=== PATIENT | male | born 1960 | race Caucasian/White ===

== ENCOUNTER → 2016-02-16 | Outpatient (REF) | payer BC ==
[2016-02-16 11:59] LABS: ALBUMIN 3.8 GM/DL (3.2-5.2); ALBUMIN/GLOBULIN RATIO 0.95 (1.00-1.93); ALKALINE PHOSPHATASE 117 U/L (45-117); ALT/SGPT 18 U/L (12-78); ANION GAP 11 MEQ/L (8-16); AST/SGOT 9 U/L (15-37); BILIRUBIN,TOTAL 0.7 MG/DL (0.2-1.0); BLOOD UREA NITROGEN 11 MG/DL (7-18); CALCIUM LEVEL 9.5 MG/DL (8.5-10.1); CARBON DIOXIDE LEVEL 29 MEQ/L (21-32); CHLORIDE LEVEL 99 MEQ/L (98-107); CHOLESTEROL LEVEL 217 MG/DL (<200); CREATININE FOR GFR 0.77 MG/DL (0.70-1.30); GLOMERULAR FILTRATION RATE > 60.0 (>56); GLUCOSE, FASTING 239 MG/DL (70-105); POTASSIUM SERUM 4.2 MEQ/L (3.5-5.1); SODIUM LEVEL 139 MEQ/L (136-145); TOTAL PROTEIN 7.8 GM/DL (6.4-8.2); TRIGLYCERIDES LEVEL 189 MG/DL (<150)
[2016-02-16 13:00] LABS: BASO % 0.4 % (0.0-1.0); EOS # 0.1 K/mm3 (0.0-0.50); EOS % 1.2 % (0.0-3.0); LARGE UNSTAINED CELL # 0.2 K/mm3 (0.0-0.4); LARGE UNSTAINED CELL % 1.8 % (0.0-4.0); LYMPH # 1.4 K/mm3 (1.5-4.5); LYMPH % 16.3 % (24.0-44.0); MEAN CORPUSCULAR HEMOGLOBIN 29.5 pg (27.0-33.0); MEAN CORPUSCULAR HGB CONC 34.6 g/dl (32.0-36.5); MEAN CORPUSCULAR VOLUME 85.4 fl (80.0-96.0); MONO # 0.6 K/mm3 (0.0-0.8); MONO % 6.7 % (0.0-5.0); NEUTROPHILS # 6.2 K/mm3 (1.8-7.7); NEUTROPHILS % 73.6 % (36.0-66.0); PLATELET COUNT, AUTOMATED 318 k/mm3 (150-450); RED CELL DISTRIBUTION WIDTH 12.3 % (11.5-14.5); RETIC HEMOGLOBIN CONTENT CHr 29.4 PG (24-36); RETICULOCYTE ABSOLUTE ADVIA212 108 x10(9)/L (17-77); WHITE BLOOD COUNT 8.4 K/mm3 (4.0-10.0)
[2016-02-16 13:15] LABS: ERYTHROCYTE SEDIMENTATION RATE 60 mm/hr (0-20)
[2016-02-17 14:09] LABS: Lyme Disease IgG/IgM Antibodie <0.91 ISR (0.00-0.90); Lyme Disease IgM Ab Quantitati <0.80 index (0.00-0.79)
== END ==
LOC: M SFHCCLAY 08:02
PROVIDERS: ATTEND Nurse Practitioner Family
DX: E11.65 Type 2 diabetes mellitus with hyperglycemia (principal); E78.2 Mixed hyperlipidemia; Z12.5 Encounter for screening for malignant neoplasm of prostate
CPT/HCPCS: 80053; 80061; 82043; 83036; 85025; 85046; 85652; 86617; G0103

== ENCOUNTER → 2016-02-16 | Outpatient (CLI) | payer BC ==
--- NOTE | 2016-02-16 14:20 | REP ---
CERVICAL SPINE SERIES: Eight views. HISTORY: Neck pain. COMPARISON: Cervical spine views from 11/27/2006. FINDINGS: There is developmental fusion at the C4-5 disc and facet level, unchanged. There is straightening of the normal cervical lordosis. There is some limitation of flexion/extension range of motion, but no evidence of instability or subluxation is seen. There is degenerative disc disease at C5-6 and C6-7 with disc space narrowing and anterior fragmented osteophyte formation at both of these levels. These changes are not new but are a little more pronounced than on the 2006 prior exam. Swimmer's lateral view shows no additional abnormality. Open-mouth odontoid view is unremarkable. On the AP radiograph, there is mild facet hypertrophy bilaterally at C3-4. Oblique images show intact neural foramina bilaterally at each cervical level and normally aligned facets. IMPRESSION: 1. Developmental fusion of the disc and facet joints at C4-5. 2. Degenerative disc disease at C5-6 and C6-7 slightly more pronounced than on the 2006 prior study. 3. Mild osteoarthritic facet hypertrophy bilaterally at C3-4.
== END ==
LOC: M CLY 13:11
PROVIDERS: ATTEND Nurse Practitioner Family
DX: M54.2 Cervicalgia (principal)

== ENCOUNTER 2016-03-11 12:38 | Emergency (ER) | payer BC ==
[2016-03-11] MEDS ORDERED: KETOROLAC 30 MG/ML VIAL (J1885) As Ordered ONE (14:25)
[2016-03-11 14:50] LABS: MEAN CORPUSCULAR HEMOGLOBIN 28.4 pg (27.0-33.0); MEAN CORPUSCULAR VOLUME 83.5 fl (80.0-96.0); PLATELET COUNT, AUTOMATED 289 k/mm3 (150-450); RED CELL DISTRIBUTION WIDTH 13.7 % (11.5-14.5); WHITE BLOOD COUNT 8.3 K/mm3 (4.0-10.0)
[2016-03-11 15:03] LABS: ANION GAP 7 MEQ/L (8-16); BLOOD UREA NITROGEN 10 MG/DL (7-18); CALCIUM LEVEL 9.8 MG/DL (8.5-10.1); CARBON DIOXIDE LEVEL 29 MEQ/L (21-32); CHLORIDE LEVEL 103 MEQ/L (98-107); CREATININE FOR GFR 0.69 MG/DL (0.70-1.30); GLOMERULAR FILTRATION RATE > 60.0 (>56); GLUCOSE, FASTING 168 MG/DL (70-105); SODIUM LEVEL 139 MEQ/L (136-145)
[2016-03-11 15:16] LABS: BANDS 1 % (< 11); EOSINOPHILS 2 % (0-5)
--- NOTE | 2016-03-11 15:16 | REP ---
DUPLEX EXTREMITY VENOUS ULTRASOUND: Right lower extremity. HISTORY: Swelling. Question DVT. FINDINGS: The deep veins are anechoic and fully compressible from the groin to the popliteal fossa in the right lower extremity. Color flow imaging is homogeneous. Spectral Doppler interrogation demonstrates intact respiratory variation in flow and normal manual augmentation of flow. There is no evidence of deep vein thrombosis. There is an enlarged right groin lymph node measuring 4.4 x 1.5 x 4.0 cm. This displays persistent fatty hyperechoic center. IMPRESSION: One enlarged right groin lymph node is seen. Otherwise negative right lower extremity duplex venous ultrasound. No evidence of deep vein thrombosis. Signed by Johan Ruiz MD 03/11/2016 03:22 P
--- NOTE | 2016-03-11 15:30 | REP ---
Right foot four views : There is no fracture or dislocation. Mineralization and joint spaces are normal. There are no calcifications or foreign bodies. Impression: Negative right foot . Signed by Josue Solano MD 03/11/2016 03:21 P
[2016-03-11 15:36] LABS: ERYTHROCYTE SEDIMENTATION RATE 56 mm/hr (0-20)
--- NOTE | 2016-03-11 16:25 | EDDOCDS ---
Nurse's Notes [facility] Name: Mustapha Lares Age: 55 yrs Sex: Male : 1960 Arrival Date: 03/11/2016 Time: 12:38 Bed PR Private MD: Basilio Gu W Diagnosis: Pain in right ankle and joints of right foot;Low back pain Presentation: 03/11 12:42 Presenting complaint: Patient states: Pt presents with c/o severe ankle pain and dls swelling bilaterally more so on right. PMD r/o gout and lyme disease but sx continue. The patients lower extremity appears normal on examination. Adult Sepsis Screening: The patient does not have new or worsening altered mentation. Patient's respiratory rate is less than 22. Systolic blood pressure is greater than 100. Patient has a qSOFA score of 0- Negative Sepsis Screen. Suicide/Homicide risk assessment- the patient denies having any suicidal and/or homicidal ideations and does not present with any other emotional, behavioral or mental health complaints. 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 Transition of care: patient was not received from another setting of care. 12:42 Acuity: ANGIE Level 3 dls 12:42 Method Of Arrival: Walkin/Carried/Asstd dls Triage Assessment: 12:48 General: Appears uncomfortable, Behavior is cooperative. Pain: Pain currently is 8 out dls of 10 on a pain scale. HIV screening NA for this visit Offered previously. Musculoskeletal: Reports pain in right leg and left leg. Historical: - Allergies: beta blockers; Dhaktps-Hry-Pzh Reductase Inhibitors; BLANE INHIBITORS; - Home Meds: 1. Lantus 100 unit/mL Sub-Q crtg 60 unit daily 2. famotidine 10 mg Oral tab 1 tab once daily - PMHx: Diabetes - IDDM: controlled; Kidney stones; - PSHx: Gastric Bypass; Hernia repair; leg surgery; - Social history: Smoking status: Patient/guardian denies using No barriers to communication noted, The patient speaks fluent Syrian. - : The pt / caregiver states he / she is not on anticoagulants. Home medication list is obtained from the patient. - Exposure Risk Screening:: None identified. Vital Signs: 12:40 BP 167 / 101; Pulse 74; Resp 18 S; Temp 96.3(O); Pulse Ox 99% on R/A; Weight 120.2 kg dd6 (R); Height 6 ft. 2 in. (187.96 cm) (R); 16:17 BP 155 / 89; Pulse 72; Resp 18; Temp 98.5(TE); Pulse Ox 96% on R/A; Pain 4/10; ar3 12:40 Body Mass Index 34.02 (120.20 kg, 187.96 cm) dd6 Vitals: 12:40 Log In Time: March 11, 2016 at 12:38. dd6 ED Course: 12:40 Patient visited by Feliz Morton PCA. dd6 12:40 Basilio Gu is Private Physician. dd6 12:40 Patient moved to Waiting dd6 12:41 Patient moved to Pre RCE dd6 12:44 Triage Initiated dls 13:51 Patient moved to Triage 1 ar3 13:59 Manny Anderson PA is PHCP. mo1 13:59 Danny Rocha MD is Attending Physician. mo1 14:07 Patient visited by Manny Anderson PA. mo1 14:38 Patient moved to TR1 ar3 14:38 CRP Sent. ar3 14:38 ESR Sent. ar3 14:38 BMP Sent. ar3 14:38 CBC with Diff Sent. ar3 14:38 VENITA Sent. ar3 14:46 [facility] [place] Agreement was scanned into [employer] and attached to record. mm15 14:48 Patient moved to Ultrasound am10 15:03 Patient moved to TR1 am10 15:11 DIFFERENTIAL NO CHARGE Sent. ar3 15:37 US Lower Extremity R/O DVT Returned. EDMS 15:37 Foot, Complete Returned. EDMS 15:57 Patient moved to PR2 / 26 ms18 16:06 Patient visited by Fidelina Rosales PCA. ar3 16:09 Trung Day DPM is Referral Physician. mo1 16:09 Domo Miranda DPM is Referral Physician. mo1 16:09 Basilio Gu is Referral Physician. mo1 16:17 Patient visited by Fidelina Rosales PCA. ar3 Administered Medications: 14:15 Drug: ketorolac 60 mg [ketorolac 30 mg/mL (1 mL) injection solution (2 mL)] Route: IM; kcs Site: left deltoid; Order Results: Lab Order: CBC with Diff; SPEC'M 03/11/16 14:36 Test: WHITE BLOOD COUNT; Value: 8.3; Range: 4.0-10.0; Units: K/mm3; Status: F Test: RED BLOOD COUNT; Value: 5.09; Range: 4.30-6.10; Units: M/mm3; Status: F Test: HEMOGLOBIN; Value: 14.4; Range: 14.0-18.0; Units: g/dl; Status: F Test: HEMATOCRIT; Value: 42.5; Range: 42.0-52.0; Units: %; Status: F Test: MEAN CORPUSCULAR VOLUME; Value: 83.5; Range: 80.0-96.0; Units: fl; Status: F Test: MEAN CORPUSCULAR HEMOGLOBIN; Value: 28.4; Range: 27.0-33.0; Units: pg; Status: F Test: MEAN CORPUSCULAR HGB CONC; Value: 34.0; Range: 32.0-36.5; Units: g/dl; Status: F Test: RED CELL DISTRIBUTION WIDTH; Value: 13.7; Range: 11.5-14.5; Units: %; Status: F Test: PLATELET COUNT, AUTOMATED; Value: 289; Range: 150-450; Units: k/mm3; Status: F Test: NEUTROPHILS; Value: 74; Range: 35-75; Units: %; Status: F Test: BANDS; Value: 1; Range: < 11; Units: %; Status: F Test: LYMPHOCYTES; Value: 20; Range: 16-52; Units: %; Status: F Test: MONOCYTES; Value: 3; Range: 0-8; Units: %; Status: F Test: EOSINOPHILS; Value: 2; Range: 0-5; Units: %; Status: F Test: RBC MORPHOLOGY; Value: NORMAL; Status: F Lab Order: BMP; SPEC'M 03/11/16 14:36 Test: GLUCOSE, FASTING; Value: 168; Range: 70-105; Abnormal: Above high normal; Units: MG/DL; Status: F Test: BLOOD UREA NITROGEN; Value: 10; Range: 7-18; Units: MG/DL; Status: F Test: CREATININE FOR GFR; Value: 0.69; Range: 0.70-1.30; Abnormal: Below low normal; Units: MG/DL; Status: F Test: GLOMERULAR FILTRATION RATE; Value: > 60.0; Range: >56; Status: F Test: SODIUM LEVEL; Value: 139; Range: 136-145; Units: MEQ/L; Status: F Test: POTASSIUM SERUM; Value: 4.0; Range: 3.5-5.1; Units: MEQ/L; Status: F Test: CHLORIDE LEVEL; Value: 103; Range: 98-107; Units: MEQ/L; Status: F Test: CARBON DIOXIDE LEVEL; Value: 29; Range: 21-32; Units: MEQ/L; Status: F Test: ANION GAP; Value: 7; Range: 8-16; Abnormal: Below low normal; Units: MEQ/L; Status: F Test: CALCIUM LEVEL; Value: 9.8; Range: 8.5-10.1; Units: MG/DL; Status: F Test Note: ; Units are mL/min/1.73 m2 Chronic Kidney Disease Staging per NKF: Stage I & II GFR >=60 Normal to Mildly Decreased Stage III GFR 30-59 Moderately Decreased Stage IV GFR 15-29 Severely Decreased Stage V GFR <15 Very Little GFR Left ESRD GFR <15 on FLIGHT CREW TIME CLERK Lab Order: ESR; SPEC'M 03/11/16 14:36 Test: ERYTHROCYTE SEDIMENTATION RATE; Value: 56; Range: 0-20; Abnormal: Above high normal; Units: mm/hr; Status: F Lab Order: CRP; SPEC'M 03/11/16 14:36 Test: C REACTIVE PROTEIN QUANTITATIV; Value: 6.56; Range: 0.00-0.30; Abnormal: Above high normal; Units: MG/DL; Status: F Lab Order: PLATELET ESTIMATE; SPEC'M 03/11/16 14:36 Test: PLATELET ESTIMATE; Value: NORMAL; Range: NORMAL; Status: F Radiology Order: US Lower Extremity R/O DVT Test: US Lower Extremity R/O DVT REASON FOR EXAMINATION: swelling; DUPLEX EXTREMITY VENOUS ULTRASOUND: Right lower extremity.; ; HISTORY: Swelling. Question DVT.; ; FINDINGS: The deep veins are anechoic and fully compressible from the groin to; the popliteal fossa in the right lower extremity. Color flow imaging is; homogeneous. Spectral Doppler interrogation demonstrates intact respiratory; variation in flow and normal manual augmentation of flow. There is no evidence; of deep vein thrombosis. There is an enlarged right groin lymph node measuring; 4.4 x 1.5 x 4.0 cm. This displays persistent fatty hyperechoic center.; ; IMPRESSION: One enlarged right groin lymph node is seen. Otherwise negative; right lower extremity duplex venous ultrasound. No evidence of deep vein; thrombosis.; ; ; Signed by; Johan Ruiz MD 03/11/2016 03:22 P; Radiology Order: Foot, Complete Test: Foot, Complete REASON FOR EXAMINATION: swelling; Right foot four views :; ; There is no fracture or dislocation.; ; Mineralization and joint spaces are normal.; ; There are no calcifications or foreign bodies.; ; Impression:; ; Negative right foot .; ; ; Signed by; Josue Solano MD 03/11/2016 03:21 P; Outcome: 16:10 Discharge ordered by Provider. mo1 16:24 Patient left the ED. kcs Signatures: Dispatcher [employer] EDMS Alessia Perez RN RN kcs Leigh Oliva RN RN dls Lilian Landry am10 Feliz Morton, SCREENING TECH SCREENING TECH dd6 Fidelina Rosales, SCREENING TECH SCREENING TECH ar3 Manny Anderson PA PA mo1 Cliff Hassan mm15 Smiley Danielle RN RN ms18 MTDD
--- NOTE | 2016-03-11 16:25 | EDDOCDS ---
Physician Documentation [facility] Name: Mustapha Lares Age: 55 yrs Sex: Male : 1960 Arrival Date: 03/11/2016 Time: 12:38 Bed Private MD: Basilio Gu W Disposition: 03/11/16 16:10 Discharged to Home/Self Care. Impression: Pain in right ankle and joints of right foot, Low back pain. - Condition is Stable. - Discharge Instructions: Arthralgia, Back Pain, Adult. - Prescriptions for Tylenol- Codeine #3 300-30 mg Oral Tablet - take 2 tablets by ORAL route every 6 hours As needed MDD: 4 tabs; 20 tablet. - Medication Reconciliation, Local Pharmacy Hours form. - Follow up: Trung Day DPM; When: Call to arrange an appointment; Reason: Recheck today's complaints, Continuance of care. Follow up: Domo Miranda DPM; When: Call to arrange an appointment; Reason: Recheck today's complaints, Continuance of care. Follow up: Basilio Gu; When: Call to arrange an appointment; Reason: Recheck today's complaints, Continuance of care. - Problem is new. - Symptoms are unchanged. Historical: - Allergies: beta blockers; Tzqanex-Byw-Dwp Reductase Inhibitors; NICOLAS INHIBITORS; - Home Meds: 1. Lantus 100 unit/mL Sub-Q crtg 60 unit daily 2. famotidine 10 mg Oral tab 1 tab once daily - PMHx: Diabetes - IDDM: controlled; Kidney stones; - PSHx: Gastric Bypass; Hernia repair; leg surgery; - Social history: Smoking status: Patient/guardian denies using No barriers to communication noted, The patient speaks fluent Indonesian. - : The pt / caregiver states he / she is not on anticoagulants. Home medication list is obtained from the patient. - Exposure Risk Screening:: None identified. Vital Signs: 03/11 12:40 BP 167 / 101; Pulse 74; Resp 18 S; Temp 96.3(O); Pulse Ox 99% on R/A; Weight 120.2 kg / dd6 265 lbs (R); Height 6 ft. 2 in. (187.96 cm) (R); 16:17 BP 155 / 89; Pulse 72; Resp 18; Temp 98.5(TE); Pulse Ox 96% on R/A; Pain 4/10; ar3 12:40 Body Mass Index 34.02 (120.20 kg, 187.96 cm) dd6 MDM: 14:19 ketorolac 60 mg IM once ordered. mo1 14:20 VENITA Ordered. EDMS 14:20 CBC with Diff Ordered. EDMS 14:20 BMP Ordered. EDMS 14:20 ESR Ordered. EDMS 14:20 CRP Ordered. EDMS 14:20 US Lower Extremity R/O DVT Ordered. EDMS 14:21 Foot, Complete Ordered. EDMS 14:45 Financial registration complete. mm15 14:46 [facility] Payment Agreement was scanned into [employer] and attached to record. mm15 14:52 DIFFERENTIAL NO CHARGE Ordered. EDMS 15:34 CRP Reviewed. mo1 15:34 BMP Reviewed. mo1 15:35 CBC with Diff Reviewed. mo1 15:55 ESR Reviewed. mo1 15:56 PLATELET ESTIMATE Reviewed. mo1 16:08 Nicolas Wrap ordered. mo1 Administered Medications: 14:15 Drug: ketorolac 60 mg [ketorolac 30 mg/mL (1 mL) injection solution (2 mL)] Route: IM; kcs Site: left deltoid; Signatures: Dispatcher [employer] Alessia Gutierrez RN RN kcs Scott, Debra, RN RN dls O'Hagan, Michael, PA PA mo1 Cliff Hassan mm15 The chart was reviewed and I authenticate all verbal orders and agree with the evaluation and treatment provided.Attachments: 14:46 [facility] Payment Agreement mm15 MTDD
--- NOTE | 2016-03-13 17:25 | EDDOCDS ---
Physician Documentation [facility] Name: Mustapha Lares Age: 55 yrs Sex: Male : 1960 Arrival Date: 03/11/2016 Time: 12:38 Bed Private MD: Basilio Gu W Disposition: 03/11/16 16:10 Discharged to Home/Self Care. Impression: Pain in right ankle and joints of right foot, Low back pain. - Condition is Stable. - Discharge Instructions: Arthralgia, Back Pain, Adult. - Prescriptions for Tylenol- Codeine #3 300-30 mg Oral Tablet - take 2 tablets by ORAL route every 6 hours As needed MDD: 4 tabs; 20 tablet. - Medication Reconciliation, Local Pharmacy Hours form. - Follow up: Trung Day DPM; When: Call to arrange an appointment; Reason: Recheck today's complaints, Continuance of care. Follow up: Domo Miranda DPM; When: Call to arrange an appointment; Reason: Recheck today's complaints, Continuance of care. Follow up: Basilio Gu; When: Call to arrange an appointment; Reason: Recheck today's complaints, Continuance of care. - Problem is new. - Symptoms are unchanged. Historical: - Allergies: beta blockers; Mcfeapo-Ukx-Yzm Reductase Inhibitors; NICOLAS INHIBITORS; - Home Meds: 1. Lantus 100 unit/mL Sub-Q crtg 60 unit daily 2. famotidine 10 mg Oral tab 1 tab once daily - PMHx: Diabetes - IDDM: controlled; Kidney stones; - PSHx: Gastric Bypass; Hernia repair; leg surgery; - Social history: Smoking status: Patient/guardian denies using No barriers to communication noted, The patient speaks fluent Persian. - : The pt / caregiver states he / she is not on anticoagulants. Home medication list is obtained from the patient. - Exposure Risk Screening:: None identified. Vital Signs: 03/11 12:40 BP 167 / 101; Pulse 74; Resp 18 S; Temp 96.3(O); Pulse Ox 99% on R/A; Weight 120.2 kg / dd6 265 lbs (R); Height 6 ft. 2 in. (187.96 cm) (R); 16:17 BP 155 / 89; Pulse 72; Resp 18; Temp 98.5(TE); Pulse Ox 96% on R/A; Pain 4/10; ar3 12:40 Body Mass Index 34.02 (120.20 kg, 187.96 cm) dd6 MDM: 14:19 ketorolac 60 mg IM once ordered. mo1 14:20 VENITA Ordered. EDMS 14:20 CBC with Diff Ordered. EDMS 14:20 BMP Ordered. EDMS 14:20 ESR Ordered. EDMS 14:20 CRP Ordered. EDMS 14:20 US Lower Extremity R/O DVT Ordered. EDMS 14:21 Foot, Complete Ordered. EDMS 14:45 Financial registration complete. mm15 14:46 [facility] Payment Agreement was scanned into [employer] and attached to record. mm15 14:52 DIFFERENTIAL NO CHARGE Ordered. EDMS 15:34 CRP Reviewed. mo1 15:34 BMP Reviewed. mo1 15:35 CBC with Diff Reviewed. mo1 15:55 ESR Reviewed. mo1 15:56 PLATELET ESTIMATE Reviewed. mo1 16:08 Nicolas Wrap ordered. mo1 22:12 T-Sheet-- Draft Copy was scanned into [employer] and attached to record. klr Administered Medications: 14:15 Drug: ketorolac 60 mg [ketorolac 30 mg/mL (1 mL) injection solution (2 mL)] Route: IM; kcs Site: left deltoid; Signatures: Dispatcher [employer] Alessia Gutierrez RN RN kcs Scott, Debra, RN RN dls O'Hagan, Michael, PA PA mo1 Cliff Hassan mm15 Lalitha Grullon klr The chart was reviewed and I authenticate all verbal orders and agree with the evaluation and treatment provided.Attachments: 14:46 [facility] Payment Agreement mm15 22:12 T-Sheet-- Draft Copy klr Chart Complete MTDD
--- NOTE | 2016-03-13 17:25 | EDDOCDS ---
Physician Documentation [facility] Name: Mustapha Lares Age: 55 yrs Sex: Male : 1960 Arrival Date: 03/11/2016 Time: 12:38 Bed Private MD: Basilio Gu W Disposition: 03/11/16 16:10 Discharged to Home/Self Care. Impression: Pain in right ankle and joints of right foot, Low back pain. - Condition is Stable. - Discharge Instructions: Arthralgia, Back Pain, Adult. - Prescriptions for Tylenol- Codeine #3 300-30 mg Oral Tablet - take 2 tablets by ORAL route every 6 hours As needed MDD: 4 tabs; 20 tablet. - Medication Reconciliation, Local Pharmacy Hours form. - Follow up: Trung Day DPM; When: Call to arrange an appointment; Reason: Recheck today's complaints, Continuance of care. Follow up: Domo Miranda DPM; When: Call to arrange an appointment; Reason: Recheck today's complaints, Continuance of care. Follow up: Basilio Gu; When: Call to arrange an appointment; Reason: Recheck today's complaints, Continuance of care. - Problem is new. - Symptoms are unchanged. Historical: - Allergies: beta blockers; Javrsvw-Buy-Uql Reductase Inhibitors; NICOLAS INHIBITORS; - Home Meds: 1. Lantus 100 unit/mL Sub-Q crtg 60 unit daily 2. famotidine 10 mg Oral tab 1 tab once daily - PMHx: Diabetes - IDDM: controlled; Kidney stones; - PSHx: Gastric Bypass; Hernia repair; leg surgery; - Social history: Smoking status: Patient/guardian denies using No barriers to communication noted, The patient speaks fluent Tajik. - : The pt / caregiver states he / she is not on anticoagulants. Home medication list is obtained from the patient. - Exposure Risk Screening:: None identified. Vital Signs: 03/11 12:40 BP 167 / 101; Pulse 74; Resp 18 S; Temp 96.3(O); Pulse Ox 99% on R/A; Weight 120.2 kg / dd6 265 lbs (R); Height 6 ft. 2 in. (187.96 cm) (R); 16:17 BP 155 / 89; Pulse 72; Resp 18; Temp 98.5(TE); Pulse Ox 96% on R/A; Pain 4/10; ar3 12:40 Body Mass Index 34.02 (120.20 kg, 187.96 cm) dd6 MDM: 14:19 ketorolac 60 mg IM once ordered. mo1 14:20 VENITA Ordered. EDMS 14:20 CBC with Diff Ordered. EDMS 14:20 BMP Ordered. EDMS 14:20 ESR Ordered. EDMS 14:20 CRP Ordered. EDMS 14:20 US Lower Extremity R/O DVT Ordered. EDMS 14:21 Foot, Complete Ordered. EDMS 14:45 Financial registration complete. mm15 14:46 [facility] Payment Agreement was scanned into [employer] and attached to record. mm15 14:52 DIFFERENTIAL NO CHARGE Ordered. EDMS 15:34 CRP Reviewed. mo1 15:34 BMP Reviewed. mo1 15:35 CBC with Diff Reviewed. mo1 15:55 ESR Reviewed. mo1 15:56 PLATELET ESTIMATE Reviewed. mo1 16:08 Nicolas Wrap ordered. mo1 22:12 T-Sheet-- Draft Copy was scanned into [employer] and attached to record. klr Administered Medications: 14:15 Drug: ketorolac 60 mg [ketorolac 30 mg/mL (1 mL) injection solution (2 mL)] Route: IM; kcs Site: left deltoid; Signatures: Dispatcher [employer] Alessia Gutierrez RN RN kcs Scott, Debra, RN RN dls O'Hagan, Michael, PA PA mo1 Cliff Hassan mm15 Lalitha Grullon klr The chart was reviewed and I authenticate all verbal orders and agree with the evaluation and treatment provided.Attachments: 14:46 [facility] Payment Agreement mm15 22:12 T-Sheet-- Draft Copy klr Chart Complete MTDD
--- NOTE | 2016-03-13 17:25 | EDDOCDS ---
Nurse's Notes [facility] Name: Mustapha Lares Age: 55 yrs Sex: Male : 1960 Arrival Date: 03/11/2016 Time: 12:38 Bed PR Private MD: Basilio Gu W Diagnosis: Pain in right ankle and joints of right foot;Low back pain Presentation: 03/11 12:42 Presenting complaint: Patient states: Pt presents with c/o severe ankle pain and dls swelling bilaterally more so on right. PMD r/o gout and lyme disease but sx continue. The patients lower extremity appears normal on examination. Adult Sepsis Screening: The patient does not have new or worsening altered mentation. Patient's respiratory rate is less than 22. Systolic blood pressure is greater than 100. Patient has a qSOFA score of 0- Negative Sepsis Screen. Suicide/Homicide risk assessment- the patient denies having any suicidal and/or homicidal ideations and does not present with any other emotional, behavioral or mental health complaints. Status: Patient is not a off premise service representative or dependent. Transition of care: patient was not received from another setting of care. 12:42 Acuity: ANGIE Level 3 dls 12:42 Method Of Arrival: Walkin/Carried/Asstd dls Triage Assessment: 12:48 General: Appears uncomfortable, Behavior is cooperative. Pain: Pain currently is 8 out dls of 10 on a pain scale. HIV screening NA for this visit Offered previously. Musculoskeletal: Reports pain in right leg and left leg. Historical: - Allergies: beta blockers; Xfmhhng-Aby-Woj Reductase Inhibitors; BLANE INHIBITORS; - Home Meds: 1. Lantus 100 unit/mL Sub-Q crtg 60 unit daily 2. famotidine 10 mg Oral tab 1 tab once daily - PMHx: Diabetes - IDDM: controlled; Kidney stones; - PSHx: Gastric Bypass; Hernia repair; leg surgery; - Social history: Smoking status: Patient/guardian denies using No barriers to communication noted, The patient speaks fluent Bulgarian. - : The pt / caregiver states he / she is not on anticoagulants. Home medication list is obtained from the patient. - Exposure Risk Screening:: None identified. Screenin:20 Screening information is obtained from prior medical records. Fall risk: No risks kcs identified. Assistance ADL's: requires no assistance with activities of daily living. Abuse/DV Screen: The patient / caregiver reports he/she is: not in a situation that causes fear, pain or injury. Nutritional screening: On diabetic diet, lo salt. Advance Directives: Currently, there is no health care proxy. There is no living will. home support is adequate. Assessment: 16:20 Reassessment: Patient states symptoms have not improved. General: Appears comfortable, kcs well developed, well nourished, well groomed, Behavior is cooperative, pleasant. Pain: Location: left leg and right leg. Neurological: Level of Consciousness is awake, alert. Respiratory: Airway is patent Respiratory effort is even, unlabored, Respiratory pattern is regular, symmetrical. Derm: Skin is intact, is healthy with good turgor, Skin is dry, Skin is normal. Vital Signs: 12:40 BP 167 / 101; Pulse 74; Resp 18 S; Temp 96.3(O); Pulse Ox 99% on R/A; Weight 120.2 kg dd6 (R); Height 6 ft. 2 in. (187.96 cm) (R); 16:17 BP 155 / 89; Pulse 72; Resp 18; Temp 98.5(TE); Pulse Ox 96% on R/A; Pain 4/10; ar3 12:40 Body Mass Index 34.02 (120.20 kg, 187.96 cm) dd6 Vitals: 12:40 Log In Time: March 11, 2016 at 12:38. dd6 ED Course: 12:40 Patient visited by Feliz Morton PCA. dd6 12:40 Basilio Gu is Private Physician. dd6 12:40 Patient moved to Waiting dd6 12:41 Patient moved to Pre RCE dd6 12:44 Triage Initiated dls 13:51 Patient moved to Triage 1 ar3 13:59 Manny Anderson PA is PHCP. mo1 13:59 Danny Rocha MD is Attending Physician. mo1 14:07 Patient visited by Manny Anderson PA. mo1 14:38 Patient moved to TR1 ar3 14:38 CRP Sent. ar3 14:38 ESR Sent. ar3 14:38 BMP Sent. ar3 14:38 CBC with Diff Sent. ar3 14:38 VENITA Sent. ar3 14:46 [facility] Payment Agreement was scanned into TASCET and attached to record. mm15 14:48 Patient moved to Ultrasound am10 15:03 Patient moved to TR1 am10 15:11 DIFFERENTIAL NO CHARGE Sent. ar3 15:37 US Lower Extremity R/O DVT Returned. EDMS 15:37 Foot, Complete Returned. EDMS 15:57 Patient moved to PR2 / ms18 16:06 Patient visited by Fidelina Rosales PCA. ar3 16:09 Trung Day DPM is Referral Physician. mo1 16:09 Domo Miranda DPM is Referral Physician. mo1 16:09 Basilio Gu is Referral Physician. mo1 16:17 Patient visited by Fidelina Rosales PCA. ar3 16:20 The patient / caregiver is instructed regarding the plan of care and ED course. kcs 16:20 No IV's were initiated during this patient's visit. No procedures done that require kcs assistance. 22:12 T-Sheet-- Draft Copy was scanned into TASCET and attached to record. klr Administered Medications: 14:15 Drug: ketorolac 60 mg [ketorolac 30 mg/mL (1 mL) injection solution (2 mL)] Route: IM; kcs Site: left deltoid; Order Results: Lab Order: VENITA; SPEC'M 03/11/16 14:36 Test: ANTINUCLEAR ANTIBODIES DIRECT; Value: Negative; Range: Negative; Status: F Test Note: ; Performed at: RN - [facility] [address] [id number] Tobacco Buyer: Alcira De La Cruz MD, Phone: [phone] Lab Order: CBC with Diff; SPEC'M 03/11/16 14:36 Test: WHITE BLOOD COUNT; Value: 8.3; Range: 4.0-10.0; Units: K/mm3; Status: F Test: RED BLOOD COUNT; Value: 5.09; Range: 4.30-6.10; Units: M/mm3; Status: F Test: HEMOGLOBIN; Value: 14.4; Range: 14.0-18.0; Units: g/dl; Status: F Test: HEMATOCRIT; Value: 42.5; Range: 42.0-52.0; Units: %; Status: F Test: MEAN CORPUSCULAR VOLUME; Value: 83.5; Range: 80.0-96.0; Units: fl; Status: F Test: MEAN CORPUSCULAR HEMOGLOBIN; Value: 28.4; Range: 27.0-33.0; Units: pg; Status: F Test: MEAN CORPUSCULAR HGB CONC; Value: 34.0; Range: 32.0-36.5; Units: g/dl; Status: F Test: RED CELL DISTRIBUTION WIDTH; Value: 13.7; Range: 11.5-14.5; Units: %; Status: F Test: PLATELET COUNT, AUTOMATED; Value: 289; Range: 150-450; Units: k/mm3; Status: F Test: NEUTROPHILS; Value: 74; Range: 35-75; Units: %; Status: F Test: BANDS; Value: 1; Range: < 11; Units: %; Status: F Test: LYMPHOCYTES; Value: 20; Range: 16-52; Units: %; Status: F Test: MONOCYTES; Value: 3; Range: 0-8; Units: %; Status: F Test: EOSINOPHILS; Value: 2; Range: 0-5; Units: %; Status: F Test: RBC MORPHOLOGY; Value: NORMAL; Status: F Lab Order: [facility]; SPEC'M 03/11/16 14:36 Test: GLUCOSE, FASTING; Value: 168; Range: 70-105; Abnormal: Above high normal; Units: MG/DL; Status: F Test: BLOOD UREA NITROGEN; Value: 10; Range: 7-18; Units: MG/DL; Status: F Test: CREATININE FOR GFR; Value: 0.69; Range: 0.70-1.30; Abnormal: Below low normal; Units: MG/DL; Status: F Test: GLOMERULAR FILTRATION RATE; Value: > 60.0; Range: >56; Status: F Test: SODIUM LEVEL; Value: 139; Range: 136-145; Units: MEQ/L; Status: F Test: POTASSIUM SERUM; Value: 4.0; Range: 3.5-5.1; Units: MEQ/L; Status: F Test: CHLORIDE LEVEL; Value: 103; Range: 98-107; Units: MEQ/L; Status: F Test: CARBON DIOXIDE LEVEL; Value: 29; Range: 21-32; Units: MEQ/L; Status: F Test: ANION GAP; Value: 7; Range: 8-16; Abnormal: Below low normal; Units: MEQ/L; Status: F Test: CALCIUM LEVEL; Value: 9.8; Range: 8.5-10.1; Units: MG/DL; Status: F Test Note: ; Units are mL/min/1.73 m2 Chronic Kidney Disease Staging per NKF: Stage I & II GFR >=60 Normal to Mildly Decreased Stage III GFR 30-59 Moderately Decreased Stage IV GFR 15-29 Severely Decreased Stage V GFR <15 Very Little GFR Left ESRD GFR <15 on MERCURY RECOVERER Lab Order: ESR; SPEC'M 03/11/16 14:36 Test: ERYTHROCYTE SEDIMENTATION RATE; Value: 56; Range: 0-20; Abnormal: Above high normal; Units: mm/hr; Status: F Lab Order: CRP; [facility]' 03/11/16 14:36 Test: C REACTIVE PROTEIN QUANTITATIV; Value: 6.56; Range: 0.00-0.30; Abnormal: Above high normal; Units: MG/DL; Status: F Lab Order: PLATELET ESTIMATE; [facility]' 03/11/16 14:36 Test: PLATELET ESTIMATE; Value: NORMAL; Range: NORMAL; Status: F Radiology Order: US Lower Extremity R/O DVT Test: US Lower Extremity R/O DVT REASON FOR EXAMINATION: swelling; DUPLEX EXTREMITY VENOUS ULTRASOUND: Right lower extremity.; ; HISTORY: Swelling. Question DVT.; ; FINDINGS: The deep veins are anechoic and fully compressible from the groin to; the popliteal fossa in the right lower extremity. Color flow imaging is; homogeneous. Spectral Doppler interrogation demonstrates intact respiratory; variation in flow and normal manual augmentation of flow. There is no evidence; of deep vein thrombosis. There is an enlarged right groin lymph node measuring; 4.4 x 1.5 x 4.0 cm. This displays persistent fatty hyperechoic center.; ; IMPRESSION: One enlarged right groin lymph node is seen. Otherwise negative; right lower extremity duplex venous ultrasound. No evidence of deep vein; thrombosis.; ; ; Signed by; Johan Ruiz MD 03/11/2016 03:22 P; Radiology Order: Foot, Complete Test: Foot, Complete REASON FOR EXAMINATION: swelling; Right foot four views :; ; There is no fracture or dislocation.; ; Mineralization and joint spaces are normal.; ; There are no calcifications or foreign bodies.; ; Impression:; ; Negative right foot .; ; ; Signed by; Josue Solano MD 03/11/2016 03:21 P; Outcome: 16:10 Discharge ordered by Provider. mo1 16:20 Discharge Assessment: Patient awake, alert and oriented x 3. No cognitive and/or kcs functional deficits noted. Patient verbalized understanding of disposition instructions. Patient awake and alert. patient administered narcotics - no. The following High Risk Discharge criteria are identified: None. Discharged to home ambulatory, with significant other. Condition: stable. Discharge instructions given to patient, Instructed on discharge instructions, follow up and referral plans. medication usage, no driving heavy equipment, no drinking with medication, Demonstrated understanding of instructions, medications, Pt was receptive of discharge instructions/ teaching. No special radiology studies were completed. Property sent home with patient. 16:24 Patient left the ED. kcs Signatures: Dispatcher [employer] EDMS Alessia Perez RN RN Leigh Parrish RN RN dls Lilian Landry am10 Feliz Morton, PLANIMETER OPERATOR PLANIMETER OPERATOR dd6 Fidelina Rosales, PLANIMETER OPERATOR PLANIMETER OPERATOR ar3 Manny Anderson PA PA mo1 Cliff Hassan mm15 Smiley Danielle RN RN ms18 Lalitha Grullon Chart Complete MTDD
== END 2016-03-11 16:24 | disposition home or self-care (01) ==
LOC: M ED 12:38
DX: M54.9 Dorsalgia, unspecified (principal); M19.071 Primary osteoarthritis, right ankle and foot; M25.571 Pain in right ankle and joints of right foot; E11.9 Type 2 diabetes mellitus without complications; Z87.442 Personal history of urinary calculi; Z98.84 Bariatric surgery status; Z79.4 Long term (current) use of insulin; Z79.899 Other long term (current) drug therapy; Z88.8 Allergy status to other drugs, medicaments and biological substances
CPT/HCPCS: 36415; 73630; 80048; 85025; 85652; 86038; 86140; 93971; 96372; 99283; J1885

== ENCOUNTER → 2016-12-22 | Outpatient (REF) | payer BC | LOC: M LAB REF 09:21 | PROVIDERS: ATTEND Physician Assistant | DX: J02.9 Acute pharyngitis, unspecified (principal) ==

== ENCOUNTER → 2017-02-17 | Outpatient (REF) | payer BC ==
[2017-02-18 11:47] LABS: HEMATOCRIT 42.7 % (42.0-52.0); HEMOGLOBIN 14.4 g/dl (14.0-18.0); MEAN CORPUSCULAR HEMOGLOBIN 29.1 pg (27.0-33.0); MEAN CORPUSCULAR HGB CONC 33.7 g/dl (32.0-36.5); MEAN CORPUSCULAR VOLUME 86.3 fl (80.0-96.0); PLATELET COUNT, AUTOMATED 258 10^3/uL (150-450); RED BLOOD COUNT 4.95 10^6/uL (4.30-6.10); RED CELL DISTRIBUTION WIDTH 12.8 % (11.5-14.5); WHITE BLOOD COUNT 4.9 10^3/uL (4.0-10.0)
[2017-02-18 11:54] LABS: URIC ACID 4.9 MG/DL (3.5-7.2)
[2017-02-18 11:54] LABS: C REACTIVE PROTEIN QUANTITATIV < 0.30 MG/DL (0.00-0.30)
[2017-02-18 12:09] LABS: ERYTHROCYTE SEDIMENTATION RATE 9 mm/hr (0-20)
== END ==
LOC: M SFHCCLAY 14:57
DX: E11.65 Type 2 diabetes mellitus with hyperglycemia (principal); M79.1 Myalgia
CPT/HCPCS: 84550

== ENCOUNTER → 2017-06-09 | Outpatient (REF) | payer BC ==
[2017-06-09 11:38] LABS: BASO # 0.1 10^3/uL (0.0-0.2); BASO % 1.2 % (0.0-1.0); EOS # 0.2 10^3/uL (0.0-0.50); EOS % 5.4 % (0.0-3.0); HEMATOCRIT 36.8 % (42.0-52.0); HEMOGLOBIN 12.1 g/dl (13.5-17.5); IMMATURE GRANULOCYTE % 0.2 % (0-3.0); LYMPH # 1.3 10^3/uL (1.5-4.5); LYMPH % 31.4 % (24.0-44.0); MEAN CORPUSCULAR HEMOGLOBIN 29.4 pg (27.0-33.0); MEAN CORPUSCULAR HGB CONC 32.9 g/dl (32.0-36.5); MEAN CORPUSCULAR VOLUME 89.3 fl (80.0-96.0); MONO # 0.4 10^3/uL (0.0-0.8); MONO % 9.4 % (0.0-5.0); NEUTROPHILS # 2.2 10^3/uL (1.8-7.7); NEUTROPHILS % 52.4 % (36.0-66.0); PLATELET COUNT, AUTOMATED 265 10^3/uL (150-450); RED BLOOD COUNT 4.12 10^6/uL (4.30-6.10); WHITE BLOOD COUNT 4.3 10^3/uL (4.0-10.0)
[2017-06-09 11:47] LABS: ALBUMIN 3.9 GM/DL (3.2-5.2); ALBUMIN/GLOBULIN RATIO 1.18 (1.00-1.93); ALKALINE PHOSPHATASE 84 U/L (45-117); ALT/SGPT 20 U/L (12-78); ANION GAP 4 MEQ/L (8-16); AST/SGOT 15 U/L (7-37); BILIRUBIN,TOTAL 0.7 MG/DL (0.2-1.0); BLOOD UREA NITROGEN 17 MG/DL (7-18); CARBON DIOXIDE LEVEL 32 MEQ/L (21-32); CHLORIDE LEVEL 106 MEQ/L (98-107); CHOLESTEROL LEVEL 187 MG/DL (<200); CHOLESTEROL RISK RATIO 2.833 (<5); CREATININE FOR GFR 0.83 MG/DL (0.70-1.30); GLOMERULAR FILTRATION RATE > 60.0 (>56); GLUCOSE, FASTING 151 MG/DL (70-100); HDL CHOLESTEROL 66 MG/DL (>40); LDL CHOLESTEROL 104.8 MG/DL (<100); NON-HDL-C 121 MG/DL; POTASSIUM SERUM 3.9 MEQ/L (3.5-5.1); SODIUM LEVEL 142 MEQ/L (136-145); TOTAL PROTEIN 7.2 GM/DL (6.4-8.2); TRIGLYCERIDES LEVEL 81 MG/DL (<150)
[2017-06-09 11:50] LABS: ESTIMATED AVERAGE GLUCOSE 154 MG/DL (60-110)
== END ==
LOC: M SFHCCLAY 08:10
DX: K28.4 Chronic or unspecified gastrojejunal ulcer with hemorrhage (principal); I10 Essential (primary) hypertension; E11.9 Type 2 diabetes mellitus without complications
CPT/HCPCS: 80053

== ENCOUNTER → 2017-06-09 | Outpatient (REF) | payer BC ==
[2017-06-09 11:47] LABS: ALT/SGPT 18 U/L (12-78); AST/SGOT 20 U/L (7-37); CHOLESTEROL LEVEL 188 MG/DL (<200); CHOLESTEROL RISK RATIO 2.805 (<5); CPK CREATINE PHOSPHOKINASE 228 U/L (39-308); HDL CHOLESTEROL 67 MG/DL (>40); NON-HDL-C 121 MG/DL; TRIGLYCERIDES LEVEL 80 MG/DL (<150)
== END ==
LOC: M LABDRAWC 11:22
DX: E78.5 Hyperlipidemia, unspecified (principal)
CPT/HCPCS: 84460

== ENCOUNTER 2017-06-24 12:17 | Outpatient (CLI) | payer BC | END 2017-06-26 | LOC: M SLEEP HO 12:17 | DX: G47.30 Sleep apnea, unspecified (principal) | CPT/HCPCS: G0399 ==

== ENCOUNTER → 2017-08-18 | Outpatient (REF) | payer BC ==
[2017-08-19 11:42] LABS: BASO # 0.1 10^3/uL (0.0-0.2); BASO % 1.1 % (0.0-1.0); EOS # 0.1 10^3/uL (0.0-0.50); EOS % 1.7 % (0.0-3.0); HEMATOCRIT 38.1 % (42.0-52.0); HEMOGLOBIN 12.7 g/dl (13.5-17.5); IMMATURE GRANULOCYTE % 0.2 % (0-3.0); LYMPH # 1.2 10^3/uL (1.5-4.5); LYMPH % 22.2 % (24.0-44.0); MEAN CORPUSCULAR HEMOGLOBIN 28.9 pg (27.0-33.0); MEAN CORPUSCULAR HGB CONC 33.3 g/dl (32.0-36.5); MEAN CORPUSCULAR VOLUME 86.8 fl (80.0-96.0); MONO # 0.6 10^3/uL (0.0-0.8); MONO % 11.8 % (0.0-5.0); NEUTROPHILS # 3.4 10^3/uL (1.8-7.7); PLATELET COUNT, AUTOMATED 266 10^3/uL (150-450); RED BLOOD COUNT 4.39 10^6/uL (4.30-6.10); RED CELL DISTRIBUTION WIDTH 13.4 % (11.5-14.5); WHITE BLOOD COUNT 5.4 10^3/uL (4.0-10.0)
[2017-08-19 11:57] LABS: ALBUMIN 4.1 GM/DL (3.2-5.2); ALBUMIN/GLOBULIN RATIO 1.37 (1.00-1.93); ALKALINE PHOSPHATASE 88 U/L (45-117); ALT/SGPT 30 U/L (12-78); ANION GAP 4 MEQ/L (8-16); AST/SGOT 28 U/L (7-37); BILIRUBIN,TOTAL 0.4 MG/DL (0.2-1.0); BLOOD UREA NITROGEN 18 MG/DL (7-18); CALCIUM LEVEL 9.4 MG/DL (8.5-10.1); CARBON DIOXIDE LEVEL 32 MEQ/L (21-32); CHLORIDE LEVEL 107 MEQ/L (98-107); CREATININE FOR GFR 0.81 MG/DL (0.70-1.30); GLOMERULAR FILTRATION RATE > 60.0 (>56); GLUCOSE, FASTING 139 MG/DL (70-100); IRON (FE) 79 UG/DL (65-175); POTASSIUM SERUM 5.1 MEQ/L (3.5-5.1); SODIUM LEVEL 143 MEQ/L (136-145); TOTAL PROTEIN 7.1 GM/DL (6.4-8.2)
[2017-08-19 11:58] LABS: ESTIMATED AVERAGE GLUCOSE 154 MG/DL (60-110)
== END ==
LOC: M SFHCCLAY 14:14
DX: E11.9 Type 2 diabetes mellitus without complications (principal); R63.5 Abnormal weight gain; K28.4 Chronic or unspecified gastrojejunal ulcer with hemorrhage
CPT/HCPCS: 83540

== ENCOUNTER → 2017-11-28 | Outpatient (REF) | payer BC ==
[2017-11-28 11:55] LABS: BASO % 0.6 % (0.0-1.0); EOS # 0.1 10^3/uL (0.0-0.50); EOS % 2.2 % (0.0-3.0); HEMATOCRIT 41.2 % (42.0-52.0); HEMOGLOBIN 13.7 g/dl (13.5-17.5); IMMATURE GRANULOCYTE % 0.2 % (0-3.0); LYMPH # 1.2 10^3/uL (1.5-4.5); LYMPH % 23.3 % (24.0-44.0); MEAN CORPUSCULAR HGB CONC 33.3 g/dl (32.0-36.5); MEAN CORPUSCULAR VOLUME 90.2 fl (80.0-96.0); MONO # 0.5 10^3/uL (0.0-0.8); MONO % 10.5 % (0.0-5.0); NEUTROPHILS # 3.1 10^3/uL (1.8-7.7); NEUTROPHILS % 63.2 % (36.0-66.0); PLATELET COUNT, AUTOMATED 229 10^3/uL (150-450); RED BLOOD COUNT 4.57 10^6/uL (4.30-6.10); RED CELL DISTRIBUTION WIDTH 13.4 % (11.5-14.5); WHITE BLOOD COUNT 4.9 10^3/uL (4.0-10.0)
[2017-11-28 12:11] LABS: HEMATOCRIT 41.2 % (42.0-52.0)
[2017-11-28 12:12] LABS: ESTIMATED AVERAGE GLUCOSE 154 MG/DL (60-110)
[2017-11-28 12:26] LABS: ALBUMIN 3.4 GM/DL (3.2-5.2); ALBUMIN/GLOBULIN RATIO 1.13 (1.00-1.93); ALKALINE PHOSPHATASE 80 U/L (45-117); ALT/SGPT 24 U/L (12-78); ANION GAP 12 MEQ/L (8-16); AST/SGOT 17 U/L (7-37); BILIRUBIN,TOTAL 0.6 MG/DL (0.2-1.0); BLOOD UREA NITROGEN 14 MG/DL (7-18); CALCIUM LEVEL 8.3 MG/DL (8.5-10.1); CARBON DIOXIDE LEVEL 26 MEQ/L (21-32); CHLORIDE LEVEL 105 MEQ/L (98-107); CREATININE FOR GFR 0.79 MG/DL (0.70-1.30); FERRITIN 20 NG/ML (26-388); GLOMERULAR FILTRATION RATE > 60.0 (>56); GLUCOSE, FASTING 217 MG/DL (70-100); IRON (FE) 127 UG/DL (65-175); MAGNESIUM LEVEL 1.8 MG/DL (1.8-2.4); PERCENT SATURATION 36.1 % (19.7-50.0); POTASSIUM SERUM 4.3 MEQ/L (3.5-5.1); SODIUM LEVEL 143 MEQ/L (136-145); TOTAL IRON BINDING CAPACITY 352 UG/DL (250-450); TOTAL PROTEIN 6.4 GM/DL (6.4-8.2)
[2017-11-28 12:31] LABS: TOTAL 25(OH) VITAMIN D 29.1 NG/ML (30.0-100.0)
[2017-11-28 13:54] LABS: PRETREATED FOLATE FOR RBCFOL 23.1 NG/ML; RBC FOLATE 1177.4 NG/ML (280-791)
== END ==
LOC: M LABDRAWC 11:34
DX: K91.2 Postsurgical malabsorption, not elsewhere classified (principal); Z98.84 Bariatric surgery status; E55.9 Vitamin D deficiency, unspecified
CPT/HCPCS: 83550

== ENCOUNTER 2017-12-23 17:12 | Inpatient (IN) | payer BC ==
[2017-12-23] MEDS: GASTROGRAFIN SOLUTION 30ML PO ×4 (17:45→18:58)
[2017-12-23 17:46] LABS: BASO % 0.4 % (0.0-1.0); EOS # 0.1 10^3/uL (0.0-0.50); EOS % 0.8 % (0.0-3.0); HEMATOCRIT 24.1 % (42.0-52.0); HEMOGLOBIN 8.5 g/dl (13.5-17.5); IMMATURE GRANULOCYTE % 0.9 % (0-3.0); LYMPH # 1.7 10^3/uL (1.5-4.5); LYMPH % 21.1 % (24.0-44.0); MEAN CORPUSCULAR HGB CONC 35.3 g/dl (32.0-36.5); MEAN CORPUSCULAR VOLUME 90.6 fl (80.0-96.0); MONO # 0.6 10^3/uL (0.0-0.8); MONO % 6.9 % (0.0-5.0); NEUTROPHILS # 5.6 10^3/uL (1.8-7.7); NEUTROPHILS % 69.9 % (36.0-66.0); PLATELET COUNT, AUTOMATED 272 10^3/uL (150-450); RED BLOOD COUNT 2.66 10^6/uL (4.30-6.10); RED CELL DISTRIBUTION WIDTH 13.3 % (11.5-14.5)
[2017-12-23] MEDS: NS 1,000 ML IV (17:55)
[2017-12-23] MEDS: METOCLOPRAMIDE INJ 10MG/2ML VIAL (J2765) IV (17:56)
[2017-12-23] MEDS: PANTOPRAZOLE 40MG INJ (PROTONIX) (C9113) IV (17:56)
[2017-12-23 18:06] LABS: INR 0.96; PROTHROMBIN TIME 12.9 SECONDS (12.1-14.4)
[2017-12-23 18:14] LABS: ALBUMIN 3.5 GM/DL (3.2-5.2); ALBUMIN/GLOBULIN RATIO 1.21 (1.00-1.93); ALKALINE PHOSPHATASE 77 U/L (45-117); ALT/SGPT 28 U/L (12-78); ANION GAP 10 MEQ/L (8-16); AST/SGOT 19 U/L (7-37); BILIRUBIN,DIRECT < 0.1 MG/DL (0.0-0.2); BILIRUBIN,TOTAL 0.3 MG/DL (0.2-1.0); BLOOD UREA NITROGEN 27 MG/DL (7-18); CALCIUM LEVEL 8.2 MG/DL (8.5-10.1); CARBON DIOXIDE LEVEL 24 MEQ/L (21-32); CHLORIDE LEVEL 102 MEQ/L (98-107); CREATININE FOR GFR 1.09 MG/DL (0.70-1.30); GLOMERULAR FILTRATION RATE > 60.0 (>56); GLUCOSE, FASTING 367 MG/DL (70-100); LIPASE 143 U/L (73-393); POTASSIUM SERUM 4.8 MEQ/L (3.5-5.1); SODIUM LEVEL 136 MEQ/L (136-145); TOTAL PROTEIN 6.4 GM/DL (6.4-8.2)
[2017-12-23] MEDS ORDERED: ISOVUE-370 76% 100ML VIAL (Q9967) As Ordered (19:48)
[2017-12-23] MEDS ORDERED: GLUCOSE 4 GM CHEW TABLET PO (22:30)
[2017-12-23] MEDS ORDERED: GLUCAGON FOR INJ 1 MG VIAL (J1610) SC (22:30)
[2017-12-23] MEDS ORDERED: DEXTROSE 50% 50 ML SYRINGE IV (22:30)
[2017-12-23 22:56] LABS: IMMEDIATE SPIN CROSSMATCH 1 1
[2017-12-24] MEDS: HumaLOG INSULIN (NovoLOG) PER UNIT SC ×4 (00:08→18:02)
[2017-12-24] MEDS: NS 1,000 ML IV ×2 (00:56→13:28)
[2017-12-24 06:44] LABS: BEDSIDE GLUCOSE 135 MG/DL (70-105)
[2017-12-24 08:09] LABS: BASO % 0.5 % (0.0-1.0); EOS # 0.1 10^3/uL (0.0-0.50); HEMATOCRIT 22.8 % (42.0-52.0); HEMOGLOBIN 7.8 g/dl (13.5-17.5); IMMATURE GRANULOCYTE % 0.7 % (0-3.0); LYMPH # 1.7 10^3/uL (1.5-4.5); LYMPH % 28.4 % (24.0-44.0); MEAN CORPUSCULAR HEMOGLOBIN 30.7 pg (27.0-33.0); MEAN CORPUSCULAR HGB CONC 34.2 g/dl (32.0-36.5); MEAN CORPUSCULAR VOLUME 89.8 fl (80.0-96.0); MONO # 0.5 10^3/uL (0.0-0.8); NEUTROPHILS # 3.6 10^3/uL (1.8-7.7); NEUTROPHILS % 60.4 % (36.0-66.0); PLATELET COUNT, AUTOMATED 226 10^3/uL (150-450); RED BLOOD COUNT 2.54 10^6/uL (4.30-6.10); RED CELL DISTRIBUTION WIDTH 13.2 % (11.5-14.5); WHITE BLOOD COUNT 5.9 10^3/uL (4.0-10.0)
[2017-12-24 08:26] LABS: ALBUMIN 3.2 GM/DL (3.2-5.2); ALBUMIN/GLOBULIN RATIO 1.28 (1.00-1.93); ALKALINE PHOSPHATASE 60 U/L (45-117); ALT/SGPT 21 U/L (12-78); ANION GAP 5 MEQ/L (8-16); AST/SGOT 15 U/L (7-37); BILIRUBIN,TOTAL 0.4 MG/DL (0.2-1.0); BLOOD UREA NITROGEN 15 MG/DL (7-18); CALCIUM LEVEL 8.3 MG/DL (8.5-10.1); CARBON DIOXIDE LEVEL 28 MEQ/L (21-32); CHLORIDE LEVEL 108 MEQ/L (98-107); GLOMERULAR FILTRATION RATE > 60.0 (>56); GLUCOSE, FASTING 141 MG/DL (70-100); POTASSIUM SERUM 3.9 MEQ/L (3.5-5.1); SODIUM LEVEL 141 MEQ/L (136-145); TOTAL PROTEIN 5.7 GM/DL (6.4-8.2)
[2017-12-24] MEDS: LEVEMIR (INSULIN DETEMIR) 1 UNITS/0.01ML SC (09:00)
[2017-12-24] MEDS ORDERED: PANTOPRAZOLE 40MG INJ (PROTONIX) (C9113) IV (09:00)
[2017-12-24] MEDS: PANTOPRAZOLE SODIUM 40 MG in D5W 50 ML IV ×3 (09:00→18:48)
[2017-12-24] MEDS ORDERED: LIDOCAINE 2% INJ 100 MG/5 ML SDV (FOR ANES.) As Ordered (10:52)
[2017-12-24] MEDS ORDERED: PROPOFOL 200 MG/20 ML VIAL As Ordered (10:52)
[2017-12-24] MEDS ORDERED: fentaNYL 100 MCG/2 ML INJECTION (J3010) As Ordered (10:53)
[2017-12-24 12:52] LABS: BEDSIDE GLUCOSE 135 MG/DL (70-105)
[2017-12-24] MEDS: VITAMIN B COMPLEX/VIT C CAP PO (13:00)
[2017-12-24] MEDS: ACETAMINOPHEN 650MG ER TAB (TYLENOL ARTHRITIS) PO (13:00)
[2017-12-24] MEDS: VITAMIN D 1,000 INTERNATIONAL UNITS TABLET PO (13:00)
[2017-12-24] MEDS: SUCRALFATE 1 GM TAB PO ×2 (13:03→18:02)
[2017-12-24 13:29] LABS: BEDSIDE GLUCOSE 170 MG/DL (70-105)
[2017-12-24 13:52] LABS: HEMATOCRIT 22.6 % (42.0-52.0); HEMOGLOBIN 7.7 g/dl (13.5-17.5)
[2017-12-24] MEDS: MULTIVITAMINS/MINERALS THERAP 1 TAB PO (14:18)
[2017-12-24 16:59] LABS: BEDSIDE GLUCOSE 144 MG/DL (70-105)
[2017-12-24 17:17] LABS: IMMEDIATE SPIN CROSSMATCH 1 2
[2017-12-24 21:36] LABS: HEMATOCRIT 25.3 % (42.0-52.0); HEMOGLOBIN 8.7 g/dl (13.5-17.5)
[2017-12-24 23:56] LABS: BEDSIDE GLUCOSE 165 MG/DL (70-105)
[2017-12-25] MEDS: HumaLOG INSULIN (NovoLOG) PER UNIT SC ×5 (00:14→23:21)
[2017-12-25] MEDS: PANTOPRAZOLE SODIUM 40 MG in D5W 50 ML IV ×2 (00:14→05:20)
[2017-12-25] MEDS: NS 1,000 ML IV (05:21)
[2017-12-25 05:45] LABS: BEDSIDE GLUCOSE 133 MG/DL (70-105)
[2017-12-25] MEDS: ACETAMINOPHEN 650MG ER TAB (TYLENOL ARTHRITIS) PO (06:17)
[2017-12-25 06:24] LABS: BASO % 0.3 % (0.0-1.0); EOS # 0.1 10^3/uL (0.0-0.50); EOS % 2.1 % (0.0-3.0); HEMATOCRIT 25.8 % (42.0-52.0); HEMOGLOBIN 8.8 g/dl (13.5-17.5); IMMATURE GRANULOCYTE % 0.5 % (0-3.0); LYMPH # 1.4 10^3/uL (1.5-4.5); LYMPH % 23.4 % (24.0-44.0); MEAN CORPUSCULAR HEMOGLOBIN 31.1 pg (27.0-33.0); MEAN CORPUSCULAR HGB CONC 34.1 g/dl (32.0-36.5); MEAN CORPUSCULAR VOLUME 91.2 fl (80.0-96.0); MONO # 0.6 10^3/uL (0.0-0.8); MONO % 9.1 % (0.0-5.0); NEUTROPHILS # 3.9 10^3/uL (1.8-7.7); NEUTROPHILS % 64.6 % (36.0-66.0); PLATELET COUNT, AUTOMATED 208 10^3/uL (150-450); RED BLOOD COUNT 2.83 10^6/uL (4.30-6.10); RED CELL DISTRIBUTION WIDTH 13.6 % (11.5-14.5); WHITE BLOOD COUNT 6.1 10^3/uL (4.0-10.0)
[2017-12-25 06:43] LABS: ALBUMIN 2.9 GM/DL (3.2-5.2); ALBUMIN/GLOBULIN RATIO 1.16 (1.00-1.93); ALKALINE PHOSPHATASE 59 U/L (45-117); ALT/SGPT 18 U/L (12-78); ANION GAP 6 MEQ/L (8-16); AST/SGOT 13 U/L (7-37); BILIRUBIN,TOTAL 0.6 MG/DL (0.2-1.0); BLOOD UREA NITROGEN 8 MG/DL (7-18); CALCIUM LEVEL 8.2 MG/DL (8.5-10.1); CARBON DIOXIDE LEVEL 27 MEQ/L (21-32); CHLORIDE LEVEL 108 MEQ/L (98-107); CREATININE FOR GFR 0.66 MG/DL (0.70-1.30); GLOMERULAR FILTRATION RATE > 60.0 (>56); GLUCOSE, FASTING 142 MG/DL (70-100); MAGNESIUM LEVEL 1.9 MG/DL (1.8-2.4); POTASSIUM SERUM 3.7 MEQ/L (3.5-5.1); SODIUM LEVEL 141 MEQ/L (136-145); TOTAL PROTEIN 5.4 GM/DL (6.4-8.2)
[2017-12-25] MEDS: SUCRALFATE 1 GM TAB PO ×3 (08:00→17:40)
[2017-12-25] MEDS: LEVEMIR (INSULIN DETEMIR) 1 UNITS/0.01ML SC (09:00)
[2017-12-25] MEDS: ASPIRIN 81 MG ENTERIC TAB PO (10:24)
[2017-12-25] MEDS: VITAMIN D 1,000 INTERNATIONAL UNITS TABLET PO (10:25)
[2017-12-25] MEDS: PANTOPRAZOLE 40MG TAB (PROTONIX) PO ×2 (10:25→20:41)
[2017-12-25] MEDS: VITAMIN B COMPLEX/VIT C CAP PO (10:25)
[2017-12-25] MEDS: MULTIVITAMINS/MINERALS THERAP 1 TAB PO (10:25)
[2017-12-25 11:15] LABS: BEDSIDE GLUCOSE 147 MG/DL (70-105)
[2017-12-25 12:39] LABS: HEMATOCRIT 28.5 % (42.0-52.0); HEMOGLOBIN 9.7 g/dl (13.5-17.5)
[2017-12-25 17:14] LABS: BEDSIDE GLUCOSE 174 MG/DL (70-105)
[2017-12-25 18:32] LABS: HEMATOCRIT 28.4 % (42.0-52.0); HEMOGLOBIN 9.7 g/dl (13.5-17.5)
[2017-12-25 23:12] LABS: BEDSIDE GLUCOSE 188 MG/DL (70-105)
[2017-12-25 23:44] LABS: HEMATOCRIT 27.7 % (42.0-52.0); HEMOGLOBIN 9.3 g/dl (13.5-17.5)
[2017-12-26] MEDS: diphenhydrAMINE 25 MG CAP PO (01:43)
[2017-12-26 06:38] LABS: BASO % 0.5 % (0.0-1.0); EOS # 0.2 10^3/uL (0.0-0.50); EOS % 2.6 % (0.0-3.0); HEMATOCRIT 28.4 % (42.0-52.0); HEMOGLOBIN 9.5 g/dl (13.5-17.5); IMMATURE GRANULOCYTE % 0.6 % (0-3.0); LYMPH # 1.7 10^3/uL (1.5-4.5); LYMPH % 25.5 % (24.0-44.0); MEAN CORPUSCULAR HEMOGLOBIN 30.5 pg (27.0-33.0); MEAN CORPUSCULAR HGB CONC 33.5 g/dl (32.0-36.5); MEAN CORPUSCULAR VOLUME 91.3 fl (80.0-96.0); MONO # 0.6 10^3/uL (0.0-0.8); MONO % 9.6 % (0.0-5.0); NEUTROPHILS % 61.2 % (36.0-66.0); PLATELET COUNT, AUTOMATED 240 10^3/uL (150-450); RED BLOOD COUNT 3.11 10^6/uL (4.30-6.10); RED CELL DISTRIBUTION WIDTH 13.5 % (11.5-14.5); WHITE BLOOD COUNT 6.6 10^3/uL (4.0-10.0)
[2017-12-26 07:02] LABS: ALBUMIN 2.9 GM/DL (3.2-5.2); ALKALINE PHOSPHATASE 63 U/L (45-117); ALT/SGPT 21 U/L (12-78); ANION GAP 6 MEQ/L (8-16); AST/SGOT 11 U/L (7-37); BILIRUBIN,TOTAL 0.5 MG/DL (0.2-1.0); BLOOD UREA NITROGEN 12 MG/DL (7-18); CALCIUM LEVEL 8.1 MG/DL (8.5-10.1); CARBON DIOXIDE LEVEL 29 MEQ/L (21-32); CHLORIDE LEVEL 105 MEQ/L (98-107); CREATININE FOR GFR 0.81 MG/DL (0.70-1.30); GLOMERULAR FILTRATION RATE > 60.0 (>56); GLUCOSE, FASTING 185 MG/DL (70-100); POTASSIUM SERUM 3.9 MEQ/L (3.5-5.1); SODIUM LEVEL 140 MEQ/L (136-145); TOTAL PROTEIN 5.8 GM/DL (6.4-8.2)
[2017-12-26] MEDS: VITAMIN B COMPLEX/VIT C CAP PO (08:57)
[2017-12-26] MEDS: MULTIVITAMINS/MINERALS THERAP 1 TAB PO (08:57)
[2017-12-26] MEDS: VITAMIN D 1,000 INTERNATIONAL UNITS TABLET PO (08:57)
[2017-12-26] MEDS: PANTOPRAZOLE 40MG TAB (PROTONIX) PO (08:57)
[2017-12-26] MEDS: ASPIRIN 81 MG ENTERIC TAB PO (08:57)
[2017-12-26] MEDS: SUCRALFATE 1 GM TAB PO (08:57)
[2017-12-26] MEDS: HumaLOG INSULIN (NovoLOG) PER UNIT SC (08:58)
[2017-12-26] MEDS: ACETAMINOPHEN 650MG ER TAB (TYLENOL ARTHRITIS) PO (09:18)
== END 2017-12-26 10:30 | disposition home or self-care (01) | DRG 252 ==
LOC: M ED 17:12 → M ED INP 22:18 → M MSPAV 23:37
PROC: 30233N1 Transfusion of Nonautologous Red Blood Cells into Peripheral Vein, Percutaneous Approach (ICD-10-PCS; principal; 2017-12-24 11:16)
PROC: 0DJ08ZZ Inspection of Upper Intestinal Tract, Via Natural or Artificial Opening Endoscopic (ICD-10-PCS; 2017-12-24 11:16)
DX: K95.89 Other complications of other bariatric procedure (principal); K28.4 Chronic or unspecified gastrojejunal ulcer with hemorrhage; D62 Acute posthemorrhagic anemia; E66.01 Morbid (severe) obesity due to excess calories; I25.10 Atherosclerotic heart disease of native coronary artery without angina pectoris; I10 Essential (primary) hypertension; E11.9 Type 2 diabetes mellitus without complications; Z79.899 Other long term (current) drug therapy; Z79.82 Long term (current) use of aspirin; Z88.8 Allergy status to other drugs, medicaments and biological substances; Z91.013 Allergy to seafood; Z95.2 Presence of prosthetic heart valve; E78.5 Hyperlipidemia, unspecified

== ENCOUNTER → 2018-01-05 | Outpatient (REF) | payer BC ==
[2018-01-06 12:34] LABS: BASO % 0.7 % (0.0-1.0); EOS # 0.1 10^3/uL (0.0-0.50); EOS % 1.8 % (0.0-3.0); HEMATOCRIT 32.3 % (42.0-52.0); HEMOGLOBIN 10.6 g/dl (13.5-17.5); IMMATURE GRANULOCYTE % 0.9 % (0-3.0); LYMPH # 1.4 10^3/uL (1.5-4.5); LYMPH % 24.7 % (24.0-44.0); MEAN CORPUSCULAR HEMOGLOBIN 29.6 pg (27.0-33.0); MEAN CORPUSCULAR HGB CONC 32.8 g/dl (32.0-36.5); MEAN CORPUSCULAR VOLUME 90.2 fl (80.0-96.0); MONO # 0.5 10^3/uL (0.0-0.8); MONO % 9.1 % (0.0-5.0); NEUTROPHILS # 3.5 10^3/uL (1.8-7.7); NEUTROPHILS % 62.8 % (36.0-66.0); PLATELET COUNT, AUTOMATED 350 10^3/uL (150-450); RED BLOOD COUNT 3.58 10^6/uL (4.30-6.10); RED CELL DISTRIBUTION WIDTH 12.5 % (11.5-14.5); WHITE BLOOD COUNT 5.5 10^3/uL (4.0-10.0)
[2018-01-06 13:06] LABS: IRON (FE) 21 UG/DL (65-175)
== END ==
LOC: M SFHCCLAY 14:53
DX: K28.4 Chronic or unspecified gastrojejunal ulcer with hemorrhage (principal); D64.9 Anemia, unspecified
CPT/HCPCS: 83540

== ENCOUNTER 2018-01-15 11:44 | Inpatient (IN) | payer BC ==
[2018-01-15 12:04] LABS: BASO % 0.6 % (0.0-1.0); EOS # 0.1 10^3/uL (0.0-0.50); EOS % 2.1 % (0.0-3.0); HEMATOCRIT 35.5 % (42.0-52.0); HEMOGLOBIN 11.5 g/dl (13.5-17.5); IMMATURE GRANULOCYTE % 0.3 % (0-3.0); LYMPH # 1.3 10^3/uL (1.5-4.5); LYMPH % 20.9 % (24.0-44.0); MEAN CORPUSCULAR HEMOGLOBIN 28.1 pg (27.0-33.0); MEAN CORPUSCULAR HGB CONC 32.4 g/dl (32.0-36.5); MEAN CORPUSCULAR VOLUME 86.8 fl (80.0-96.0); MONO # 0.5 10^3/uL (0.0-0.8); MONO % 8.3 % (0.0-5.0); NEUTROPHILS # 4.3 10^3/uL (1.8-7.7); NEUTROPHILS % 67.8 % (36.0-66.0); PLATELET COUNT, AUTOMATED 296 10^3/uL (150-450); RED BLOOD COUNT 4.09 10^6/uL (4.30-6.10); WHITE BLOOD COUNT 6.3 10^3/uL (4.0-10.0)
[2018-01-15 12:06] LABS: BEDSIDE GLUCOSE 187 MG/DL (70-105)
[2018-01-15] MEDS: hydrALAZINE INJ 20 MG/ML VIAL IV (12:11)
[2018-01-15 12:33] LABS: ANION GAP 6 MEQ/L (8-16); BLOOD UREA NITROGEN 16 MG/DL (7-18); CALCIUM LEVEL 8.8 MG/DL (8.5-10.1); CARBON DIOXIDE LEVEL 30 MEQ/L (21-32); CHLORIDE LEVEL 102 MEQ/L (98-107); CPK CREATINE PHOSPHOKINASE 166 U/L (39-308); CREATININE FOR GFR 0.88 MG/DL (0.70-1.30); GLOMERULAR FILTRATION RATE > 60.0 (>56); GLUCOSE, FASTING 186 MG/DL (70-100); MB/CK RELATIVE INDEX 3.13 (< OR =4); POTASSIUM SERUM 4.2 MEQ/L (3.5-5.1); SODIUM LEVEL 138 MEQ/L (136-145); TROPONIN I < 0.02 NG/ML (< 0.10)
[2018-01-15 12:36] LABS: INR 0.88
[2018-01-15] MEDS: ACETAMINOPHEN TAB 650MG DOSE (2X325MG) PO (13:39)
[2018-01-15] MEDS: amLODIPine 10 MG TAB PO (14:03)
[2018-01-15] MEDS ORDERED: GLUCOSE 4 GM CHEW TABLET PO (14:15)
[2018-01-15] MEDS ORDERED: DEXTROSE 50% 50 ML SYRINGE IV (14:15)
[2018-01-15] MEDS ORDERED: ACETAMINOPHEN 650MG ER TAB (TYLENOL ARTHRITIS) PO (14:15)
[2018-01-15] MEDS ORDERED: GLUCAGON FOR INJ 1 MG VIAL (J1610) SC (14:15)
[2018-01-15 14:16] LABS: CHOLESTEROL LEVEL 245 MG/DL (<200); HDL CHOLESTEROL 70 MG/DL (>40); NON-HDL-C 175 MG/DL; TRIGLYCERIDES LEVEL 405 MG/DL (<150)
[2018-01-15] MEDS: ASPIRIN 81 MG ENTERIC TAB PO (16:59)
[2018-01-15] MEDS ORDERED: SUCRALFATE 1 GM TAB PO (17:00)
[2018-01-15] MEDS: HumaLOG INSULIN (NovoLOG) PER UNIT SC (18:40)
[2018-01-15 18:48] LABS: BEDSIDE GLUCOSE 113 MG/DL (70-105)
[2018-01-15] MEDS: PANTOPRAZOLE 40MG TAB (PROTONIX) PO (20:17)
[2018-01-15] MEDS: SUCRALFATE 1 GM TAB PO (20:17)
[2018-01-15] MEDS: RAMELTEON 8 MG TAB (ROZEREM) PO (23:45)
[2018-01-16 05:35] LABS: HEMATOCRIT 31.8 % (42.0-52.0); HEMOGLOBIN 10.4 g/dl (13.5-17.5); MEAN CORPUSCULAR HEMOGLOBIN 27.9 pg (27.0-33.0); MEAN CORPUSCULAR HGB CONC 32.7 g/dl (32.0-36.5); MEAN CORPUSCULAR VOLUME 85.3 fl (80.0-96.0); PLATELET COUNT, AUTOMATED 254 10^3/uL (150-450); RED BLOOD COUNT 3.73 10^6/uL (4.30-6.10); RED CELL DISTRIBUTION WIDTH 13.1 % (11.5-14.5); WHITE BLOOD COUNT 6.5 10^3/uL (4.0-10.0)
[2018-01-16 05:52] LABS: MAGNESIUM LEVEL 1.9 MG/DL (1.8-2.4)
[2018-01-16 05:54] LABS: ERYTHROCYTE SEDIMENTATION RATE 22 mm/hr (0-20)
[2018-01-16 05:56] LABS: ANION GAP 5 MEQ/L (8-16); BLOOD UREA NITROGEN 13 MG/DL (7-18); C REACTIVE PROTEIN QUANTITATIV < 0.30 MG/DL (0.00-0.30); CALCIUM LEVEL 8.7 MG/DL (8.5-10.1); CARBON DIOXIDE LEVEL 29 MEQ/L (21-32); CHLORIDE LEVEL 106 MEQ/L (98-107); CREATININE FOR GFR 0.72 MG/DL (0.70-1.30); GLOMERULAR FILTRATION RATE > 60.0 (>56); GLUCOSE, FASTING 116 MG/DL (70-100); POTASSIUM SERUM 3.8 MEQ/L (3.5-5.1); SODIUM LEVEL 140 MEQ/L (136-145)
[2018-01-16 05:58] LABS: RHEUMATOID FACTOR QUANT < 10.0 IU/ML (<15.0)
[2018-01-16] MEDS: HumaLOG INSULIN (NovoLOG) PER UNIT SC ×4 (08:35→20:24)
[2018-01-16] MEDS: VITAMIN D 1,000 INTERNATIONAL UNITS TABLET PO (08:36)
[2018-01-16] MEDS: LEVEMIR (INSULIN DETEMIR) 1 UNITS/0.01ML SC (08:36)
[2018-01-16] MEDS: VITAMIN B COMPLEX/VIT C CAP PO (08:36)
[2018-01-16] MEDS: PANTOPRAZOLE 40MG TAB (PROTONIX) PO ×2 (08:36→20:20)
[2018-01-16] MEDS: FERROUS SULFATE 325MG TAB PO (08:36)
[2018-01-16] MEDS: ASPIRIN 81 MG ENTERIC TAB PO (08:36)
[2018-01-16] MEDS: MULTIVITAMINS/MINERALS THERAP 1 TAB PO (08:36)
[2018-01-16] MEDS: SUCRALFATE 1 GM TAB PO ×3 (08:36→17:30)
[2018-01-16] MEDS ORDERED: amLODIPine 10 MG TAB PO ×2 (09:00)
[2018-01-16 11:53] LABS: BEDSIDE GLUCOSE 150 MG/DL (70-105)
[2018-01-16 16:50] LABS: BEDSIDE GLUCOSE 141 MG/DL (70-105)
[2018-01-16] MEDS: hydrALAZINE INJ 20 MG/ML VIAL IV (17:31)
[2018-01-16 20:18] LABS: BEDSIDE GLUCOSE 275 MG/DL (70-105)
[2018-01-16] MEDS: RAMELTEON 8 MG TAB (ROZEREM) PO (20:20)
[2018-01-16] MEDS: FENOFIBRATE 48 MG TAB (TRICOR) PO (20:20)
[2018-01-17] MEDS ORDERED: SLF 3 ML SYR IV (01:45)
[2018-01-17 05:18] LABS: HEMATOCRIT 30.9 % (42.0-52.0); HEMOGLOBIN 9.9 g/dl (13.5-17.5); MEAN CORPUSCULAR HEMOGLOBIN 27.1 pg (27.0-33.0); MEAN CORPUSCULAR VOLUME 84.7 fl (80.0-96.0); PLATELET COUNT, AUTOMATED 244 10^3/uL (150-450); RED BLOOD COUNT 3.65 10^6/uL (4.30-6.10); RED CELL DISTRIBUTION WIDTH 13.1 % (11.5-14.5); WHITE BLOOD COUNT 5.5 10^3/uL (4.0-10.0)
[2018-01-17] MEDS: SLF 3 ML SYR IV ×3 (05:22→21:00)
[2018-01-17 05:44] LABS: ANION GAP 8 MEQ/L (8-16); BLOOD UREA NITROGEN 15 MG/DL (7-18); CALCIUM LEVEL 8.2 MG/DL (8.5-10.1); CARBON DIOXIDE LEVEL 27 MEQ/L (21-32); CHLORIDE LEVEL 106 MEQ/L (98-107); CREATININE FOR GFR 0.75 MG/DL (0.70-1.30); GLOMERULAR FILTRATION RATE > 60.0 (>56); GLUCOSE, FASTING 154 MG/DL (70-100); POTASSIUM SERUM 3.8 MEQ/L (3.5-5.1); SODIUM LEVEL 141 MEQ/L (136-145)
[2018-01-17] MEDS: MULTIVITAMINS/MINERALS THERAP 1 TAB PO (08:17)
[2018-01-17] MEDS: VITAMIN B COMPLEX/VIT C CAP PO (08:17)
[2018-01-17] MEDS: PANTOPRAZOLE 40MG TAB (PROTONIX) PO ×2 (08:17→20:49)
[2018-01-17] MEDS: FERROUS SULFATE 325MG TAB PO (08:17)
[2018-01-17] MEDS: VITAMIN D 1,000 INTERNATIONAL UNITS TABLET PO (08:17)
[2018-01-17] MEDS: SUCRALFATE 1 GM TAB PO ×3 (08:17→18:00)
[2018-01-17] MEDS: LEVEMIR (INSULIN DETEMIR) 1 UNITS/0.01ML SC (08:18)
[2018-01-17] MEDS: ASPIRIN 81 MG ENTERIC TAB PO (08:18)
[2018-01-17] MEDS: HumaLOG INSULIN (NovoLOG) PER UNIT SC ×4 (09:54→20:49)
[2018-01-17 11:42] LABS: BEDSIDE GLUCOSE 169 MG/DL (70-105)
[2018-01-17 18:04] LABS: BEDSIDE GLUCOSE 134 MG/DL (70-105)
[2018-01-17 20:39] LABS: BEDSIDE GLUCOSE 193 MG/DL (70-105)
[2018-01-17] MEDS: RAMELTEON 8 MG TAB (ROZEREM) PO (20:48)
[2018-01-17] MEDS: FENOFIBRATE 48 MG TAB (TRICOR) PO (20:49)
[2018-01-18 04:59] LABS: MEAN CORPUSCULAR HEMOGLOBIN 27.4 pg (27.0-33.0); MEAN CORPUSCULAR HGB CONC 32.3 g/dl (32.0-36.5); MEAN CORPUSCULAR VOLUME 84.9 fl (80.0-96.0); PLATELET COUNT, AUTOMATED 256 10^3/uL (150-450); RED BLOOD COUNT 3.65 10^6/uL (4.30-6.10); RED CELL DISTRIBUTION WIDTH 13.1 % (11.5-14.5); WHITE BLOOD COUNT 7.4 10^3/uL (4.0-10.0)
[2018-01-18 05:17] LABS: ANION GAP 5 MEQ/L (8-16); BLOOD UREA NITROGEN 14 MG/DL (7-18); CALCIUM LEVEL 8.8 MG/DL (8.5-10.1); CARBON DIOXIDE LEVEL 30 MEQ/L (21-32); CHLORIDE LEVEL 106 MEQ/L (98-107); CREATININE FOR GFR 0.75 MG/DL (0.70-1.30); GLOMERULAR FILTRATION RATE > 60.0 (>56); GLUCOSE, FASTING 117 MG/DL (70-100); POTASSIUM SERUM 3.8 MEQ/L (3.5-5.1); SODIUM LEVEL 141 MEQ/L (136-145)
[2018-01-18] MEDS: SLF 3 ML SYR IV (05:24)
[2018-01-18] MEDS: HumaLOG INSULIN (NovoLOG) PER UNIT SC ×2 (07:30→12:00)
[2018-01-18] MEDS: PANTOPRAZOLE 40MG TAB (PROTONIX) PO (08:18)
[2018-01-18] MEDS: MULTIVITAMINS/MINERALS THERAP 1 TAB PO (08:18)
[2018-01-18] MEDS: VITAMIN B COMPLEX/VIT C CAP PO (08:18)
[2018-01-18] MEDS: VITAMIN D 1,000 INTERNATIONAL UNITS TABLET PO (08:18)
[2018-01-18] MEDS: amLODIPine 5 MG TAB PO (08:18)
[2018-01-18] MEDS: LEVEMIR (INSULIN DETEMIR) 1 UNITS/0.01ML SC (08:18)
[2018-01-18] MEDS: FERROUS SULFATE 325MG TAB PO (08:18)
[2018-01-18] MEDS: ASPIRIN 81 MG ENTERIC TAB PO (08:18)
[2018-01-18] MEDS: SUCRALFATE 1 GM TAB PO ×2 (08:18→12:08)
== END 2018-01-18 12:42 | disposition home or self-care (01) | DRG 45 ==
LOC: M ED 11:44 → M ED INP 13:57 → M MSPAV 16:08 → M PCU 17:04
DX: I63.9 Cerebral infarction, unspecified (principal); K27.9 Peptic ulcer, site unspecified, unspecified as acute or chronic, without hemorrhage or perforation; I25.10 Atherosclerotic heart disease of native coronary artery without angina pectoris; I10 Essential (primary) hypertension; E11.9 Type 2 diabetes mellitus without complications; E78.5 Hyperlipidemia, unspecified; Z91.14 Patient's other noncompliance with medication regimen; Z88.8 Allergy status to other drugs, medicaments and biological substances; Z91.013 Allergy to seafood; Z79.82 Long term (current) use of aspirin; Z79.899 Other long term (current) drug therapy; I16.0 Hypertensive urgency

== ENCOUNTER → 2018-03-02 | Outpatient (REF) | payer BC ==
[~2018-03-02] MED LIST: AMLO10TA5 PO; AMLO5TAB6 PO; ASPI325T PO; ASPI81TA24 PO; ASPI81TAEC PO; FENO48TA2 PO; FERR1TAB8 PO; HYDR12.55 PO; HYDR25TAB PO; INSULANT SC; MULT1TAB10 PO; PANT40TA3 PO; PLAV1TAB2 PO; PROT1TAB2 PO; SUCR1TA PO; SUCR1TAB56 PO; TYLE1TAB5 PO; TYLE650T35 PO; VALS1TAB46 PO; VALS1TAB49 PO; VITA100066 PO; VITATAB11 PO; VITMTA PO
[2018-03-02 11:23] LABS: BASO # 0.1 10^3/uL (0.0-0.2); BASO % 0.7 % (0.0-1.0); EOS # 0.2 10^3/uL (0.0-0.50); EOS % 3.3 % (0.0-3.0); HEMATOCRIT 32.5 % (42.0-52.0); HEMOGLOBIN 10.2 g/dl (13.5-17.5); LYMPH % 15.1 % (24.0-44.0); MEAN CORPUSCULAR HEMOGLOBIN 25.2 pg (27.0-33.0); MEAN CORPUSCULAR HGB CONC 31.4 g/dl (32.0-36.5); MEAN CORPUSCULAR VOLUME 80.2 fl (80.0-96.0); MONO # 0.6 10^3/uL (0.0-0.8); MONO % 8.1 % (0.0-5.0); NEUTROPHILS % 72.4 % (36.0-66.0); PLATELET COUNT, AUTOMATED 495 10^3/uL (150-450); RED BLOOD COUNT 4.05 10^6/uL (4.30-6.10); WHITE BLOOD COUNT 6.9 10^3/uL (4.0-10.0)
[2018-03-02 11:26] LABS: BLOOD UREA NITROGEN 15 MG/DL (7-18); CALCIUM LEVEL 9.3 MG/DL (8.5-10.1); CARBON DIOXIDE LEVEL 29 MEQ/L (21-32); CHLORIDE LEVEL 99 MEQ/L (98-107); CREATININE FOR GFR 0.91 MG/DL (0.70-1.30); GLOMERULAR FILTRATION RATE > 60.0 (>56); GLUCOSE, FASTING 314 MG/DL (70-100); POTASSIUM SERUM 4.4 MEQ/L (3.5-5.1); SODIUM LEVEL 135 MEQ/L (136-145)
== END ==
LOC: M SFHCCLAY 08:43
PROVIDERS: ATTEND Family Medicine
DX: D64.9 Anemia, unspecified (principal); I10 Essential (primary) hypertension

== ENCOUNTER → 2018-06-24 | Outpatient (REF) ==
[~2018-06-24] MED LIST changes: +ASPI-1 PO; -ASPI325T PO; -VALS1TAB46 PO; +VALS1TAB66 PO
--- NOTE | 2018-06-25 01:44 | REP ---
The clinical: Right hip pain. Technique: Neutral and frog lateral views of the right hip. Findings: Early advanced osteoarthritic degenerative changes include subchondral heterogeneity with cystic changes, joint space narrowing and bulky marginal osteophytosis. No obvious acute fracture or dislocation. Impression: Early advanced osteoarthritic degenerative changes. Electronically Signed by Marquise Zavala MD 06/25/2018 01:36 A
== END ==
LOC: M SMT 14:58
PROVIDERS: ATTEND Internal Medicine
DX: Z02.71 Encounter for disability determination (principal)

== ENCOUNTER → 2018-07-28 | Outpatient (REF) | payer BC ==
[2018-07-28 12:00] LABS: BASO % 0.5 % (0.0-1.0); EOS # 0.1 10^3/uL (0.0-0.50); EOS % 0.7 % (0.0-3.0); HEMATOCRIT 42.9 % (42.0-52.0); HEMOGLOBIN 14.4 g/dl (13.5-17.5); LYMPH # 1.3 10^3/uL (1.5-4.5); LYMPH % 16.1 % (24.0-44.0); MEAN CORPUSCULAR HEMOGLOBIN 28.7 pg (27.0-33.0); MEAN CORPUSCULAR HGB CONC 33.6 g/dl (32.0-36.5); MEAN CORPUSCULAR VOLUME 85.5 fl (80.0-96.0); MONO # 0.8 10^3/uL (0.0-0.8); MONO % 9.6 % (0.0-5.0); NEUTROPHILS # 5.9 10^3/uL (1.8-7.7); NEUTROPHILS % 72.7 % (36.0-66.0); PLATELET COUNT, AUTOMATED 252 10^3/uL (150-450); RED BLOOD COUNT 5.02 10^6/uL (4.30-6.10); WHITE BLOOD COUNT 8.1 10^3/uL (4.0-10.0)
[2018-07-28 12:22] LABS: ALBUMIN 3.7 GM/DL (3.2-5.2); ALT/SGPT 21 U/L (12-78); BILIRUBIN,TOTAL 0.6 MG/DL (0.2-1.0); BLOOD UREA NITROGEN 14 MG/DL (7-18); CALCIUM LEVEL 9.5 MG/DL (8.5-10.1); CARBON DIOXIDE LEVEL 28 MEQ/L (21-32); CHLORIDE LEVEL 104 MEQ/L (98-107); CHOLESTEROL LEVEL 117 MG/DL (<200); GLOMERULAR FILTRATION RATE > 60.0 (>56); GLUCOSE, FASTING 285 MG/DL (70-100); HDL CHOLESTEROL 65 MG/DL (>40); IRON (FE) 284 UG/DL (65-175); LDL CHOLESTEROL 16 MG/DL (<100); NON-HDL-C 52 MG/DL; POTASSIUM SERUM 4.2 MEQ/L (3.5-5.1); SODIUM LEVEL 139 MEQ/L (136-145); TOTAL PROTEIN 7.5 GM/DL (6.4-8.2); TRIGLYCERIDES LEVEL 182 MG/DL (<150)
[2018-07-28 12:45] LABS: HEMOGLOBIN A1c 8.6 %
== END ==
LOC: M SFHCCLAY 08:19
PROVIDERS: ATTEND Family Medicine
DX: E11.9 Type 2 diabetes mellitus without complications (principal); I25.10 Atherosclerotic heart disease of native coronary artery without angina pectoris; D64.9 Anemia, unspecified

== ENCOUNTER 2018-09-14 06:47 | Inpatient (IN) | payer BC ==
--- NOTE | 2018-09-09 12:58 | HPE ---
DATE OF ADMISSION: 09/14/2018 CHIEF COMPLAINT: Right hip pain. HISTORY OF PRESENT ILLNESS: This is pleasant 57-year-old male with progressively worsening right hip pain and stiffness. He has failed to improve with conservative treatment. He has elected for surgery for his continued symptoms. He has pain with weightbearing activities and activities of daily living. X-rays of his hip are notable for advanced osteoarthritis of the right hip joint. He has consented for a right total hip arthroplasty by Dr. Socrates Villegas. Medical optimization was performed by Dr. Negro. ALLERGIES: BETA-BLOCKERS, BLANE INHIBITORS, STATINS and CALCIUM CHANNEL BLOCKERS. CURRENT MEDICATIONS: - amlodipine - baby aspirin - multivitamin - Lantus -Tylenol PM PAST MEDICAL HISTORY INCLUDES: Diabetes. Hypertension. History of stroke. History of myocardial infarction. PAST SURGICAL HISTORY: Carpal tunnel bilateral. Gastric bypass. 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 Family history is noncontributory. REVIEW OF SYSTEMS: This patient denies chest pain, heart palpitations, cough, wheezing, difficulty breathing and shortness of breath. He denies abdominal pain, nausea, vomiting, diarrhea or constipation. He denies recent upper respiratory infection or urinary tract infection symptoms. He does complain of persistent pain in the right hip and pain with weightbearing activities of the right hip. PHYSICAL EXAMINATION: GENERAL: He is a well-nourished, well-developed in no acute distress, alert male patient. He ambulates with a significant limp favoring his right lower extremity. He is not using assistive devices. VITAL SIGNS: He is 71.75 inches tall, weighs 246 pounds with a temperature of 97, blood pressure 152/80, pulse of 62, respirations 18. Neck was supple without adenopathy or jugular venous distension. No carotid bruits appreciated upon auscultation. LUNGS: Clear to auscultation without rales or wheeze throughout. HEART: Regular rate and rhythm. ABDOMEN: Bowel sounds were present. EXTREMITIES: Examination of the hip revealed intact skin. The patient had markedly painful and decreased range of motion on exam. The limb was neurovascularly intact. LABORATORY DATA: EKG showed history of inferior TX and sinus rhythm at 63 beats per minute. Chest x-ray showed no acute cardiopulmonary disease processes. ProTime 12.9, INR 1.00, glucose 140, BUN 19, creatinine 0.86. Sodium 142, potassium 3.9. CBC was within normal limits. Sed rate was 6. IMPRESSION: Symptomatic osteoarthritis of the right hip. PLAN: Consented for a right total hip arthroplasty by Dr. Socrates Villegas.
[~2018-09-14] VITALS: Ht 188 cm; Wt 112.5 kg
[~2018-09-14 06:47] MED LIST changes: +ACETAMINOPHEN 500 MG TAB PO ONE; +ATOR1TAB19 PO; +BRIL90TA PO; +COLC1TAB13 PO; +INSUHUMDS SC; +LOSA100T50 PO; +LR 1,000 ML IV ONE; +REPA1INJ SC
[2018-09-14] MEDS ORDERED: ceFAZolin 1GM INJ (J0690 PER 500MG) As Ordered ONE (09:39)
[2018-09-14] MEDS ORDERED: LIDOCAINE 2% INJ 100 MG/5 ML SDV (FOR ANES.) As Ordered ONE (10:37)
[2018-09-14] MEDS ORDERED: MIDAZOLAM INJ 2 MG/2 ML VIAL (J2250) As Ordered ONE (10:37)
[2018-09-14] MEDS ORDERED: fentaNYL 100 MCG/2 ML INJECTION (J3010) As Ordered ONE ×2 (10:37→13:46)
[2018-09-14] MEDS ORDERED: PROPOFOL 200 MG/20 ML VIAL As Ordered ONE ×2 (10:37→11:18)
[2018-09-14] MEDS ORDERED: ePHEDrine SULFATE 25 MG/5 ML(5MG/ML) SYRINGE As Ordered ONE ×2 (10:45→11:36)
[2018-09-14] MEDS ORDERED: ACETAMINOPHEN 1000MG 100ML IV BTL (OFIRMEV) (J0131 PER 10MG) As Ordered ONE (11:02)
[2018-09-14] MEDS ORDERED: PERCOCET 5MG/325MG TAB PO PRN ×2 (12:45→15:15)
[2018-09-14] MEDS ORDERED: METOCLOPRAMIDE INJ 10MG/2ML VIAL (J2765) IV PRN (12:45)
[2018-09-14] MEDS ORDERED: fentaNYL 100 MCG/2 ML INJECTION (J3010) IV PRN (12:45)
[2018-09-14] MEDS ORDERED: ONDANSETRON 4MG/2ML VIAL (J2405) IV PRN ×2 (12:45→15:15)
[2018-09-14] MEDS ORDERED: LR 1,000 ML IV SCH (12:45)
--- NOTE | 2018-09-14 13:00 | RO ---
DATE OF PROCEDURE: 09/14/2018 PREOPERATIVE DIAGNOSIS: Right hip degenerative arthritis. POSTOPERATIVE DIAGNOSIS: Right hip degenerative arthritis. PROCEDURE: Right total hip arthroplasty using a size 7 [place] stem standard offset with a +8.5 neck and a 40 mm ceramic head with a 60 mm Gription cup and a 40 mm neutral liner polyethylene. The prosthesis was made by [employer]. SURGEON: Karely Villegas MD LEAN ENGINEER: Ms. Sydney Salmeron ANESTHESIA: Spinal. COMPLICATIONS: None. ESTIMATED BLOOD LOSS: 200 mL. SPECIMENS: Femoral head. DESCRIPTION OF PROCEDURE: Antibiotics were given intravenously preoperatively, and then a successful spinal anesthetic was induced. Then, he was placed in a lateral decubitus position with the right hip uppermost. Down leg well padded, especially the perineal nerve, and an axillary roll was utilized. His right hip area was then carefully prepped and draped in the usual sterile fashion. After appropriate time-out, a longitudinal incision was made for a direct lateral approach to the hip. Bovie cautery was used to coagulate crossing vessels down to the tensor fascia, which was then divided in line with the skin incision. Then, we split the gluteus medius anterior one-third and posterior two-third junction down through the gluteus minimus and anterior hip capsule, carefully dissecting off the anterior part of the proximal femur, as we actually rotated and then eventually dislocated the hip anteriorly. A starter reamer was placed at the pyriformis fossa, followed by the canal-finding reamer, then the lateralizing reamer. Then, we reamed up to a size 7. A femoral neck osteotomy performed, and we broached up to a size 7. Calcar planer utilized. We then exposed the acetabulum, performed a labral excision 360 degrees. Then, we began reaming with a setting at 50 mm, advancing by 1 mm increments to 59, and then the trial 60 fit nicely. Using extramedullary guide to set our version and abduction. There was a large cyst superior and anteriorly which was debrided with a curette and filled with bone graft. After copious irrigation, we inserted the real cup. It fit nicely. The central hole eliminator was placed, followed by the polyethylene. We then exposed the proximal femur, irrigated out thoroughly, and then placed the trial 7 broach, followed by the standard offset head and neck combination at 40 mm starting at first 1.5 neck length. He had excellent stability of flexion internal rotation and extension external rotation. However, there was quite a bit of soft tissue telescoping. I then trialed with a +5 and then eventually settled on the 8.5 neck length. That gave us the appropriate soft tissue tension with minimal telescoping. We removed the trial components and copiously pulsatile lavage irrigated out the femoral canal and then placed the real #7 [place] stem, and then dried the trunnion, placed the 40 mm ceramic ball, and then reduced the hip after copiously irrigating. We then irrigated once again and the closed the hip capsule and the gluteus minimus back anatomically with interrupted #1 polydioxanone suture (PDS) sutures. The gluteus medius was closed back with interrupted #1 PDS sutures, irrigating between layers, and then closed the tensor fascia with a combination of #1 PDS suture and a running #1 Stratafix. We copiously irrigated again, then closed the deep subdermal tissues with interrupted 2-0 PDS sutures. The skin was closed with rosalind, covered by an Optifoam dry sterile bulky dressing. He was then turned supine and then transferred to the recovery room in stable condition. There were no intraoperative complications. Ms. Sydney Salmeron was critical to the success of this very difficult surgery given the size of his leg and the size of the patient by helping with appropriate soft tissue retraction, helped to reduce and dislocate the hip many times throughout the surgery, helped to close the wound, helped to prepare the patient otherwise, amongst many other tasks to allow me to perform the operation smoothly, efficiently, and safely.
[2018-09-14] MEDS ORDERED: HYDROMORPHONE HCL 0.5 MG/ 0.5 ML SYRINGE (J1170 PER 1) As Ordered ONE (13:25)
[2018-09-14] MEDS ORDERED: ACETAMINOPHEN TAB 650MG DOSE (2X325MG) PO PRN (13:30)
[2018-09-14] MEDS ORDERED: FLEET ENEMA PR PRN (13:30)
[2018-09-14] MEDS: HYDROMORPHONE HCL 0.5 MG/ 0.5 ML SYRINGE (J1170 PER 1) IV PRN ×3 (13:33→21:16)
--- NOTE | 2018-09-14 14:39 | REP ---
AP AND LATERAL RIGHT HIP: HISTORY: Hip replacement. COMPARISON: 06/24/2018. The patient is status post right total hip replacement. There is no acute fracture or dislocation. Subcutaneous air is present in the overlying soft tissue. IMPRESSION: The patient is status post right total hip replacement. There is anatomic alignment. Electronically Signed by Basilio Lewis MD 09/14/2018 03:13 P
[2018-09-14] MEDS ORDERED: ONDANSETRON 4 MG TAB (S0181) PO PRN (15:15)
[2018-09-14 15:17] VITALS: BP 139/81
--- NOTE | 2018-09-14 15:44 | CR.PDOC ---
General Date of Consultation: Sep 14, 2018 Consultation REASON FOR CONSULTATION/CHIEF COMPLAINT: Hypertension, diabetes, CVA HISTORY OF PRESENT ILLNESS: 57-year-old male with past medical history of recent CVA with residual fine motor skill issues and balancing issues, upper GI bleed, hypertension, diabetes, gastric bypass surgery in 2016 admitted under orthopedics for right hip total arthroplasty. Medicine was consulted for medical problems. Patient states that he takes amlodipine and Lantus and usually his blood pressure and diabetes is well-controlled. At the time of my examination patient has no complaints. Denies any chest pain, shortness of breath, nausea, vomiting. ALLERGIES: Please see below. HOME MEDICATIONS: Please see below. PAST MEDICAL HISTORY: See above PAST SURGICAL HISTORY: See above FAMILY HISTORY: Reviewed and currently noncontributory to current hospitalization SOCIAL HISTORY: Denies smoking, occasional alcohol use. Denies recreational drug use. REVIEW OF SYSTEMS: denies chest pain, heart palpitations, cough, wheezing, difficulty breathing and shortness of breath. He denies abdominal pain, nausea, vomiting, diarrhea or constipation. He denies recent upper respiratory infection or urinary tract infection symptoms. PHYSICAL EXAMINATION: VITAL SIGNS: Reviewed GENERAL APPEARANCE: Morbidly, no acute distress. RESPIRATORY: CTABL, CARDIOVASCULAR: S1-S2 no murmurs rubs or gallops ABDOMEN: Soft nontender EXTREMITIES: No edema, distal pulses 2+ NEUROLOGICAL: In O 3, cranial nerves II-12 intact, sensation and motor motor intact LABORATORY DATA: Please see below. ASSESSMENT/PLAN: #HTN -cont amlodipine #DM -cont lantus -ISS added #H/O CVA -not on ASA or statin -will start ASA, statin DVT PPX- per ortho. Thank you for this consult. Medicine will continue to follow. Vital Signs/I&O Vital Signs Date Time Temp Pulse Resp B/P (MAP) Pulse Ox O2 Delivery O2 Flow Rate FiO2 09/14/18 13:51 97 60 18 144/88 (106) 97 Laboratory Data Labs 24H Laboratory Tests 2 09/14/18 12:24: Bedside Glucose (Misc Panel) 109H CBC/BMP Laboratory Tests 09/14/18 06:57 Allergies Coded Allergies: BLANE Inhibitors (Verified Allergy, Unknown, 09/14/18) Beta-Blockers (Beta-Adrenergic Bloc (Verified Allergy, Unknown, 08/21/18) Jisqqmh-Uht-Wyd Reductase Inhibitor (Verified Allergy, Unknown, 09/14/18) shellfish derived (Verified Allergy, Unknown, 09/14/18) Home Medications Scheduled Amlodipine Besylate (Amlodipine Besylate) 10 Mg Tablet, 10 MG PO DAILY for 30 Days, #30 (Reported) Cholecalciferol (Vitamin D3) (Vitamin D3) 1,000 Unit Tab, 1,000 UNIT PO DAILY, (Reported) Evolocumab (Repatha Sureclick) 140 Mg/1 Ml Pen.injctr, 1 SYRINGE SC Q2WK for 30 Days, #2 (Reported) Insulin Glargine (Lantus) 1 Units/0.01 Ml Susp, 60 UNITS SC DAILY, (Reported) Multivitamins (Thera M Plus Tablet) 1 Tab Tab, 1 TAB PO DAILY, (Reported) Scheduled PRN Insulin Human Lispro (Humalog) 100 Unit/1 Ml Vial, 1 UNITS SC AMHS PRN for PER FS, (Reported) ALLI CUBA MD Sep 14, 2018 15:44
[2018-09-14] MEDS ORDERED: GLUCAGON FOR INJ 1 MG VIAL (J1610) SC PRN (15:45)
[2018-09-14] MEDS ORDERED: DEXTROSE 50% 50 ML SYRINGE IV PRN (15:45)
[2018-09-14] MEDS ORDERED: GLUCOSE 4 GM CHEW TABLET PO PRN (15:45)
[2018-09-14] MEDS: PERCOCET 5MG/325MG TAB PO PRN (16:17)
[2018-09-14 16:44] VITALS: BP 147/85
[2018-09-14] MEDS: HumaLOG INSULIN (NovoLOG) PER UNIT SC SCH (17:26)
[2018-09-14 17:43] VITALS: BP 144/92
[2018-09-14 18:48] VITALS: BP 143/90
[2018-09-14] MEDS: MORPHINE 15 MG SA TAB PO SCH (19:06)
[2018-09-14] MEDS: CYCLOBENZAPRINE 10 MG TAB PO PRN (19:13)
[2018-09-14 19:30] VITALS: BP 144/88
[2018-09-14 22:00] VITALS: BP 166/91
[2018-09-15] MEDS: PERCOCET 5MG/325MG TAB PO PRN ×3 (01:16→17:36)
[2018-09-15 02:00] VITALS: BP 143/72
[2018-09-15] MEDS: HYDROMORPHONE HCL 0.5 MG/ 0.5 ML SYRINGE (J1170 PER 1) IV PRN (03:22)
[2018-09-15 06:00] VITALS: BP 156/86
[2018-09-15 06:54] LABS: HEMATOCRIT 36.9 % (42.0-52.0); HEMOGLOBIN 12.1 g/dl (13.5-17.5); MEAN CORPUSCULAR HEMOGLOBIN 29.7 pg (27.0-33.0); MEAN CORPUSCULAR HGB CONC 32.8 g/dl (32.0-36.5); MEAN CORPUSCULAR VOLUME 90.4 fl (80.0-96.0); PLATELET COUNT, AUTOMATED 209 10^3/uL (150-450); RED BLOOD COUNT 4.08 10^6/uL (4.30-6.10)
[2018-09-15 07:22] LABS: BLOOD UREA NITROGEN 11 MG/DL (7-18); CALCIUM LEVEL 8.3 MG/DL (8.5-10.1); CARBON DIOXIDE LEVEL 30 MEQ/L (21-32); CHLORIDE LEVEL 103 MEQ/L (98-107); CREATININE FOR GFR 0.88 MG/DL (0.70-1.30); GLOMERULAR FILTRATION RATE > 60.0 (>56); GLUCOSE, FASTING 186 MG/DL (70-100); POTASSIUM SERUM 4.2 MEQ/L (3.5-5.1); SODIUM LEVEL 138 MEQ/L (136-145)
[2018-09-15] MEDS ORDERED: PERC5TAB12 PO (07:54)
[2018-09-15] MEDS ORDERED: CYCL10TA PO (07:54)
[2018-09-15] MEDS ORDERED: XARE10TA PO (07:54)
[2018-09-15] MEDS: LEVEMIR (INSULIN DETEMIR) 1 UNITS/0.01ML SC SCH (08:05)
[2018-09-15] MEDS: HumaLOG INSULIN (NovoLOG) PER UNIT SC SCH ×3 (08:05→17:36)
[2018-09-15] MEDS: MOM 30ML SUSPENSION UDC PO SCH (08:05)
[2018-09-15] MEDS: CYCLOBENZAPRINE 10 MG TAB PO PRN (08:06)
[2018-09-15] MEDS: MORPHINE 15 MG SA TAB PO SCH ×2 (08:06→19:52)
[2018-09-15] MEDS: MULTIVITAMINS/MINERALS THERAP 1 TAB PO SCH (08:06)
[2018-09-15] MEDS: ATORVASTATIN 20 MG TAB PO SCH (08:06)
[2018-09-15] MEDS: amLODIPine 10 MG TAB PO SCH (08:06)
[2018-09-15] MEDS: MIRALAX *UNIT DOSE* 17GM PACKET PO SCH (08:07)
[2018-09-15] MEDS ORDERED: ASPIRIN 81 MG CHEW TABLET PO SCH (09:00)
[2018-09-15] MEDS ORDERED: ASPIRIN 81 MG ENTERIC TAB PO SCH (09:00)
[2018-09-15 10:06] VITALS: BP 132/75
[2018-09-15 14:38] VITALS: BP 135/76
[2018-09-15] MEDS: RIVAROXABAN 10 MG TAB (XARELTO) PO SCH (17:35)
--- NOTE | 2018-09-15 17:36 | IPNPDOC ---
Text Note Date of Service The patient was seen on 09/15/18. NOTE Mr. Fernández postop day #1 from Right total hip arthroplasty. He has been only moderately ambulatory. He reports his lowest pain scale score is about a 3. He feels he is having significant muscle spasm. See vital signs below. Physical exam: HEENT: Neck is supple with no adenopathy or thyromegaly. He does not have scleral injection. Oral mucosa is moist. Cardiovascular: Regular rate and rhythm with a normal S1 and S2 and no appreciable murmur or bruit. Respiratory: Clear to auscultation with no rhonchi, rales, wheezes or cough. Abdominal: Soft, nondistended, moderate central obesity, nontender to palpation. Extremities: Pedal pulses are palpable, no pedal edema, operative hip site is intact. Neuro: No focal neuromotor deficit; mobility is limited by pain Assessment/plan: #1. Right hip total arthroplasty. The patient is doing well postoperatively. He has reasonable pain control with oral medications. He has remained hemodynamically stable. He is mobilizing where possible. DVT prophylaxis is with Xarelto. Anticipate patient will be able to transition to home within 24-48 hours. #2. NIDDM. Patient exhibits good glucose control. He's been continued on his Lantus along with sliding scale insulin. #3. Hypertension. Blood pressure continues under good control with systolic blood pressures ranging 132-135 on his usual home medication regimen. VS,Fishbone, I+O VS, Fishbone, I+O Laboratory Tests 09/15/18 06:33 Red Blood Count 4.08 L, Mean Corpuscular Volume 90.4, Mean Corpuscular Hemoglobin 29.7, Mean Corpuscular Hemoglobin Concent 32.8, Red Cell Distribution Width 13.1, Calcium Level 8.3 L Vital Signs Date Time Temp Pulse Resp B/P (MAP) Pulse Ox O2 Delivery O2 Flow Rate FiO2 09/15/18 14:38 98.8 82 18 135/76 (95) 96 I&O- Last 24 Hours up to 6 AM 09/15/18 06:00 Intake Total 1990 ml Output Total 600 ml Balance 1390 ml JUAN FRANCISCO MIRZA MD Sep 15, 2018 17:36
[2018-09-15 18:38] VITALS: BP 133/77
[2018-09-15 22:00] VITALS: BP 139/77
[2018-09-16] MEDS: PERCOCET 5MG/325MG TAB PO PRN ×3 (00:58→19:30)
[2018-09-16 06:00] VITALS: BP 152/79
[2018-09-16 06:25] LABS: HEMATOCRIT 34.4 % (42.0-52.0); HEMOGLOBIN 11.2 g/dl (13.5-17.5); MEAN CORPUSCULAR HEMOGLOBIN 29.2 pg (27.0-33.0); MEAN CORPUSCULAR HGB CONC 32.6 g/dl (32.0-36.5); MEAN CORPUSCULAR VOLUME 89.8 fl (80.0-96.0); PLATELET COUNT, AUTOMATED 188 10^3/uL (150-450); RED BLOOD COUNT 3.83 10^6/uL (4.30-6.10); WHITE BLOOD COUNT 6.1 10^3/uL (4.0-10.0)
[2018-09-16 06:50] LABS: BLOOD UREA NITROGEN 11 MG/DL (7-18); CALCIUM LEVEL 8.7 MG/DL (8.5-10.1); CARBON DIOXIDE LEVEL 33 MEQ/L (21-32); CHLORIDE LEVEL 103 MEQ/L (98-107); CREATININE FOR GFR 0.82 MG/DL (0.70-1.30); GLOMERULAR FILTRATION RATE > 60.0 (>56); GLUCOSE, FASTING 167 MG/DL (70-100); POTASSIUM SERUM 4.2 MEQ/L (3.5-5.1); SODIUM LEVEL 139 MEQ/L (136-145)
[2018-09-16] MEDS ORDERED: XARE10TA PO (07:18)
[2018-09-16] MEDS: MIRALAX *UNIT DOSE* 17GM PACKET PO SCH (08:24)
[2018-09-16] MEDS: MOM 30ML SUSPENSION UDC PO SCH (08:24)
[2018-09-16] MEDS: HumaLOG INSULIN (NovoLOG) PER UNIT SC SCH ×3 (08:24→18:51)
[2018-09-16] MEDS: amLODIPine 10 MG TAB PO SCH (08:25)
[2018-09-16] MEDS: MORPHINE 15 MG SA TAB PO SCH ×2 (08:25→20:11)
[2018-09-16] MEDS: MULTIVITAMINS/MINERALS THERAP 1 TAB PO SCH (08:26)
[2018-09-16] MEDS: LEVEMIR (INSULIN DETEMIR) 1 UNITS/0.01ML SC SCH (08:27)
[2018-09-16] MEDS: ATORVASTATIN 20 MG TAB PO SCH (08:27)
--- NOTE | 2018-09-16 14:00 | IPNPDOC ---
Text Note Date of Service The patient was seen on 09/16/18. NOTE The patient continues to complain of pain and muscle cramps. He is postoperative day #2 from right total hip arthroplasty. He is attributing his discomfort to receiving statin during this hospital stay, to which he has had adverse reaction in the past. PHYSICAL EXAM: HENT: Neck is supple with no adenopathy or thyromegaly, oral mucosa is moist. Cardiovascular exam: shows a regular rate and rhythm with a normal S1 and S2 and no appreciable murmur or bruit Respiratory: Clear to auscultation with no wheezing or cough. Abdomen: Soft, nontender, nondistended, moderate central obesity. Extremities: With attention to the right hip site, incision site is clean with intact dressing and no erythema, induration or drainage. I did not elicit notable point tenderness to palpation of his feet or legs. ASSESSMENT/PLAN: #1. Right hip total arthroplasty. The patient is doing well postoperatively. He has reasonable pain control with oral medications. He has remained hemodynamically stable. He is reporting decreased comfort with mobility due to receiving Lipitor. Review of the MAR shows he received at most one dose. We can check CK but doubt rhabdo. DVT prophylaxis is with Xarelto. Anticipate patient will be able to transition to home within 24-48 hours. #2. NIDDM. Patient exhibits good glucose control. He's been continued on his Lantus along with sliding scale insulin. #3. Hypertension. Blood pressure continues under good control with systolic blood pressures ranging 132-135 on his usual home medication regimen of Norvasc. VS,Fishbone, I+O VS, Fishbone, I+O Laboratory Tests 09/16/18 05:17 Red Blood Count 3.83 L, Mean Corpuscular Volume 89.8, Mean Corpuscular Hemoglobin 29.2, Mean Corpuscular Hemoglobin Concent 32.6, Red Cell Distribution Width 12.9, Calcium Level 8.7 Vital Signs Date Time Temp Pulse Resp B/P (MAP) Pulse Ox O2 Delivery O2 Flow Rate FiO2 09/16/18 13:43 18 09/16/18 08:25 72 152/79 09/16/18 06:00 98.0 94 I&O- Last 24 Hours up to 6 AM 09/16/18 06:00 Intake Total 1720 ml Output Total 900 ml Balance 820 ml JUAN FRANCISCO MIRZA MD Sep 16, 2018 14:00
[2018-09-16 14:04] VITALS: BP 133/78
[2018-09-16] MEDS: RIVAROXABAN 10 MG TAB (XARELTO) PO SCH (18:00)
[2018-09-16 19:45] VITALS: BP 128/82
[2018-09-16 22:00] VITALS: BP 143/93
[2018-09-17] MEDS: PERCOCET 5MG/325MG TAB PO PRN ×4 (04:49→22:01)
[2018-09-17 06:00] VITALS: BP 151/85
[2018-09-17 06:11] LABS: HEMATOCRIT 34.2 % (42.0-52.0); HEMOGLOBIN 11.3 g/dl (13.5-17.5); MEAN CORPUSCULAR VOLUME 90.7 fl (80.0-96.0); PLATELET COUNT, AUTOMATED 188 10^3/uL (150-450); RED BLOOD COUNT 3.77 10^6/uL (4.30-6.10); WHITE BLOOD COUNT 5.8 10^3/uL (4.0-10.0)
[2018-09-17 06:32] LABS: BLOOD UREA NITROGEN 13 MG/DL (7-18); CALCIUM LEVEL 9.1 MG/DL (8.5-10.1); CARBON DIOXIDE LEVEL 31 MEQ/L (21-32); CHLORIDE LEVEL 102 MEQ/L (98-107); GLOMERULAR FILTRATION RATE > 60.0 (>56); GLUCOSE, FASTING 166 MG/DL (70-100); POTASSIUM SERUM 3.7 MEQ/L (3.5-5.1); SODIUM LEVEL 138 MEQ/L (136-145)
[2018-09-17] MEDS: LEVEMIR (INSULIN DETEMIR) 1 UNITS/0.01ML SC SCH (08:13)
[2018-09-17] MEDS: amLODIPine 10 MG TAB PO SCH (08:14)
[2018-09-17] MEDS: MIRALAX *UNIT DOSE* 17GM PACKET PO SCH (08:14)
[2018-09-17] MEDS: MULTIVITAMINS/MINERALS THERAP 1 TAB PO SCH (08:14)
[2018-09-17] MEDS: MOM 30ML SUSPENSION UDC PO SCH (08:14)
[2018-09-17] MEDS: HumaLOG INSULIN (NovoLOG) PER UNIT SC SCH ×3 (08:14→17:55)
[2018-09-17] MEDS: MORPHINE 15 MG SA TAB PO SCH ×2 (08:15→21:29)
[2018-09-17] MEDS ORDERED: MS C15TA8 PO (08:38)
[2018-09-17] MEDS: CYCLOBENZAPRINE 10 MG TAB PO PRN ×2 (11:01→19:51)
[2018-09-17 14:00] VITALS: BP 149/85
[2018-09-17] MEDS: RIVAROXABAN 10 MG TAB (XARELTO) PO SCH (17:56)
--- NOTE | 2018-09-17 20:38 | IPNPDOC ---
Text Note Date of Service The patient was seen on 09/17/18. NOTE The patient continues to exhibit poor mobility due to pain. He is attributing his pain to receiving a dosage of statin during this hospital stay. He also has repeatedly expressed concerns about the condition of the incision site. The patient is status post right total hip arthroplasty. PHYSICAL EXAM: HENT: Neck is supple with no adenopathy or thyromegaly, oral mucosa is moist. Cardiovascular exam: shows a regular rate and rhythm with a normal S1 and S2 and no appreciable murmur or bruit Respiratory: Clear to auscultation with no wheezing or cough. Abdomen: Soft, nontender, nondistended, moderate central obesity. Extremities: With attention to the right hip site, incision site is clean with intact dressing and no erythema, induration or drainage. I did not elicit nota ble point tenderness to palpation of his feet or legs. Patient reports swelling and pain and need for ice packs. ASSESSMENT/PLAN: #1. Right hip total arthroplasty. The patient is doing well postoperatively. He has reasonable pain control with oral medications. He has remained hemodynamically stable. He is reporting decreased comfort with mobility due to receiving Lipitor. He has a listed allergy to statins. Review of the MAR shows he received at most one dose. We checked his CK which is normal at 268. DVT prophylaxis is with Xarelto which the patient has been refusing as he is concerned about adverse drug reactions. I have spoken with his doctor, Dr. Torres, who is a neurologist at [facility] in [place]. The patient is in the process of undergoing genetic testing to look at drug reactions. However, she also notes that he has substantial risk of thrombosis and does recommend th at he take at least the lower dose of Xarelto suggested by the orthopedic service. I have also discussed with the patient that if he is not sufficiently mobile for home that he may need to consider long term placement. The patient has been expressing concern about his incision site since immediat charo postoperatively. Site has been reviewed and followed by the orthopedic service and is doing well. #2. NIDDM. Patient exhibits good glucose control. He's been continued on his Lantus along with sliding scale insulin. #3. Hypertension. Blood pressure continues under good control with systolic blood pressures ranging 132-135 on his usual home medication regimen of Norvasc. VS,Fishbone, I+O VS, Fishbone, I+O Laboratory Tests 09/17/18 05:12 Red Blood Count 3.77 L, Mean Corpuscular Volume 90.7, Mean Corpuscular Hemoglobin 30.0, Mean Corpuscular Hemoglobin Concent 33.0, Red Cell Distribution Width 12.6, Calcium Level 9.1 Vital Signs Date Time Temp Pulse Resp B/P (MAP) Pulse Ox O2 Delivery O2 Flow Rate FiO2 09/17/18 18:26 18 09/17/18 14:00 98.8 81 149/85 (106) 95 I&O- Last 24 Hours up to 6 AM 09/17/18 06:00 Intake Total 2640 ml Output Total 325 ml Balance 2315 ml JUAN FRANCISCO MIRZA MD Sep 17, 2018 20:38
[2018-09-17 22:00] VITALS: BP 160/89
[2018-09-18] MEDS: PERCOCET 5MG/325MG TAB PO PRN ×2 (01:58→10:17)
[2018-09-18] MEDS ORDERED: diphenhydrAMINE CREAM 30GM TOP PRN (02:45)
[2018-09-18 06:00] VITALS: BP 144/86
[2018-09-18] MEDS ORDERED: XARE10TA PO (07:13)
[2018-09-18] MEDS: MOM 30ML SUSPENSION UDC PO SCH (08:10)
[2018-09-18] MEDS: LEVEMIR (INSULIN DETEMIR) 1 UNITS/0.01ML SC SCH (08:10)
[2018-09-18 08:11] VITALS: BP 144/86
[2018-09-18] MEDS: MULTIVITAMINS/MINERALS THERAP 1 TAB PO SCH (08:11)
[2018-09-18] MEDS: HumaLOG INSULIN (NovoLOG) PER UNIT SC SCH ×2 (08:11→12:00)
[2018-09-18] MEDS: MORPHINE 15 MG SA TAB PO SCH (08:11)
[2018-09-18] MEDS: MIRALAX *UNIT DOSE* 17GM PACKET PO SCH (08:11)
[2018-09-18] MEDS: amLODIPine 10 MG TAB PO SCH (08:11)
== END 2018-09-18 13:35 | disposition home or self-care (01) | DRG 301 ==
LOC: M OR 06:47 → M MS5PR 14:50
PROVIDERS: ADMIT Orthopaedic Surgery; ATTEND Orthopaedic Surgery
PROC: 0SR90JA Replacement of Right Hip Joint with Synthetic Substitute, Uncemented, Open Approach (ICD-10-PCS; principal; 2018-09-14 09:40)
DX: M16.11 Unilateral primary osteoarthritis, right hip (principal); I10 Essential (primary) hypertension; E11.9 Type 2 diabetes mellitus without complications; I69.898 Other sequelae of other cerebrovascular disease; I25.2 Old myocardial infarction; Z88.8 Allergy status to other drugs, medicaments and biological substances; Z91.013 Allergy to seafood; Z79.4 Long term (current) use of insulin; I25.10 Atherosclerotic heart disease of native coronary artery without angina pectoris

== ENCOUNTER 2018-10-10 18:44 | Inpatient (IN) | payer BC ==
[~2018-10-10] VITALS: Ht 188 cm; Wt 108.4 kg
[~2018-10-10 18:44] MED LIST changes: -ACETAMINOPHEN 500 MG TAB PO ONE; +CYCL10TA PO; -LR 1,000 ML IV ONE; +MS C15TA8 PO; +PERC5TAB12 PO; +XARE10TA PO
[2018-10-10] MEDS ORDERED: ACET25TA12 PO (19:56)
[2018-10-10] MEDS ORDERED: MS C15TA8 PO (19:56)
[2018-10-10] MEDS ORDERED: XARE10TA PO (19:56)
[2018-10-10] MEDS ORDERED: CYCL10TA PO (19:56)
[2018-10-10 21:33] LABS: BASO % 0.3 % (0.0-1.0); EOS # 0.1 10^3/uL (0.0-0.50); EOS % 0.6 % (0.0-3.0); HEMATOCRIT 38.6 % (42.0-52.0); HEMOGLOBIN 12.8 g/dl (13.5-17.5); LYMPH % 9.7 % (24.0-44.0); MEAN CORPUSCULAR HEMOGLOBIN 30.2 pg (27.0-33.0); MEAN CORPUSCULAR HGB CONC 33.2 g/dl (32.0-36.5); MONO % 9.2 % (0.0-5.0); NEUTROPHILS # 8.2 10^3/uL (1.8-7.7); NEUTROPHILS % 79.7 % (36.0-66.0); PLATELET COUNT, AUTOMATED 202 10^3/uL (150-450); RED BLOOD COUNT 4.24 10^6/uL (4.30-6.10); WHITE BLOOD COUNT 10.3 10^3/uL (4.0-10.0)
[2018-10-10 21:44] LABS: INR 1.03; PROTHROMBIN TIME 13.2 SECONDS (11.8-14.0)
[2018-10-10 21:52] LABS: BLOOD UREA NITROGEN 12 MG/DL (7-18); CALCIUM LEVEL 9.3 MG/DL (8.5-10.1); CARBON DIOXIDE LEVEL 31 MEQ/L (21-32); CHLORIDE LEVEL 102 MEQ/L (98-107); GLOMERULAR FILTRATION RATE > 60.0 (>56); GLUCOSE, FASTING 176 MG/DL (70-100); POTASSIUM SERUM 4.3 MEQ/L (3.5-5.1); SODIUM LEVEL 139 MEQ/L (136-145)
[2018-10-10] MEDS ORDERED: MORPHINE 4 MG/ML 1ML VIAL/SYRINGE (J2270) IV PRN (22:00)
[2018-10-10] MEDS ORDERED: FAMOTIDINE 20 MG TAB PO PRN (22:00)
[2018-10-10] MEDS ORDERED: FAMOTIDINE IV BAG 20 MG in APPROPRIATE DILUENT 1 EA IV PRN (22:00)
[2018-10-10] MEDS ORDERED: ONDANSETRON 4MG/2ML VIAL (J2405) IV PRN (22:00)
[2018-10-10] MEDS ORDERED: ACETAMINOPHEN 500 MG TAB PO PRN (22:15)
[2018-10-10] MEDS ORDERED: CYCLOBENZAPRINE 10 MG TAB PO PRN (22:45)
[2018-10-10 23:05] VITALS: BP 144/74
[2018-10-11] VITALS (10 sets, daily range): BP systolic 127–155; BP diastolic 73–90
[2018-10-11] MEDS: LR 1,000 ML IV SCH ×3 (00:05→20:00)
--- NOTE | 2018-10-11 02:49 | CR.PDOC ---
General Date of Consultation: Oct 11, 2018 Referring Provider: CASEY MAYA MD Primary Care Physician: Elbert Negro Attending Physician: ELLIOT KEMP MD Consultation CONSULTING SERVICE: ORTHOPEDIC SURGERY CONSULTING PROVIDER: Dr. Maya REASON FOR CONSULT: Medical management HISTORY OF PRESENT ILLNESS: Patient is a 57-year-old male with history of a right total hip arthroplasty on 09/14/18. He states on 09/29/18 he had his rosalind removed from his surgery and had accompanying drainage which stopped this past Saturday 10/07. Once the drainage had stopped, over the next several days, his right hip became more swollen and painful. He presented to [facility] orthopedic group for follow-up and was told that this was generally normal. Over the course of next several days, the swelling and pain became worse and the morning of 10/10 he had difficulty moving, felt weak, and achy so he went to [facility] emergency department where he was noted to be febrile with an elevated white blood cell count. He was transferred to [facility] emergency department and will be admitted by the orthopedic surgery group for washout on 10/11. We've been consulted for medical management while he is in the hospital. PAST MEDICAL HISTORY: Type 2 diabetes Hypertension History of CVA (01/2018) CAD Hyperlipidemia Sleep apnea History of myocardial infarction History of gastro-jejunal ulcer PAST SURGICAL HISTORY: Right total hip arthroplasty Right/left inguinal hernia repair Coronary artery stenting 2013 Lithotripsy 2013 ESWL (2011, 2013) Left carpal tunnel tunnel 2015 Gastric bypass 2016 Cardiac stent 2018 SOCIAL HISTORY: Nonsmoker, doesn't drink, no illicit drug use. Lives at home with and son. FAMILY HISTORY: Reviewed with the patient and is Noncontributory ALLERGIES: Please see below. REVIEW OF SYSTEMS: GENERAL: Denies recent unexpected weight change, night sweats, hemoptysis. Admits to fevers, chills. HEENT: Denies headache, dizziness, vision changes, hearing loss, sore throat CARDIOVASCULAR: Denies chest pain, palpitations, orthopnea RESPIRATORY: Denies shortness of breath, wheezing, cough GASTROINTESTINAL: denies nausea, vomiting, abdominal pain, constipation, diarrhea, bloody stool GENITOURINARY: Denies dysuria,urinary urgency, hematuria. MUSCULOSKELETAL: Admits to right hip pain, swelling. NEUROLOGICAL: Denies any numbness/tingling, focal weakness, or syncope HOME MEDICATIONS: Please see below. PHYSICAL EXAMINATION: Vitals: (see below) General: No acute distress, laying comfortably in bed. HEENT: Normocephalic, atraumatic. EOMI. No scleral icterus. Moist mucous membranes. No pharyngeal erythema or uvular deviation. Neck: No JVD, lymphadenopathy, or thyromegaly. Cardiac: RRR, Normal S1 and S2, No murmurs, gallops, rubs. Pulm: Clear to auscultation b/l. Symmetric thorax. No wheezing, crackles, rhonchi Abd: Bowel Sounds present. Abdomen is soft, non-tender, non-distended. No guarding, rebound tenderness, or rigidity. No hepatosplenomegaly. No masses or eccymosis. Ext: No edema or cyanosis. Along proximal lateral right lower extremity with a 4-5 cm area of erythema and swelling. There is no drainage from the wound. It is tender to palpation Neuro: Alert and oriented, CN 3-12 grossly intact. LABORATORY DATA: See below. IMAGING: MICROBIOLOGY: Please see below. ASSESSMENT/PLAN: #. Hypertension -Ok to continue Norvasc #. Type 2 diabetes -On sliding scale insulin -Cut Levemir dose in half for tonight then resume home dosage after surgery #. Right hip Arthroplasty washout Holding antibiotics per orthopedic surgeon instructions, as they would like to culture the wound in the OR [place], morphine prescribed for pain control per ortho orders Zofran for nausea, Pepcid for GI prophylaxis per ortho orders #. Hyperlipidemia -Due to severe statin allergy, he receives twice weekly injections of repatha. We will hold this for now while he is inpatient. #. History of CVA -Continue with aspirin -Will hold Xarelto for the procedure, can resume after -DVT prophy: Compression stockings, aspirin Vital Signs/I&O Vital Signs Date Time Temp Pulse Resp B/P (MAP) Pulse Ox O2 Delivery O2 Flow Rate FiO2 10/10/18 23:05 99.4 100 16 144/74 (97) 97 10/10/18 22:45 Room Air I&O- Last 24 Hours up to 6 AM 10/11/18 06:00 Intake Total 480 ml Output Total 0 ml Balance 480 ml Laboratory Data Labs 24H Laboratory Tests 2 10/10/18 21:25: Immature Granulocyte % (Auto) 0.5, White Blood Count 10.3H, Red Blood Count 4.24L, Hemoglobin 12.8L, Hematocrit 38.6L, Mean Corpuscular Volume 91.0, Mean Corpuscular Hemoglobin 30.2, Mean Corpuscular Hemoglobin Concent 33.2, Red Cell Distribution Width 13.1, Platelet Count 202, Neutrophils (%) (Auto) 79.7H, Lymphocytes (%) (Auto) 9.7L, Monocytes (%) (Auto) 9.2H, Eosinophils (%) (Auto) 0.6, Basophils (%) (Auto) 0.3, Neutrophils # (Auto) 8.2H, Lymphocytes # (Auto) 1.0L, Monocytes # (Auto) 1.0H, Eosinophils # (Auto) 0.1, Basophils # (Auto) 0.0, Nucleated Red Blood Cells % (auto) 0.0, Prothrombin Time 13.2, Prothromb Time International Ratio 1.03, Anion Gap 6L, Glomerular Filtration Rate > 60.0, Blood Urea Nitrogen 12, Creatinine 0.90, Sodium Level 139, Potassium Level 4.3, Chloride Level 102, Carbon Dioxide Level 31, Calcium Level 9.3 CBC/BMP Laboratory Tests 10/10/18 21:25 Red Blood Count 4.24 L, Mean Corpuscular Volume 91.0, Mean Corpuscular Hemoglobin 30.2, Mean Corpuscular Hemoglobin Concent 33.2, Red Cell Distribution Width 13.1, Neutrophils (%) (Auto) 79.7 H, Lymphocytes (%) (Auto) 9.7 L, Monocytes (%) (Auto) 9.2 H, Eosinophils (%) (Auto) 0.6, Basophils (%) (Auto) 0.3, Neutrophils # (Auto) 8.2 H, Lymphocytes # (Auto) 1.0 L, Monocytes # (Auto) 1.0 H, Eosinophils # (Auto) 0.1, Basophils # (Auto) 0.0, Calcium Level 9.3 Microbiology Microbiology 10/10/18 Blood Culture, Received Pending Allergies Coded Allergies: shellfish derived (Verified Allergy, Severe, ANAPHYLAXIS, 10/10/18) BLANE Inhibitors (Verified Adverse Reaction, Severe, MUSCLE PAIN AND WEAKNESS, DIFFICULTY URINATING, 10/10/18) HX OF RHABDOMYOLYSIS Beta-Blockers (Beta-Adrenergic Bloc (Verified Adverse Reaction, Severe, MUSCLE PAIN AND WEAKNESS, DIFFICULTY URINATING, 10/10/18) HX OF RHABDOMYOLYSIS Tkobhwi-Zkb-Fjr Reductase Inhibitor (Verified Adverse Reaction, Severe, MUSCLE PAIN AND WEAKNESS, DIFFICULTY URINATING, 10/10/18) HX OF RHABDOMYOLYSIS Home Medications Scheduled Acetaminophen/Diphenhydramine (Acetaminophen Pm Caplet) 1 Each Tablet, 2 TAB PO QHS, (Reported) Amlodipine Besylate (Amlodipine Besylate) 10 Mg Tablet, 10 MG PO DAILY, (Reported) Cholecalciferol (Vitamin D3) (Vitamin D3) 1,000 Unit Tab, 1,000 UNIT PO DAILY, (Reported) Evolocumab (Repatha Sureclick) 140 Mg/1 Ml Pen.injctr, 140 MG SC Q2WK, (Reported) EVERY OTHER FRIDAY; DUE FOR NEXT INJ. 10/14/18 Insulin Glargine (Lantus) 1 Units/0.01 Ml Susp, 60 UNITS SC DAILY, (Reported) Multivitamins (Thera M Plus Tablet) 1 Tab Tab, 1 TAB PO DAILY, (Reported) Rivaroxaban (Xarelto) 10 Mg Tablet, 10 MG PO DAILY, (Reported) Scheduled PRN Cyclobenzaprine HCl (Cyclobenzaprine HCl) 10 Mg Tablet, 10 MG PO TID PRN for MUSCLE SPASMS, (Reported) Morphine Sulfate (Ms Contin) 15 Mg Tablet.er, 15 MG PO BID PRN for PAIN, (Reported) GME ATTESTATION GME ATTESTATION My faculty preceptor for this patient encounter was physically present during the encounter and was fully available. All aspects of the patient interview, examination, medical decision making process, and medical care plan development were reviewed and approved by the faculty preceptor. The faculty preceptor is aware and concurs with the plan as stated in the body of this note and will attest to such by his/her cosignature. ATTENDING NOTE I personally performed a history and physical examination of the patient and discussed the management with the resident. I reviewed the resident's note and agree with the documented findings and plan of care. TRACI ZAVALA DO Oct 11, 2018 02:49 ELLIOT KEMP MD Oct 11, 2018 22:47
[2018-10-11] MEDS: ANEXSIA, NORCO 7.5MG/325MG TABLET(HYDROCODONE/APAP) PO PRN ×3 (06:58→22:08)
--- NOTE | 2018-10-11 07:47 | IPNPDOC ---
Text Note Date of Service The patient was seen on 10/11/18. NOTE Chart reviewed.Patient is medically optimized and can proceed with surgery VS,Fishbone, I+O VS, Fishbone, I+O Laboratory Tests 10/10/18 21:25 Red Blood Count 4.24 L, Mean Corpuscular Volume 91.0, Mean Corpuscular Hemoglobin 30.2, Mean Corpuscular Hemoglobin Concent 33.2, Red Cell Distribution Width 13.1, Neutrophils (%) (Auto) 79.7 H, Lymphocytes (%) (Auto) 9.7 L, Monocytes (%) (Auto) 9.2 H, Eosinophils (%) (Auto) 0.6, Basophils (%) (Auto) 0.3, Neutrophils # (Auto) 8.2 H, Lymphocytes # (Auto) 1.0 L, Monocytes # (Auto) 1.0 H, Eosinophils # (Auto) 0.1, Basophils # (Auto) 0.0, Calcium Level 9.3 Vital Signs Date Time Temp Pulse Resp B/P (MAP) Pulse Ox O2 Delivery O2 Flow Rate FiO2 10/11/18 06:58 16 10/11/18 06:00 99.9 91 155/90 (111) 96 10/10/18 22:45 Room Air I&O- Last 24 Hours up to 6 AM 10/11/18 06:00 Intake Total 480 ml Output Total 300 ml Balance 180 ml CRISTIAN COLON DO Oct 11, 2018 07:47
[2018-10-11] MEDS: amLODIPine 10 MG TAB PO SCH (08:04)
--- NOTE | 2018-10-11 08:32 | HPE ---
DATE OF ADMISSION: 10/10/2018 INDICATION: Right hip pain. HISTORY OF PRESENT ILLNESS: Mustapha is a very pleasant 57-year-old gentleman who underwent a right total hip arthroplasty around 09/14/2018 by my partner, Dr. Villegas. The patient developed worsening hip pain last week; in particular, lateral hip pain; and denied any significant groin pain. The patient had a progressive lateral thigh swelling pain and redness and presented to the [facility], where the patient had a dramatically elevated C-reactive protein, and the emergency room (ER) physician promotions assistant sales marketing (PA) was concerned for infection and contacted me. After discussing the case, I recommend the patient be transferred to [facility] so I could personally evaluate the patient. When I did discuss the location of the patient's symptoms, derrek reports that it is primarily lateral hip pain. He really does not have any significant groin pain. He has still been able to put some weight on it. He did have some drainage after surgery. No drainage in the last few days. He did have a fever to 102.5 at [facility]. He has not been on any antibiotics. He is still taking Xarelto for deep venous thrombosis (DVT) prophylaxis. His last dose was in the morning of 10/10/2018. PAST MEDICAL HISTORY: Notable for a stroke, status post stenting. He has diabetes, on insulin. He has hypertension. PAST SURGICAL HISTORY: As above. MEDICATIONS: - amlodipine - Xarelto - multivitamin - Lantus - Tylenol ALLERGIES: BETA ARELIS, ANGIOTENSIN-CONVERTING ENZYME (BLANE) INHIBITOR, STATINS. 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 The patient does not smoke, abuse alcohol or illicit drugs. REVIEW OF SYSTEMS: The patient denies cardiac, pulmonary, abdominal symptoms. Musculoskeletal: The patient reports right hip pain. Denies numbness or tingling. Urologic: The patient notes some atypical odor to the urine, and it is darker than normal but no burning or frequency. PHYSICAL EXAMINATION: Reveals a well-appearing gentleman in no distress. He is alert and times three. Neurologic: Appropriate mood, very pleasant to talk to. Vital signs: Currently just had a temperature of over 101 in the ER here. He did have a temperature to 102.5 earlier in the day. Pulmonary: The patient has regular nonlabored breathing. Cardiovascular: The patient has palpable distal pulses in the right lower extremity. Exam of the skin in the right hip reveals that the incision is well-approximated. There is no drainage or signs of dehiscence. Musculoskeletal: There is mild erythema at the distal aspect of the lateral hip incision. There is significant increased warmth. There is localized swelling consistent with a fluid collection deep to the incision. The area is firm but not fluctuant. It is tender to palpation. The patient does not have any significant groin pain with gentle logroll. He has intact extensor hallucis longus (EHL), flexor hallucis longus (FHL), tibialis anterior (TA), and gastrocnemius (and) soleus (GS) (muscles). Sensation to light touch grossly intact distally. LABORATORIES: From an outside hospital showed an ESR of 39, a C-reactive protein of 249, white blood cell count of 12, glucose was just over 250. ASSESSMENT AND PLAN: Mr. Lares is a 57-year-old gentleman, status post right total hip arthroplasty on 09/14/2018, who has postoperative right hip pain and swelling. Clinical picture is most consistent with probable secondary superficial infection. At this point, there is no clinical concern for a deep infection. I have discussed this case with his surgeon, and the plan is to admit the patient tonight with the plan to perform incision and drainage in the morning on 10/11/2018. Given that he has elevated blood sugars with multiple medical problems, I did call the hospitalist to manage his medications; in particular, his glucose, so that there is no delay in surgery due to profoundly elevated blood sugars. Will use Hydrocodone for pain control, as oxycodone did not work great for him the first time. I was very clear with the patient that we were going to hold all antibiotics, we were going to hold his blood thinners; and although he did receive a dose of Xarelto this morning, he will just have to move forward with surgery tomorrow. He just will not be able to have a spinal. I will hold all other blood thinners. The patient will be nothing by mouth after midnight. He will have sequential compression devices (SCDs) bilateral lower extremities while in bed for DVT prophylaxis, and the plan will be to move forward with surgery in the morning on 10/11/2018. All the patient's questions were answered. He agrees with the plan.
[2018-10-11] MEDS ORDERED: EPINEPHrine INJ 1 MG/ML 1ML AMP As Ordered ONE (08:53)
[2018-10-11] MEDS ORDERED: ceFAZolin 1GM INJ (J0690 PER 500MG) As Ordered ONE ×2 (08:53→10:08)
[2018-10-11 08:58] LABS: ERYTHROCYTE SEDIMENTATION RATE 70 mm/hr (0-20)
[2018-10-11] MEDS ORDERED: LEVEMIR (INSULIN DETEMIR) 1 UNITS/0.01ML SC SCH (09:00)
[2018-10-11] MEDS ORDERED: fentaNYL 250 MCG/5 ML INJECTION (J3010) As Ordered ONE (09:07)
[2018-10-11] MEDS ORDERED: ROCURONIUM BROMIDE 50 MG/5 ML VIAL As Ordered ONE (09:07)
[2018-10-11] MEDS ORDERED: PROPOFOL 200 MG/20 ML VIAL As Ordered ONE (09:07)
[2018-10-11] MEDS ORDERED: LIDOCAINE 2% INJ 100 MG/5 ML SYRINGE As Ordered ONE (09:07)
[2018-10-11] MEDS ORDERED: MIDAZOLAM INJ 2 MG/2 ML VIAL (J2250) As Ordered ONE (09:07)
[2018-10-11] MEDS ORDERED: VANCOMYCIN HCL 500 MG/10 ML VIAL (J3370) As Ordered ONE ×3 (09:18→10:39)
[2018-10-11] MEDS ORDERED: TOBRAMYCIN SULF 1.2 GM VIAL As Ordered ONE (09:31)
[2018-10-11] MEDS ORDERED: METOCLOPRAMIDE INJ 10MG/2ML VIAL (J2765) As Ordered ONE (09:36)
[2018-10-11] MEDS ORDERED: ceFAZolin 2 GM/D5W 50 ML IV BAG (J0690 PER 500MG) As Ordered ONE (10:07)
[2018-10-11] MEDS ORDERED: ONDANSETRON 4MG/2ML VIAL (J2405) As Ordered ONE ×2 (10:42→12:05)
[2018-10-11] MEDS ORDERED: SUGAMMADEX SODIUM 500 MG/5 ML VIAL (BRIDION) As Ordered ONE (10:43)
[2018-10-11] MEDS ORDERED: fentaNYL 100 MCG/2 ML INJECTION (J3010) As Ordered ONE (11:37)
[2018-10-11] MEDS ORDERED: PERCOCET 5MG/325MG TAB As Ordered ONE ×2 (11:37→12:26)
[2018-10-11] MEDS: PERCOCET 5MG/325MG TAB PO PRN ×2 (11:40→12:22)
[2018-10-11] MEDS ORDERED: MORPHINE 10 MG/ML 1ML VIAL (J2270) As Ordered ONE (11:41)
[2018-10-11] MEDS: MORPHINE 10 MG/ML 1ML VIAL (J2270) IV PRN ×3 (11:44→12:08)
[2018-10-11] MEDS ORDERED: METOCLOPRAMIDE INJ 10MG/2ML VIAL (J2765) IV PRN (11:45)
[2018-10-11] MEDS ORDERED: fentaNYL 100 MCG/2 ML INJECTION (J3010) IV PRN (11:45)
[2018-10-11] MEDS ORDERED: ONDANSETRON 4MG/2ML VIAL (J2405) IV PRN (11:45)
[2018-10-11] MEDS ORDERED: LR 1,000 ML IV SCH (11:45)
--- NOTE | 2018-10-11 12:43 | PHACANCOPD ---
PHARMACY VANCOMYCIN DOSING Pt Demographics Demographics Patient Age:57 , Weight:108.400 , Gender: male Adjusted Body Weight Date: 10/11/18, Adjusted Body Weight: Kg Events Past 24 Hours Events Past 24 Hours: YES: Fever, Elevation in WBC; NO: Dialysis, Diuretic Therapy, Change in CrCl, Pending Diagnostics, Pending Procedures, Other Vancomycin Vancomycin indication: post op hip infection Vancomycin Target Ranges: 10-20 mcg/ml Vancomycin Load Y/N: Yes Load Dose Date Time Vancomycin Load Dose: 1000mg Date: 10/11 Time: ~1500 Vancomycin Dose Date: 10/11/18. Current Vancomycin Dose: [1g q8h @20] Intermittent Dosing?: No Labs Labs Item Value Date Time White Blood Count 10.3 10^3/uL H 10/10/182124 C-Reactive Protein, Quantitative 26.80 MG/DL H 10/10/182124 Creatinine 0.90 MG/DL 10/10/182124 Vital Signs Label Value Date Time Patient Temperature 101.4 degrees F 10/10/182141 Temperature Source Oral 10/10/182141 Micro Microbiology 10/10/18 Blood Culture, Received Pending 10/11/18 Surgical Biopsy Culture, Received Pending 10/11/18 Gram Stain, Received Pending 10/11/18 Wound Culture, Received Pending 10/11/18 Anaerobic Culture, Received Pending Creatinine Clearance Date:10/11/18. Creatinine Clearance: [>100 ml/min]. Pending Labs Vanco trough scheduled 10/13 @11:00 Assessment and Plan Maintaining Current Dose?: Yes Reason for dose change: No Dose Change Pharmacist Note Pharmacist Note Date: 10/11/18. Pharmacist note: pt has been started on Rocephin and Vancomycin s/p I&D of his hip today which was replaced ~3 weeks ago. He has not been on vancomycin at our facility in the past. He received irrigation with tobra and vancomycin in the OR, Ancef was given preop IV. I have ordered vancomycin 1g to be given this afternoon, followed by 1g q8h dosing to start ~5 hours later. I have a trough scheduled for Friday morning. Cultures from the OR are pending. We will continue to monitor and make adjustments as necessary. Israel Danielle Pharm.D. Oct 11, 2018 12:43
[2018-10-11] MEDS: HumaLOG INSULIN (NovoLOG) PER UNIT SC SCH ×3 (13:20→20:50)
[2018-10-11] MEDS ORDERED: VANCOMYCIN HCL 1,000 MG, VIAL MATE ADAPTER 1 EACH in D5W 250 ML IV ONE (15:00)
[2018-10-11] MEDS: cefTRIAXone SOD 2 GM in D5W MINI-BAG PLUS 50 ML IV SCH (16:24)
[2018-10-11] MEDS: VANCOMYCIN HCL 1,000 MG, VIAL MATE ADAPTER 1 EACH in D5W 250 ML IV SCH (20:49)
[2018-10-12] MEDS ORDERED: TAMSULOSIN 0.4 MG CAP PO ONE (01:15)
[2018-10-12 01:33] VITALS: BP 146/85
[2018-10-12] MEDS: ANEXSIA, NORCO 7.5MG/325MG TABLET(HYDROCODONE/APAP) PO PRN ×4 (02:13→20:23)
[2018-10-12] MEDS: VANCOMYCIN HCL 1,000 MG, VIAL MATE ADAPTER 1 EACH in D5W 250 ML IV SCH ×3 (04:28→20:23)
[2018-10-12 05:12] VITALS: BP 145/86
[2018-10-12] MEDS: LR 1,000 ML IV SCH (05:26)
[2018-10-12] MEDS ORDERED: PERCOCET 5MG/325MG TAB PO PRN (06:00)
[2018-10-12 06:49] LABS: MEAN CORPUSCULAR HGB CONC 32.4 g/dl (32.0-36.5); MEAN CORPUSCULAR VOLUME 92.6 fl (80.0-96.0); PLATELET COUNT, AUTOMATED 180 10^3/uL (150-450); RED BLOOD COUNT 3.67 10^6/uL (4.30-6.10); WHITE BLOOD COUNT 6.7 10^3/uL (4.0-10.0)
[2018-10-12 07:14] LABS: ERYTHROCYTE SEDIMENTATION RATE 69 mm/hr (0-20)
[2018-10-12 07:18] LABS: BLOOD UREA NITROGEN 12 MG/DL (7-18); CALCIUM LEVEL 8.7 MG/DL (8.5-10.1); CARBON DIOXIDE LEVEL 32 MEQ/L (21-32); CHLORIDE LEVEL 101 MEQ/L (98-107); CREATININE FOR GFR 0.82 MG/DL (0.70-1.30); GLOMERULAR FILTRATION RATE > 60.0 (>56); GLUCOSE, FASTING 178 MG/DL (70-100); POTASSIUM SERUM 4.1 MEQ/L (3.5-5.1); SODIUM LEVEL 136 MEQ/L (136-145)
[2018-10-12] MEDS: HumaLOG INSULIN (NovoLOG) PER UNIT SC SCH ×4 (08:28→21:32)
[2018-10-12] MEDS: MOM 30ML SUSPENSION UDC PO SCH (08:28)
[2018-10-12] MEDS: MIRALAX *UNIT DOSE* 17GM PACKET PO SCH (08:28)
[2018-10-12] MEDS: SENOKOT S TAB PO SCH ×2 (08:29→20:23)
[2018-10-12] MEDS: amLODIPine 10 MG TAB PO SCH (08:32)
--- NOTE | 2018-10-12 08:37 | RO ---
DATE OF PROCEDURE: 10/11/2018 PREOPERATIVE DIAGNOSIS: Right total hip replacement infection. POSTOPERATIVE DIAGNOSIS: Right total hip replacement infection. PROCEDURE: 1. Right total hip replacement open irrigation debridement, synovectomy. 2. Right total hip replacement exchange of femoral head and polyethylene liner. 3. Insertion of antibiotic beads and vancomycin powder within the wound. 4. Insertion of a flat J-vac drain superficially. SURGEON: Dr. Karely Villegas DIAMOND MOUNTER: None. ANESTHESIA: General endotracheal tube anesthesia. SPECIMENS: Intraoperative anaerobic gram stain cultures and sensitivities that were sent as well as synovial tissue for culture as well. COMPLICATIONS: None. ESTIMATED BLOOD LOSS: Approximately 1,000 mL. INDICATIONS: Mustapha had his hip replaced approximately 3 weeks ago by myself. He is very young and aggressive and he came to the office 2 weeks postoperatively driving his car by himself and walked into the office without the crutches. Sutures were removed and the wound looked perfect at that point. A few days after that he came back to the office noting drainage down his leg. The wound was soft but there was a blood discharge from the inferior part of the wound and dressing changes were instituted and then drainage over a couple of days stopped however the next day he describes developing some swelling, some soreness and then developed some fever over the last day or so and presented to our office and then his symptoms persisted and he went to [facility] yesterday and found to have a temperature of 102.5 with an elevated CRP, white count and a SED rate and he was transferred last evening to [facility] and my partner evaluated him and prepared him for surgery this morning. I came in this morning to see him. On exam he had a large fluctuant wound under a well healed skin incision with minimal erythema and there was some tenderness. There was no irritability with rotation of his hip. He was concerned for operative open irrigation and debridement of the wound and possible exchange of his components if indeed we felt there was an infection that penetrated down to the joint. He noted also that a few days ago he remembers getting into a car and feeling something pop within the wound. At the findings of surgery there was a dehiscence of the tensor fascia as well as through the abductor exospore into the joint exposing the components to the large brownish watery fluid . Thus it was felt that there was brownish watery fluid and thus it was felt that there was a infection that did involve the joint thus we proceeded with formal exchanges of the polyethylene liner as well as the femoral head. PROCEDURE: He was taken to the operating room and a general endotracheal tube anesthetic was established and placed in a lateral decubitus position. Patricio hip positioner and his down leg well padded and axillary roll utilized. His right hip area was then carefully prepped in the usual sterile fashion and after appropriate time out the incision was opened. As we opened into the deep subdermal tissues brownish fluid came out from within the wound and this was swabbed with two aerobic and anaerobic culture tubes. Went down through the tensor fascia distally nd thus a sample of synovial fluid with a rongeur was also sent to the lab and a specimen cut for culture. At this point I proceeded with the meticulous synovectomy using a combination of Rongeur and curettes to debride and hypertrophic synovitic material from beginning at the skin level all the way down into the depths of the wound. We then dislocated the hip anteriorly and placed the leg in a leg bag and removed the ceramic head and then continued using a curette around the rim of the acetabular component as well as around the shoulder of the prosthesis to remove any potential contaminated synovial fluid. I then exposed the acetabulum adequately enough to get the acetabular liner removable device and then removed the liner without difficulty. We continued our debridement in the depths of the acetabular component and again around the rim, this is using pulsatile lavage irrigant solution that contained 3 grams of Kefzol. A total of 6+ liters were utilized throughout the operation as we debrided this infected hip wound. Once I felt a thorough debridement had been obtained I then changed my sterile gloves to a fresh set of gloves and then opened the new polyethylene liner and that was inserted without difficulty, making sure that it was seated properly. We then irrigated once again and then the new femoral head was trailed to the trunnion. There was not a replacement ceramic 40 mm head available, thus I did use a metal head at this point. We then reduced the hip and as I was doing the synovectomy and debridement on the back table my campus administrative assistant mixed the antibiotic beads according to the manufactures specification using a combination of Tobramycin and vancomycin and then once the beads were hardened and secured they were placed into the hip joint. I then meticulously tried to close the abductor layer back anatomically to the greater trochanter using several interrupted #1 PDS sutures. I irrigated between layers and placed a deep flat drain and exited it out distally under the tensor fascia. I then used an additional 500 mg of Vancomycin powder into the superficial wounds after thoroughly irrigating. I then closed the tensor fascia layer over this drain with several interrupted #1 PDS sutures being very careful to make sure we did not capture that drain with out sutures. I then irrigated again and closed the more superficial subdermal layers with a running 0 Stratafix and then closed the skin layer with rosalind covered with an optifoam dressing. Dry sterile bulky dressings were applied over that and then the patient was turned supine and then awakened from general endotracheal tube anesthesia after having tolerated the procedure well and then transferred to the recovery room in stable condition. There were no intraoperative complications.
--- NOTE | 2018-10-12 11:29 | REP ---
Clinical: Status post incision and drainage. Technique: AP and cross-table lateral views right hip . Findings: Evidence for prior right hip replacement. Antibiotic pellets are identified in the joint space with drainage tube and overlying postsurgical changes. Impression: Status post incision and drainage to the right hip. Electronically Signed by Marquise Zavala MD 10/12/2018 11:20 A
[2018-10-12 14:00] VITALS: BP 153/87
[2018-10-12] MEDS: cefTRIAXone SOD 2 GM in D5W MINI-BAG PLUS 50 ML IV SCH (15:09)
[2018-10-12] MEDS: TAMSULOSIN 0.4 MG CAP PO SCH (16:20)
[2018-10-12] MEDS ORDERED: BISACODYL 10 MG SUPP PR PRN (20:30)
--- NOTE | 2018-10-12 20:40 | IPNPDOC ---
Text Note Date of Service The patient was seen on 10/12/18. NOTE Subjective: Patient complains of the right hip discomfort. In the morning he felt like he was feverish. Drainage in place, serosanguineous discharge. Patient has been constipated for 5 days Objective: General: NAD HEENT: PERRLA, EOMI, no JVD CV: S1 and S2, tachycardic at rate 110 Abdomen: Nontender, moderately distended Extremities: Right hip drainage in place, serosanguineous discharge Assessment and plan Patient is 57 years old male with past medical history of type 2 diabetes, gastric bypass, history of GI bleed, hypertension, history of ischemic stroke in 2018 with stent placement in basilar artery, sleep apnea, [place] present to the hospital with inflamed hip, orthopedic team proceeded with Right total hip replacement open irrigation debridement, synovectomy, right total hip replacement exchange of femoral head and polyethylene liner, insertion of antibiotic beads and vancomycin powder within the wound, Insertion of a flat J- vac drain superficially. Wound culture positive for staph aureus, await sensitivity. Blood culture for past 24 hours was negative. Antibiotic treatment with IV ceftriaxone and IV vancomycin started Status post repeated right hip arthroplasty Await blood culture Sedimentation rate Continue antibiotics Follows by orthopedic team Pain management Anticoagulation per orthopedic team Hypertension Continue home meds Type 2 diabetes -On sliding scale insulin Restarted basal insulin Levemir 30 units daily at bedtime for now Patient's home dose was 60 units of Lantus. However his blood glucose level during this hospitalization was around 200. Continue to monitor blood glucose level Hyperlipidemia twice weekly injections of repatha. Hold it for now History of CVA Patient was not on the blood thinners due to multiple episodes of upper GI bleed Follow-up with neurologist. Constipation Dulcolax suppository Tachycardia Most likely secondary for volume contraction after surgery IV fluid VS,Fishbone, I+O VS, Fishbone, I+O Laboratory Tests 10/12/18 06:14 Red Blood Count 3.67 L, Mean Corpuscular Volume 92.6, Mean Corpuscular Hemoglobin 30.0, Mean Corpuscular Hemoglobin Concent 32.4, Red Cell Distribution Width 12.6, Calcium Level 8.7 Vital Signs Date Time Temp Pulse Resp B/P (MAP) Pulse Ox O2 Delivery O2 Flow Rate FiO2 10/12/18 15:10 18 10/12/18 14:00 101.2 104 153/87 (109) 95 10/11/18 17:51 2.0 10/10/18 22:45 Room Air I&O- Last 24 Hours up to 6 AM 10/12/18 06:00 Intake Total 3780 ml Output Total 2790 ml Balance 990 ml MORRIS NEWTON DO Oct 12, 2018 20:40
[2018-10-12] MEDS ORDERED: LEVEMIR (INSULIN DETEMIR) 1 UNITS/0.01ML SC SCH (21:00)
[2018-10-12] MEDS: NS 1,000 ML IV SCH (21:33)
[2018-10-12 22:00] VITALS: BP 144/85
[2018-10-13] MEDS: VANCOMYCIN HCL 1,000 MG, VIAL MATE ADAPTER 1 EACH in D5W 250 ML IV SCH ×2 (04:13→14:54)
[2018-10-13] MEDS: NS 1,000 ML IV SCH ×4 (04:14→23:10)
[2018-10-13 06:00] VITALS: BP 133/80
[2018-10-13 06:35] LABS: HEMATOCRIT 29.5 % (42.0-52.0); HEMOGLOBIN 9.7 g/dl (13.5-17.5); MEAN CORPUSCULAR HEMOGLOBIN 29.7 pg (27.0-33.0); MEAN CORPUSCULAR HGB CONC 32.9 g/dl (32.0-36.5); MEAN CORPUSCULAR VOLUME 90.2 fl (80.0-96.0); PLATELET COUNT, AUTOMATED 179 10^3/uL (150-450); RED BLOOD COUNT 3.27 10^6/uL (4.30-6.10); WHITE BLOOD COUNT 4.9 10^3/uL (4.0-10.0)
[2018-10-13] MEDS: ANEXSIA, NORCO 7.5MG/325MG TABLET(HYDROCODONE/APAP) PO PRN ×3 (06:45→22:28)
[2018-10-13 06:59] LABS: BLOOD UREA NITROGEN 11 MG/DL (7-18); CALCIUM LEVEL 8.9 MG/DL (8.5-10.1); CARBON DIOXIDE LEVEL 31 MEQ/L (21-32); CHLORIDE LEVEL 100 MEQ/L (98-107); GLOMERULAR FILTRATION RATE > 60.0 (>56); GLUCOSE, FASTING 183 MG/DL (70-100); POTASSIUM SERUM 3.8 MEQ/L (3.5-5.1); SODIUM LEVEL 135 MEQ/L (136-145)
[2018-10-13 07:19] LABS: ERYTHROCYTE SEDIMENTATION RATE 82 mm/hr (0-20)
[2018-10-13] MEDS ORDERED: MAGNESIUM CITRATE 300 ML BTL PO ONE ×2 (08:00)
[2018-10-13] MEDS: SENOKOT S TAB PO SCH ×2 (08:57→21:04)
[2018-10-13] MEDS: TAMSULOSIN 0.4 MG CAP PO SCH (08:57)
[2018-10-13] MEDS: MIRALAX *UNIT DOSE* 17GM PACKET PO SCH ×2 (08:59→21:04)
[2018-10-13] MEDS: MOM 30ML SUSPENSION UDC PO SCH (08:59)
[2018-10-13] MEDS: amLODIPine 10 MG TAB PO SCH (08:59)
[2018-10-13] MEDS: HumaLOG INSULIN (NovoLOG) PER UNIT SC SCH ×4 (09:00→21:05)
[2018-10-13] MEDS ORDERED: MAGNESIUM CITRATE 300 ML BTL PO PRN (11:00)
[2018-10-13] MEDS ORDERED: VANCOMYCIN HCL 1,000 MG, VIAL MATE ADAPTER 1 EACH in D5W 250 ML IV ONE (13:00)
[2018-10-13] MEDS ORDERED: LIDOCAINE 1% MDV 20ML VIAL As Ordered ONE (13:41)
[2018-10-13 15:00] VITALS: BP 155/93
[2018-10-13] MEDS ORDERED: SODIUM CHLORIDE 0.9% INJ 10 ML SYR IV PRN (15:00)
--- NOTE | 2018-10-13 16:51 | IPNPDOC ---
Text Note Date of Service The patient was seen on 10/13/18. NOTE Subjective: Patient continues to have the right hip discomfort. Drainage in p lace, serosanguineous discharge less than yesterday. Objective: General: NAD HEENT: PERRLA, EOMI, no JVD CV: S1 and S2, regular heart rate Abdomen: Nontender, moderately distended Extremities: Right hip drainage in place, serosanguineous discharge Assessment and plan Patient is 57 years old male with past medical history of type 2 diabetes, gastric bypass, history of GI bleed, hypertension, history of ischemic stroke in 2018 with stent placement in basilar artery, sleep apnea, [place] present to the hospital with inflamed hip, orthopedic team proceeded with Right total hip replacement open irrigation debridement, synovectomy, right total hip replacement exchange of femoral head and polyethylene liner, insertion of antibiotic beads and vancomycin powder within the wound, Insertion of a flat J- vac drain superficially. Wound culture positive for staph aureus, await sensitivity. Repeated Blood culture for past 24 hours was negative. Antibiotic treatment with IV ceftriaxone and IV vancomycin started. Await ID consult Status post repeated right hip arthroplasty Repeated blood culture negative for 24 hours Sedimentation rate 82 Continue antibiotics Follows by orthopedic team Pain management Anticoagulation per orthopedic team Hypertension Continue home meds Type 2 diabetes -On sliding scale insulin Restarted basal insulin Levemir 30 units daily at bedtime for now Patient's home dose was 60 units of Lantus. However his blood glucose level during this hospitalization was around 200. Continue to monitor blood glucose level Hyperlipidemia twice weekly injections of repatha. Hold it for now History of CVA Patient was not on the blood thinners due to multiple episodes of upper GI bleed Follow-up with neurologist. Constipation Dulcolax suppository Miralax Tachycardia resolved Most likely secondary for volume contraction after surgery IV fluid VS,Fishbone, I+O VS, Fishbone, I+O Laboratory Tests 10/13/18 05:23 Red Blood Count 3.27 L, Mean Corpuscular Volume 90.2, Mean Corpuscular Hemoglobin 29.7, Mean Corpuscular Hemoglobin Concent 32.9, Red Cell Distribution Width 12.2, Calcium Level 8.9 Vital Signs Date Time Temp Pulse Resp B/P (MAP) Pulse Ox O2 Delivery O2 Flow Rate FiO2 10/13/18 15:24 18 10/13/18 15:00 98.6 101 155/93 (113) 97 10/11/18 17:51 2.0 10/10/18 22:45 Room Air I&O- Last 24 Hours up to 6 AM 10/13/18 06:00 Intake Total 1885 ml Output Total 1160 ml Balance 725 ml MORRIS NEWTON DO Oct 13, 2018 16:51
--- NOTE | 2018-10-13 16:57 | REP ---
Procedure: PICC line insertion with aMrcos The procedure was performed under the direct supervision of Dr. See. The risks and benefits of the procedure were explained to the patient and informed consent was obtained. The right basilic vein was localized using ultrasound guidance. The skin was prepped and draped in a sterile fashion. 2% lidocaine was used as a local anesthetic. Using ultrasound guidance the basilic vein was cannulated and a 0.018 guidewire was inserted and advanced to the SVC using fluoroscopic guidance. The needle was removed and a 4.5 Mauritian dilator and peel-away sheath was inserted over the guide wire. A 4.5 Mauritian single lumen catheter was cut to length of 39 cm. The dilator was removed and the catheter was inserted over the guide wire with the tip ending in the SVC. The peel-away sheath was removed and the catheter was flushed with heparinized saline as per Hospital protocol. The catheter was affixed to the skin and a sterile dressing was applied. The patient tolerated the procedure well and there were no immediate complications. 0.2 minutes of fluoro time was utilized for this procedure. Reviewed by TRACY Grijalva 10/13/2018 03:55 P Electronically Signed by Josue See MD 10/13/2018 04:48 P
[2018-10-13] MEDS: SODIUM CHLORIDE 0.9% INJ 10 ML SYR IV SCH (17:19)
[2018-10-13] MEDS: NAFCILLIN SOD 2 GM in D5W MINI-BAG PLUS 50 ML IV SCH ×2 (17:19→20:26)
--- NOTE | 2018-10-13 19:33 | CR ---
DATE OF CONSULTATION: 10/13/2018 REASON FOR CONSULTATION: Infected right prosthetic hip. CONSULTING PHYSICIAN: Dalila Yeung from orthopedic group. HISTORY OF PRESENT ILLNESS: This is a 57-year-old male with a pertinent past medical history of right total hip replacement on 09/14/2018. Fifteen days after the surgery, when he got his staple removed, he noticed that he had a serosanguineous drainage from the site, which persisted until 10/07/2018. He then noticed after the drainage stopped, his right hip became significantly swollen and very painful to simple touch. He was evaluated by [facility], who originally said that this was normal; but because he had difficulty ambulating, feeling very weak, and was having fevers at home, on the morning of 10/10/2018, he went to [facility] for further evaluation. At [facility], he was noted to have leukocytosis and was febrile and was transferred to [facility] for a right hip washout by Dr. Villegas. The procedure was done on 10/11/2018, and he had a right total hip replacement open irrigation/debridement with synovectomy and a right total hip replacement exchange for the femoral head with a polyethylene liner. He also had an insertion of antibiotic beads and vancomycin powder within the wound as well as a flat J-VAC drain placed superficially. The patient was evaluated this afternoon and states that his pain has gotten a little bit better but is still persistent as well as the swelling has gotten a little better as well. He noticed that the erythema on the side of his hip is not as significant but is still present as well. He has no other complaint at this time. PAST MEDICAL HISTORY: 1. Type 2 diabetes. 2. Hypertension. 3. History of CVA in January 2018. 4. Coronary artery disease. 5. Hyperlipidemia. 6. Sleep apnea. 7. History of myocardial infarction in 2014, question. 8. History of gastrojejunal ulcer. PAST SURGICAL HISTORY: 1. Right total hip arthroplasty. 2. Right and left inguinal hernia repair. 3. Coronary artery stenting in 2012. 4. Lithotripsy 2012. 5. Extracorporeal shock wave lithotripsy (ESWL) in 2011 and 2013. 6. Left and right carpal tunnel release in 2013 and 2014. 7. Gastric bypass in 2015. 8. Cardiac stent in 2018. SOCIAL HISTORY: A nonsmoker. Denies any elicit drug use or IV drug use, and denies any alcohol use. Currently, lives at home with , son, and daughter and his dog. FAMILY HISTORY: Noncontributory. ALLERGIES: Not allergic to any antibiotics. Please see above for the remaining allergies. REVIEW OF SYSTEMS: GENERAL: Denies recent weight changes, night sweats, hemoptysis, but does admit to fevers and chills. HEENT: Denies headache, lightheadedness, dizziness, vision changes, hearing loss, or sore throat. CARDIOVASCULAR: Denies chest pain, palpitations, orthopopnia, or lower extremity edema. RESPIRATORY: Denies shortness of breath, wheezing, coughing, or trouble breathing. GASTROINTESTINAL: Denies nausea, vomiting, diarrhea, constipation, or bloody stool. MUSCULOSKELETAL: Admits to right hip pain, swelling, erythema, tenderness, but no discharge. NEUROLOGIC: Denies numbness, tingling, focal weakness, or syncope. PHYSICAL EXAMINATION: VITALS: Temperature 98.6, pulse 101, respirations 18, blood pressure 155/93 (113), pulse oximetry 97% on room air. GENERAL: This is a very pleasant 57-year-old male, who does not appear in any acute distress, appropriately answering questions, sitting up in the bed. HEENT: Atraumatic, normocephalic. Pupils are equal, round, and reactive. Fair dentition. No jugular venous distention (JVD) noted. CARDIAC: Regular rate and rhythm. Normal S1, S2 sounds. No audible murmurs, rubs, or gallops. PULMONARY: Clear to auscultate bilaterally. No audible wheezing, rhonchi, or rales. ABDOMEN: Positive bowel sounds in all four quadrants. No tenderness on palpation. Nondistended. EXTREMITIES: No lower extremity edema. Lateral right hip, significant swelling and erythema can be noted that is 10 x 5 cm. There is slight discharge noted at the dressing site at the very tip. No foul smelling. Slightly tender to touch, but patient states it has improved. NEUROLOGIC: Alert and oriented times three. LABORATORY EXAM: WBC 4.9, hemoglobin 9.7, hematocrit 29.5, platelets 179. Chemistry: Sodium 135, potassium 3.8, chloride 100, carbon dioxide 31, anion gap 4, BUN 11, creatinine 0.70, GFR is greater than 60, fasting glucose 183, CRP 18.80. IMAGING: Hip x-ray showed status post incision and drainage of the right hip. MICROBIOLOGY: Blood cultures times two negative for growth. Hip replacement wound culture is positive for MSSA sensitive to nafcillin. ASSESSMENT AND PLAN: This is a very pleasant 57-year-old male with a pertinent past medical history of a recent right total hip replacement on 09/14/2018, who was admitted for right hip arthroplasty washout. These are our following recommendations: Prosthetic hip infection, status post right hip replacement. He had antibiotic beads and vancomycin powder placed on his washout by Dr. Villegas on 10/11/2018. We will discontinue his vancomycin and ceftriaxone, and he will need 6 weeks of IV antibiotics with nafcillin 12 grams every 24 hours continuous upon discharge, which end date will be 11/23/2018. He will also adjunct this therapy with rifampin 300 mg twice a day by mouth. He is to followup with Dr. Myles in about 2-3 weeks upon discharge from the hospital. There is a possibility that he will go to rehabilitation upon discharge from the hospital. He can continue the IV antibiotics once he is there. He will need IV antibiotics for at least 6 weeks before he will transition to oral antibiotics for 6 months, but that determination will be made after followup with Dr. Myles outpatient. Thank you for this consultation. We will continue to follow the patient while he is admitted. ADDENDUM: Patient was seen. He is a 57-year-old gentleman with a history of morbid obesity, diabetes, status post gastric bypass, admitted for prosthetic joint infection after right total hip replacement that he had done 3 weeks ago. He was taken to the operating room (OR) on 10/12/2018. Wound cultures are positive for methicillin-sensitive Staphylococcus aureus (MSSA). The patient has been on intravenous (IV) vancomycin and ceftriaxone. Antibiotics will be de-escalated to nafcillin 2 grams every 4 hours, which could be given as a 12 gram continuous infusion for 6 weeks postoperatively along with rifampin at 300 mg by mouth twice a day. The patient will need antibiotics IV for 6 weeks, until 11/23/2018, followed by oral antibiotics. Peripherally inserted central catheter (PICC) line has been placed. Case has been discussed with Dr. Villegas, who agrees with the plan. 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 Villegas; and, therefore, acute rehabilitation may be an option. At this point, we will consult patient and family services (PFS) for placement or home IV antibiotics. Addendum dictated: PETERSON 10/13/2018 1927 Addendum transcribed: nancy 10/13/2018 [id number]
[2018-10-13] MEDS: LEVEMIR (INSULIN DETEMIR) 1 UNITS/0.01ML SC SCH (21:06)
[2018-10-13 22:00] VITALS: BP 147/84
[2018-10-14] MEDS: NAFCILLIN SOD 2 GM in D5W MINI-BAG PLUS 50 ML IV SCH ×4 (00:09→12:00)
[2018-10-14] MEDS: SODIUM CHLORIDE 0.9% INJ 10 ML SYR IV SCH ×2 (05:40→17:52)
[2018-10-14] MEDS ORDERED: MAGNESIUM CITRATE 300 ML BTL PO ONE (05:45)
[2018-10-14] MEDS: NS 1,000 ML IV SCH (05:50)
[2018-10-14 06:00] VITALS: BP 154/82
[2018-10-14 06:53] LABS: HEMOGLOBIN 9.3 g/dl (13.5-17.5); MEAN CORPUSCULAR HGB CONC 33.2 g/dl (32.0-36.5); MEAN CORPUSCULAR VOLUME 87.2 fl (80.0-96.0); PLATELET COUNT, AUTOMATED 187 10^3/uL (150-450); RED BLOOD COUNT 3.21 10^6/uL (4.30-6.10); WHITE BLOOD COUNT 4.6 10^3/uL (4.0-10.0)
[2018-10-14 07:18] LABS: BLOOD UREA NITROGEN 9 MG/DL (7-18); CALCIUM LEVEL 8.5 MG/DL (8.5-10.1); CARBON DIOXIDE LEVEL 32 MEQ/L (21-32); CHLORIDE LEVEL 103 MEQ/L (98-107); CREATININE FOR GFR 0.67 MG/DL (0.70-1.30); GLOMERULAR FILTRATION RATE > 60.0 (>56); GLUCOSE, FASTING 160 MG/DL (70-100); POTASSIUM SERUM 3.8 MEQ/L (3.5-5.1); SODIUM LEVEL 140 MEQ/L (136-145)
[2018-10-14 08:03] LABS: ERYTHROCYTE SEDIMENTATION RATE > 140 mm/hr (0-20)
[2018-10-14] MEDS: MIRALAX *UNIT DOSE* 17GM PACKET PO SCH ×3 (08:32→20:43)
[2018-10-14] MEDS: TAMSULOSIN 0.4 MG CAP PO SCH (08:32)
[2018-10-14] MEDS: SENOKOT S TAB PO SCH ×2 (08:32→20:42)
[2018-10-14] MEDS: MOM 30ML SUSPENSION UDC PO SCH (08:32)
[2018-10-14] MEDS: amLODIPine 10 MG TAB PO SCH (08:33)
[2018-10-14] MEDS: HumaLOG INSULIN (NovoLOG) PER UNIT SC SCH ×4 (08:34→20:43)
[2018-10-14] MEDS: ANEXSIA, NORCO 7.5MG/325MG TABLET(HYDROCODONE/APAP) PO PRN ×2 (08:36→20:36)
[2018-10-14] MEDS ORDERED: FLEET ENEMA PR PRN (08:45)
[2018-10-14] MEDS: BISACODYL 10 MG SUPP PR SCH ×3 (09:00→20:43)
--- NOTE | 2018-10-14 12:18 | IPNPDOC ---
Subjective Date Seen The patient was seen on 10/14/18. Subjective Chief Complaint/HPI Physical complaint of some pain of the right hip. On ambulation, PT, OT in progress General: Denies: ROS Unobtainable, Chills, Night Sweats, Fatigue, Malaise, Normal Appetite, Other Symptoms Eyes: Denies: Pain, Vision change, Conjunctivae inflammation, Eyelid inflammation, Redness, Other ENT: Denies: Head Aches, Ear Pain, Dysphagia, Sinus Congestion, Post Nasal Drip, Sore Throat, Epistaxis, Other Symptoms Skin: Denies: Rash, Lesions, Jaundice, Bruising, Itching, Dry, Breakdown, Nail Changes, Other Pulmonary: Denies: Dyspnea, Cough, Pleuritic Chest Pain, Other Symptoms Cardiovascular: Denies: Chest Pain, Palpitations, Orthopnea, Paroxysmal Noc. Dyspnea, Edema, Lt Headedness, Other Symptoms Gastrointestinal: Denies: Nausea, Vomiting, Abdominal Pain, Diarrhea, Constipation, Melena, Hematochezia, Other Symptoms Genitourinary: Denies: Dysuria, Frequency, Incontinence, Hematuria, Retention, Other Symptoms Musculoskeletal: Reports: Other Symptoms (and right hip pain) Neurological: Denies: Weakness, Numbness, Incoordination, Change in speech, Confusion, Seizures, Other Symptoms Objective Physical Examination General Exam: Positive: Alert, No Acute Distress Eye Exam: Positive: PERRLA, Conjunctiva & lids normal ENT Exam: Positive: Atraumatic, Mucous membr. moist/pink Neck Exam: Positive: Supple Chest Exam: Positive: Clear to auscultation, Normal air movement Heart Exam: Positive: Rate Normal, Normal S1, Normal S2 Abdomen Exam: Positive: Normal bowel sounds, Soft Skin Exam: Positive: Nl turgor and temperature Neuro Exam: Positive: Strength at 5/5 X4 ext, Sensation Intact Assessment /Plan Problems (1) Postoperative wound infection of right hip Status: Acute (2) HTN (hypertension) Status: Chronic Plan/VTE VTE Prophylaxis Ordered?: No VTE Exclusion Pharmacological: Active Bleeding Plan Assessment and plan Patient is 57 years old male with past medical history of type 2 diabetes, gastric bypass, history of GI bleed, hypertension, history of ischemic stroke in 2018 with stent placement in basilar artery, sleep apnea, [place] present to the hospital with inflamed hip, orthopedic team proceeded with Right total hip replacement open irrigation debridement, synovectomy, right total hip replacement exchange of femoral head and polyethylene liner, insertion of antibiotic beads and vancomycin powder within the wound, Insertion of a flat J- vac drain superficially. Wound culture positive for staph aureus, await sensitivity. Repeated Blood culture for past 24 hours was negative. Patient was seen by infectious disease yesterday Antibiotics changed to nafcillin 2 g IV every 4 hours Status post repeated right hip arthroplasty Repeated blood culture negative for 24 hours Sedimentation rate 82 Continue continue nafcillin Follows by orthopedic team Pain management Anticoagulation per orthopedic team Hypertension Continue home meds Type 2 diabetes -On sliding scale insulin Restarted basal insulin Levemir 30 units daily at bedtime for now Patient's home dose was 60 units of Lantus. However his blood glucose level during this hospitalization was around 200. Continue to monitor blood glucose level Hyperlipidemia twice weekly injections of repatha. Hold it for now History of CVA Patient was not on the blood thinners due to multiple episodes of upper GI bleed Follow-up with neurologist. Constipation Dulcolax suppository Miralax Physical therapy and occupational therapy in progress VS, I&O, 24H, Celeste Vital Signs/I&O Vital Signs Date Time Temp Pulse Resp B/P (MAP) Pulse Ox O2 Delivery O2 Flow Rate FiO2 10/14/18 09:06 18 10/14/18 08:33 79 154/82 10/14/18 06:00 98.4 93 10/11/18 17:51 2.0 10/10/18 22:45 Room Air I&O- Last 24 Hours up to 6 AM 10/14/18 06:00 Intake Total 3140 ml Output Total 1145 ml Balance 1995 ml Laboratory Data 24H LABS Laboratory Tests 2 10/13/18 16:58: Bedside Glucose (Misc Panel) 248H 10/13/18 20:24: Bedside Glucose (Misc Panel) 392H 10/14/18 06:05: Nucleated Red Blood Cells % (auto) 0.0, Erythrocyte Sedimentation Rate > 140H, Anion Gap 5L, Glomerular Filtration Rate > 60.0, Blood Urea Nitrogen 9, Creatinine 0.67L, Sodium Level 140, Potassium Level 3.8, Chloride Level 103, Carbon Dioxide Level 32, Calcium Level 8.5, C-Reactive Protein, Quantitative 10.70H 10/14/18 11:50: Bedside Glucose (Misc Panel) 210H CBC/BMP Laboratory Tests 10/14/18 06:05 Red Blood Count 3.21 L, Mean Corpuscular Volume 87.2, Mean Corpuscular Hemoglobin 29.0, Mean Corpuscular Hemoglobin Concent 33.2, Red Cell Distribution Width 12.1, Calcium Level 8.5 Microbiology Microbiology 10/12/18 Blood Culture - Preliminary, Resulted No Growth after 48 hours. All Specime... 10/10/18 Blood Culture - Preliminary, Resulted No Growth after 72 hours. All specime... 10/11/18 Surgical Biopsy Culture - Final, Complete Staphylococcus Aureus 10/11/18 Gram Stain - Final, Complete 10/11/18 Wound Culture - Final, Complete Staphylococcus Aureus 10/11/18 Anaerobic Culture - Final, Complete NIKI TROTTER MD Oct 14, 2018 12:18
[2018-10-14 14:00] VITALS: BP 157/86
[2018-10-14 19:47] VITALS: BP 163/88
[2018-10-14] MEDS: LEVEMIR (INSULIN DETEMIR) 1 UNITS/0.01ML SC SCH (20:43)
[2018-10-14 22:00] VITALS: BP 163/88
[2018-10-15] MEDS: ANEXSIA, NORCO 7.5MG/325MG TABLET(HYDROCODONE/APAP) PO PRN ×3 (03:44→20:29)
[2018-10-15] MEDS: SODIUM CHLORIDE 0.9% INJ 10 ML SYR IV SCH ×2 (05:10→16:55)
[2018-10-15 05:12] VITALS: BP 156/90
[2018-10-15] MEDS ORDERED: HYDR-3713 PO (07:09)
[2018-10-15] MEDS: TAMSULOSIN 0.4 MG CAP PO SCH (08:21)
[2018-10-15] MEDS: HumaLOG INSULIN (NovoLOG) PER UNIT SC SCH ×4 (08:21→20:29)
[2018-10-15] MEDS: SENOKOT S TAB PO SCH ×2 (08:21→20:29)
[2018-10-15] MEDS: amLODIPine 10 MG TAB PO SCH (08:21)
[2018-10-15] MEDS: MIRALAX *UNIT DOSE* 17GM PACKET PO SCH ×3 (08:22→20:28)
[2018-10-15] MEDS: BISACODYL 10 MG SUPP PR SCH ×2 (08:22→20:29)
[2018-10-15] MEDS: MOM 30ML SUSPENSION UDC PO SCH (08:22)
--- NOTE | 2018-10-15 12:42 | IPNPDOC ---
Subjective Date Seen The patient was seen on 10/15/18. Subjective Chief Complaint/HPI Patient is comfortable, awaiting transfer to subacute area facility General: Denies: ROS Unobtainable, Chills, Night Sweats, Fatigue, Malaise, Normal Appetite, Other Symptoms Constitutional: Denies: Chills, Fever, Malaise, Night Sweats, Weakness, Fatigue, Weight Loss, Lethargy, Other Eyes: Denies: Pain, Vision change, Conjunctivae inflammation, Eyelid inflammation, Redness, Other ENT: Denies: Head Aches, Ear Pain, Dysphagia, Sinus Congestion, Post Nasal Drip, Sore Throat, Epistaxis, Other Symptoms Skin: Denies: Rash, Lesions, Jaundice, Bruising, Itching, Dry, Breakdown, Nail Changes, Other Pulmonary: Denies: Dyspnea, Cough, Pleuritic Chest Pain, Other Symptoms Cardiovascular: Denies: Chest Pain, Palpitations, Orthopnea, Paroxysmal Noc. Dyspnea, Edema, Lt Headedness, Other Symptoms Gastrointestinal: Denies: Nausea, Vomiting, Abdominal Pain, Diarrhea, Constipation, Melena, Hematochezia, Other Symptoms Musculoskeletal: Denies: Neck Pain, Back Pain, Shoulder Pain, Arm Pain, Hand Pain, Leg Pain, Foot Pain, Joint Pain, Muscle Pain, Spasms, Other Symptoms Neurological: Denies: Weakness, Numbness, Incoordination, Change in speech, Confusion, Seizures, Other Symptoms Psych: Denies: Mood Normal, Anxiety, Depression, Memory Issues, Thoughts of Self Harm, Anger, Thoughts of Harming Other, Other Psych Objective Physical Examination General Exam: Positive: Alert, No Acute Distress Eye Exam: Positive: PERRLA, Conjunctiva & lids normal ENT Exam: Positive: Atraumatic, Mucous membr. moist/pink Neck Exam: Positive: Supple Chest Exam: Positive: Clear to auscultation, Normal air movement Heart Exam: Positive: Rate Normal, Normal S1, Normal S2 Abdomen Exam: Positive: Normal bowel sounds, Soft Skin Exam: Positive: Nl turgor and temperature Neuro Exam: Positive: Strength at 5/5 X4 ext, Sensation Intact Assessment /Plan Problems (1) Postoperative wound infection of right hip Status: Acute (2) HTN (hypertension) Status: Chronic Plan/VTE VTE Prophylaxis Ordered?: No VTE Exclusion Pharmacological: Active Bleeding Plan Patient is 57 years old male with past medical history of type 2 diabetes, gastric bypass, history of GI bleed, hypertension, history of ischemic stroke in 2018 with stent placement in basilar artery, sleep apnea, [place] present to the hospital with inflamed hip, orthopedic team proceeded with Right total hip replacement open irrigation debridement, synovectomy, right total hip replacement exchange of femoral head and polyethylene liner, insertion of antibiotic beads and vancomycin powder within the wound, Insertion of a flat J- vac drain superficially. Wound culture positive for staph aureus, await sensitivity. Repeated Blood culture for past 24 hours was negative. Patient was seen by infectious disease yesterday Antibiotics changed to nafcillin 2 g IV every 4 hours Status post repeated right hip arthroplasty Repeated blood culture negative for 24 hours Sedimentation rate 82 Continue continue nafcillin Follows by orthopedic team Pain management Anticoagulation per orthopedic team Hypertension Continue home meds Type 2 diabetes -On sliding scale insulin Restarted basal insulin Levemir 30 units daily at bedtime for now Patient's home dose was 60 units of Lantus. However his blood glucose level during this hospitalization was around 200. Continue to monitor blood glucose level Hyperlipidemia twice weekly injections of repatha. Hold it for now History of CVA Patient was not on the blood thinners due to multiple episodes of upper GI bleed Follow-up with neurologist. Constipation Dulcolax suppository Miralax Physical therapy and occupational therapy in progress Awaiting placement in subacute rehabilitation facility VS, I&O, 24H, Celeste Vital Signs/I&O Vital Signs Date Time Temp Pulse Resp B/P (MAP) Pulse Ox O2 Delivery O2 Flow Rate FiO2 10/15/18 08:21 75 156/90 10/15/18 05:12 98.0 18 95 10/11/18 17:51 2.0 10/10/18 22:45 Room Air I&O- Last 24 Hours up to 6 AM 10/15/18 05:59 Intake Total 3210 ml Output Total 60 ml Balance 3150 ml Laboratory Data 24H LABS Laboratory Tests 2 10/14/18 16:27: Bedside Glucose (Misc Panel) 340H 10/14/18 19:45: Bedside Glucose (Misc Panel) 241H 10/15/18 03:32: Bedside Glucose (Misc Panel) 157H 10/15/18 07:50: Bedside Glucose (Misc Panel) 177H 10/15/18 11:34: Bedside Glucose (Misc Panel) 262H Microbiology Microbiology 10/12/18 Blood Culture - Preliminary, Resulted No Growth after 72 hours. All specime... 10/10/18 Blood Culture - Preliminary, Resulted No Growth after 72 hours. All specime... 10/11/18 Surgical Biopsy Culture - Final, Complete Staphylococcus Aureus 10/11/18 Gram Stain - Final, Complete 10/11/18 Wound Culture - Final, Complete Staphylococcus Aureus 10/11/18 Anaerobic Culture - Final, Complete NIKI TROTTER MD Oct 15, 2018 12:42
[2018-10-15 14:00] VITALS: BP 163/96
[2018-10-15 20:05] VITALS: BP 151/96
[2018-10-15] MEDS: LEVEMIR (INSULIN DETEMIR) 1 UNITS/0.01ML SC SCH (20:30)
[2018-10-16] MEDS: ANEXSIA, NORCO 7.5MG/325MG TABLET(HYDROCODONE/APAP) PO PRN ×2 (03:19→14:18)
[2018-10-16 05:44] VITALS: BP 152/70
[2018-10-16] MEDS: SODIUM CHLORIDE 0.9% INJ 10 ML SYR IV SCH ×2 (05:45→18:07)
[2018-10-16 06:45] LABS: BASO % 0.5 % (0.0-1.0); EOS # 0.3 10^3/uL (0.0-0.5); EOS % 5.6 % (0.0-3.0); HEMOGLOBIN 10.8 g/dl (13.5-17.5); LYMPH % 17.5 % (24.0-44.0); MEAN CORPUSCULAR HEMOGLOBIN 28.6 pg (27.0-33.0); MEAN CORPUSCULAR HGB CONC 32.7 g/dl (32.0-36.5); MEAN CORPUSCULAR VOLUME 87.5 fl (80.0-96.0); MONO # 0.8 10^3/uL (0.0-0.8); NEUTROPHILS # 3.6 10^3/uL (1.5-8.5); NEUTROPHILS % 62.4 % (36.0-66.0); PLATELET COUNT, AUTOMATED 260 10^3/uL (150-450); RED BLOOD COUNT 3.77 10^6/uL (4.30-6.10); WHITE BLOOD COUNT 5.8 10^3/uL (4.0-10.0)
[2018-10-16 07:14] LABS: ALBUMIN 2.6 GM/DL (3.2-5.2); ALT/SGPT 11 U/L (12-78); BILIRUBIN,TOTAL 0.4 MG/DL (0.2-1.0); BLOOD UREA NITROGEN 7 MG/DL (7-18); CALCIUM LEVEL 9.2 MG/DL (8.5-10.1); CARBON DIOXIDE LEVEL 29 MEQ/L (21-32); CHLORIDE LEVEL 103 MEQ/L (98-107); CREATININE FOR GFR 0.72 MG/DL (0.70-1.30); GLOMERULAR FILTRATION RATE > 60.0 (>56); GLUCOSE, FASTING 176 MG/DL (70-100); POTASSIUM SERUM 3.4 MEQ/L (3.5-5.1); SODIUM LEVEL 137 MEQ/L (136-145); TOTAL PROTEIN 6.9 GM/DL (6.4-8.2)
[2018-10-16] MEDS ORDERED: POTASSIUM CHLORIDE 10 MEQ SR TABLET PO ONE (08:00)
[2018-10-16] MEDS: BISACODYL 10 MG SUPP PR SCH ×3 (09:00→20:20)
[2018-10-16] MEDS: MIRALAX *UNIT DOSE* 17GM PACKET PO SCH ×3 (09:00→20:20)
[2018-10-16] MEDS: MOM 30ML SUSPENSION UDC PO SCH (09:00)
[2018-10-16] MEDS: SENOKOT S TAB PO SCH ×2 (09:00→20:20)
[2018-10-16] MEDS: HumaLOG INSULIN (NovoLOG) PER UNIT SC SCH ×4 (09:42→20:19)
[2018-10-16] MEDS: TAMSULOSIN 0.4 MG CAP PO SCH (09:42)
[2018-10-16] MEDS: amLODIPine 10 MG TAB PO SCH (09:44)
--- NOTE | 2018-10-16 12:27 | IPNPDOC ---
Subjective Date Seen The patient was seen on 10/16/18. Subjective Chief Complaint/HPI Patient comfortable offers no new complaints at the present time, awaiting placement in the subacute rehabilitation General: Denies: ROS Unobtainable, Chills, Night Sweats, Fatigue, Malaise, Normal Appetite, Other Symptoms Constitutional: Denies: Chills, Fever, Malaise, Night Sweats, Weakness, Fatigue , Weight Loss, Lethargy, Other Eyes: Denies: Pain, Vision change, Conjunctivae inflammation, Eyelid inflammation, Redness, Other ENT: Denies: Head Aches, Ear Pain, Dysphagia, Sinus Congestion, Post Nasal Drip, Sore Throat, Epistaxis, Other Symptoms Skin: Denies: Rash, Lesions, Jaundice, Bruising, Itching, Dry, Breakdown, Nail Changes, Other Pulmonary: Denies: Dyspnea, Cough, Pleuritic Chest Pain, Other Symptoms Musculoskeletal: Denies: Neck Pain, Back Pain, Shoulder Pain, Arm Pain, Hand Pain, Leg Pain, Foot Pain, Joint Pain, Muscle Pain, Spasms, Other Symptoms Neurological: Denies: Weakness, Numbness, Incoordination, Change in speech, Confusion, Seizures, Other Symptoms Psych: Denies: Mood Normal, Anxiety, Depression, Memory Issues, Thoughts of Self Harm, Anger, Thoughts of Harming Other, Other Psych Objective Physical Examination General Exam: Positive: Alert, No Acute Distress Eye Exam: Positive: PERRLA, Conjunctiva & lids normal ENT Exam: Positive: Atraumatic, Mucous membr. moist/pink Neck Exam: Positive: Supple Chest Exam: Positive: Clear to auscultation, Normal air movement Heart Exam: Positive: Rate Normal, Normal S1, Normal S2 Abdomen Exam: Positive: Normal bowel sounds, Soft Skin Exam: Positive: Nl turgor and temperature Neuro Exam: Positive: Strength at 5/5 X4 ext, Sensation Intact Assessment /Plan Problems (1) Postoperative wound infection of right hip Status: Acute Problem Text: PT, OT in progress Awaiting placement in subacute rehabilitation was the bed is available (2) HTN (hypertension) Status: Chronic Problem Text: Under well control Continue present meds (3) Hypokalemia Status: Acute Problem Text: Potassium supplement given Repeat labs in a.m. Plan/VTE VTE Prophylaxis Ordered?: No VTE Exclusion Pharmacological: Active Bleeding VS, I&O, 24H, Fishbone Vital Signs/I&O Vital Signs Date Time Temp Pulse Resp B/P (MAP) Pulse Ox O2 Delivery O2 Flow Rate FiO2 10/16/18 09:44 91 158/80 10/16/18 05:44 97.4 16 98 10/11/18 17:51 2.0 10/10/18 22:45 Room Air I&O- Last 24 Hours up to 6 AM 10/16/18 06:00 Intake Total 1050 ml Output Total 100 ml Balance 950 ml Laboratory Data 24H LABS Laboratory Tests 2 10/15/18 16:22: Bedside Glucose (Misc Panel) 173H 10/15/18 20:03: Bedside Glucose (Misc Panel) 209H 10/16/18 05:08: Immature Granulocyte % (Auto) 1.0, White Blood Count 5.8, Red Blood Count 3.77L, Hemoglobin 10.8L, Hematocrit 33.0L, Mean Corpuscular Volume 87.5, Mean Jake uscular Hemoglobin 28.6, Mean Corpuscular Hemoglobin Concent 32.7, Red Cell Distribution Width 12.4, Platelet Count 260, Neutrophils (%) (Auto) 62.4, Lymphocytes (%) (Auto) 17.5L, Monocytes (%) (Auto) 13.0H, Eosinophils (%) (Auto) 5.6H, Basophils (%) (Auto) 0.5, Neutrophils # (Auto) 3.6, Lymphocytes # (Auto) 1.0L, Monocytes # (Auto) 0.8, Eosinophils # (Auto) 0.3, Basophils # (Auto) 0.0, Nucleated Red Blood Cells % (auto) 0.0, Anion Gap 5L, Glomerular Filtration Rate > 60.0, Blood Urea Nitrogen 7, Creatinine 0.72, Sodium Level 137, Potassium Level 3.4L, Chloride Level 103, Carbon Dioxide Level 29, Calcium Level 9.2, Aspartate Amino Transf (AST/SGOT) 14, Alanine Aminotransferase (ALT/SGPT) 11L, Alkaline Phosphatase 94, Total Bilirubin 0.4, Total Protein 6.9, Albumin 2.6L, Albumin/Globulin Ratio 0.60L 10/16/18 11:52: Bedside Glucose (Misc Panel) 240H CBC/BMP Laboratory Tests 10/16/18 05:08 Red Blood Count 3.77 L, Mean Corpuscular Volume 87.5, Mean Corpuscular Hemoglobin 28.6, Mean Corpuscular Hemoglobin Concent 32.7, Red Cell Distribution Width 12.4, Neutrophils (%) (Auto) 62.4, Lymphocytes (%) (Auto) 17.5 L, Monocytes (%) (Auto) 13.0 H, Eosinophils (%) (Auto) 5.6 H, Basophils (%) (Auto) 0.5, Neutrophils # (Auto) 3.6, Lymphocytes # (Auto) 1.0 L, Monocytes # (Auto) 0.8, Eosinophils # (Auto) 0.3, Basophils # (Auto) 0.0, Calcium Level 9.2, Aspa rtate Amino Transf (AST/SGOT) 14, Alanine Aminotransferase (ALT/SGPT) 11 L, Alkaline Phosphatase 94, Total Bilirubin 0.4, Total Protein 6.9, Albumin 2.6 L Microbiology Microbiology 10/12/18 Blood Culture - Preliminary, Resulted No Growth after 72 hours. All specime... 10/10/18 Blood Culture - Final, Complete NO GROWTH AFTER 5 DAYS 10/11/18 Surgical Biopsy Culture - Final, Complete Staphylococcus Aureus 10/11/18 Gram Stain - Final, Complete 10/11/18 Wound Culture - Final, Complete Staphylococcus Aureus 10/11/18 Anaerobic Culture - Final, Complete NIKI TROTTER MD Oct 16, 2018 12:27
[2018-10-16 14:00] VITALS: BP 154/90
[2018-10-16] MEDS: LEVEMIR (INSULIN DETEMIR) 1 UNITS/0.01ML SC SCH (20:19)
--- NOTE | 2018-10-16 21:37 | IPN ---
DATE: 10/16/2018 SUBJECTIVE: Mr. Lares was seen and examined this morning, laying comfortably in bed. He does not have any complaints this morning. He is currently awaiting placement in the subacute rehab. He has not had his dressing changed since the surgery and will have it changed during our exam. He denies any fever, chills, night sweats, any abdominal pain, nausea, vomiting or diarrhea. He denies any discomfort in his right hip and states he is feeling relatively well. He has no other complaints at this time. PHYSICAL EXAMINATION: Vital signs: Temperature 97.9, pulse 88, respirations 20, blood pressure 154/90 (111), pulse oximetry 98% on room air. General: This is a very pleasant 57-year-old male laying comfortably in his bed, no acute distress, appropriately answering questions. HEENT: Atraumatic, normocephalic. Pupils are equal, round and reactive. Neck is supple. Cardiovascular: Regular rate and rhythm. No audible murmurs, rubs or gallops. Lungs: Clear to auscultate bilaterally. No audible wheezing, rhonchi or rales. Abdomen: Positive bowel sounds in all four quadrants. Soft, nontender. Lower Extremities: No lower extremity edema or calf tenderness. Right lateral thigh drenched dressing over rosalind was removed. [place] were intact with no discharge or erythema around the surgical site. SANDRA drain had serosanguineous fluid. The fenestrated drain was removed. Some purulent and serosanguineous discharge was expressed with pressure. There was mild tenderness around the SANDRA drain insertion site. Slightly indurated but no erythema noted. Neurologic: No focal deficits noted. LABORATORIES: WBC 5.8, hemoglobin 10.8, hematocrit 33.0, platelets 260. Chemistries: Sodium 137, potassium 3.4, chloride 103, carbon dioxide 29, BUN 7, creatinine 0.72, fasting glucose 176, AST 14, ALT 11, alkaline phosphatase 94, CRP was 10.70, ESR greater than 140. Microbiology: Blood cultures times two negative for no growth, one at 5 days and another at 72 hours. Surgical biopsy cultures were positive for Staphylococcus (staph) aureus. No new imaging. 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 Wound cultures were positive for methicillin-sensitive Staphylococcus aureus (MSSA). PLAN: Status post zinc and ceftriaxone, currently on nafcillin 2 grams every 4 hours. He will continue as such until he is discharged, then will be on 12 grams continuous infusion over 6 weeks postoperatively, which is also supplemented with rifampin 300 mg twice a day. He will continue with IV antibiotics for at least 6 weeks until November 23, 2018. Then, he would follow with oral antibiotics for 6 months. SANDRA drain was removed today, which showed some purulent discharge from the site. We did recommend trending the C-reactive protein (CRP) and to see if clinical improvement around the insertion point. We will continue with antibiotics as prescribed. No additional changes will be made. At this time, we are currently waiting for acute rehabilitation placement at [facility].
[2018-10-16 22:00] VITALS: BP 143/91
[2018-10-17] MEDS: ANEXSIA, NORCO 7.5MG/325MG TABLET(HYDROCODONE/APAP) PO PRN ×2 (00:49→08:05)
[2018-10-17] MEDS: SODIUM CHLORIDE 0.9% INJ 10 ML SYR IV SCH (04:53)
[2018-10-17 06:00] VITALS: BP 155/90
[2018-10-17] MEDS ORDERED: FAMO20TA PO (06:18)
[2018-10-17] MEDS ORDERED: MOM30SS2 PO (06:18)
[2018-10-17] MEDS ORDERED: SENN-52 PO (06:18)
[2018-10-17] MEDS ORDERED: FLEEENE12 PR (06:18)
[2018-10-17] MEDS ORDERED: SLF IV ×2 (06:18)
[2018-10-17] MEDS ORDERED: CEFA2INJ4 IV (06:18)
[2018-10-17] MEDS ORDERED: PEG1POW PO (06:18)
[2018-10-17] MEDS ORDERED: HEPA100SYR IV ×2 (06:18)
[2018-10-17] MEDS ORDERED: INSUDET SC (06:18)
[2018-10-17] MEDS ORDERED: ACET-683 PO (06:18)
[2018-10-17] MEDS ORDERED: RIFA30CA PO (06:18)
[2018-10-17] MEDS ORDERED: FLOM0.4C39 PO (06:18)
[2018-10-17] MEDS ORDERED: CYCL10TA PO (06:18)
[2018-10-17] MEDS ORDERED: INSUHUMDS SC ×2 (06:18)
[2018-10-17] MEDS ORDERED: BISA10SU PR (06:18)
[2018-10-17] MEDS ORDERED: AMLO10TA5 PO (06:18)
[2018-10-17 07:09] LABS: ALBUMIN 2.7 GM/DL (3.2-5.2); ALT/SGPT 9 U/L (12-78); BILIRUBIN,TOTAL 0.5 MG/DL (0.2-1.0); BLOOD UREA NITROGEN 10 MG/DL (7-18); C REACTIVE PROTEIN QUANTITATIV 4.29 MG/DL (0.00-0.30); CALCIUM LEVEL 8.9 MG/DL (8.5-10.1); CARBON DIOXIDE LEVEL 29 MEQ/L (21-32); CHLORIDE LEVEL 104 MEQ/L (98-107); CREATININE FOR GFR 0.85 MG/DL (0.70-1.30); GLOMERULAR FILTRATION RATE > 60.0 (>56); GLUCOSE, FASTING 286 MG/DL (70-100); POTASSIUM SERUM 4.1 MEQ/L (3.5-5.1); SODIUM LEVEL 139 MEQ/L (136-145); TOTAL PROTEIN 6.3 GM/DL (6.4-8.2)
[2018-10-17] MEDS: HumaLOG INSULIN (NovoLOG) PER UNIT SC SCH (07:30)
[2018-10-17] MEDS: TAMSULOSIN 0.4 MG CAP PO SCH ×2 (08:05→08:42)
[2018-10-17 08:08] VITALS: BP 137/82
[2018-10-17] MEDS: amLODIPine 10 MG TAB PO SCH (08:08)
[2018-10-17] MEDS: BISACODYL 10 MG SUPP PR SCH (08:42)
[2018-10-17] MEDS: MIRALAX *UNIT DOSE* 17GM PACKET PO SCH ×2 (08:42)
[2018-10-17] MEDS: MOM 30ML SUSPENSION UDC PO SCH (08:42)
[2018-10-17] MEDS: SENOKOT S TAB PO SCH (08:42)
--- NOTE | 2018-10-17 10:49 | IPNPDOC ---
Subjective Date Seen The patient was seen on 10/17/18. Subjective Chief Complaint/HPI Patient is comfortable drain is out and it's possible discharge to [facility] today General: Denies: ROS Unobtainable, Chills, Night Sweats, Fatigue, Malaise, Normal Appetite, Other Symptoms Constitutional: Denies: Chills, Fever, Malaise, Night Sweats, Weakness, Fatigue, Weight Loss, Lethargy, Other Eyes: Denies: Pain, Vision change, Conjunctivae inflammation, Eyelid infla mmation, Redness, Other ENT: Denies: Head Aches, Ear Pain, Dysphagia, Sinus Congestion, Post Nasal Drip, Sore Throat, Epistaxis, Other Symptoms Skin: Denies: Rash, Lesions, Jaundice, Bruising, Itching, Dry, Breakdown, Nail Changes, Other Pulmonary: Denies: Dyspnea, Cough, Pleuritic Chest Pain, Other Symptoms Cardiovascular: Denies: Chest Pain, Palpitations, Orthopnea, Paroxysmal Noc. Dyspnea, Edema, Lt Headedness, Other Symptoms Gastrointestinal: Denies: Nausea, Vomiting, Abdominal Pain, Diarrhea, Constipation, Melena, Hematochezia, Other Symptoms Musculoskeletal: Denies: Neck Pain, Back Pain, Shoulder Pain, Arm Pain, Hand Pain, Leg Pain, Foot Pain, Joint Pain, Muscle Pain, Spasms, Other Symptoms Neurological: Denies: Weakness, Numbness, Incoordination, Change in speech, Confusion, Seizures, Other Symptoms Psych: Denies: Mood Normal, Anxiety, Depression, Memory Issues, Thoughts of Self Harm, Anger, Thoughts of Harming Other, Other Psych Objective Physical Examination General Exam: Positive: Alert, No Acute Distress Eye Exam: Positive: PERRLA, Conjunctiva & lids normal ENT Exam: Positive: Atraumatic, Mucous membr. moist/pink Neck Exam: Positive: Supple Chest Exam: Positive: Clear to auscultation, Normal air movement Heart Exam: Positive: Rate Normal, Normal S1, Normal S2 Abdomen Exam: Positive: Normal bowel sounds, Soft Skin Exam: Positive: Nl turgor and temperature Neuro Exam: Positive: Strength at 5/5 X4 ext, Sensation Intact Assessment /Plan Problems (1) Postoperative wound infection of right hip Status: Acute Problem Text: PT, OT in progress The wound drain was DC'd yesterday with some drainage Possible transfer to [facility] today on IV antibiotics followed by by mouth antibiotics as per IDs recommendations Further, as per orthopedics recommendations (2) HTN (hypertension) Status: Chronic Problem Text: Under well control Continue present meds (3) Hypokalemia Status: Acute Problem Text: Potassium supplement given Repeat labs in a.m. Plan/VTE VTE Prophylaxis Ordered?: No VTE Exclusion Pharmacological: Active Bleeding VS, I&O, 24H, Fishbone Vital Signs/I&O Vital Signs Date Time Temp Pulse Resp B/P (MAP) Pulse Ox O2 Delivery O2 Flow Rate FiO2 10/17/18 08:35 18 10/17/18 08:08 86 137/82 10/17/18 06:00 97.7 98 10/11/18 17:51 2.0 I&O- Last 24 Hours up to 6 AM 10/17/18 06:00 Intake Total 1970 ml Output Total 510 ml Balance 1460 ml Laboratory Data 24H LABS Laboratory Tests 2 10/16/18 11:52: Bedside Glucose (Misc Panel) 240H 10/16/18 17:46: Bedside Glucose (Misc Panel) 238H 10/16/18 19:52: Bedside Glucose (Misc Panel) 275H 10/17/18 06:18: Anion Gap 6L, Glomerular Filtration Rate > 60.0, Blood Urea Nitrogen 10, Creatinine 0.85, Sodium Level 139, Potassium Level 4.1#, Chloride Level 104, Carbon Dioxide Level 29, Calcium Level 8.9, Aspartate Amino Transf (AST/SGOT) 8, Alanine Aminotransferase (ALT/SGPT) 9L, Alkaline Phosphatase 98, Total Bilirubin 0.5, Total Protein 6.3L, Albumin 2.7L, C-Reactive Protein, Quantitative 4.29H, Albumin/Globulin Ratio 0.75L CBC/BMP Laboratory Tests 10/17/18 06:18 Calcium Level 8.9, Aspartate Amino Transf (AST/SGOT) 8, Alanine Aminotransferase (ALT/SGPT) 9 L, Alkaline Phosphatase 98, Total Bilirubin 0.5, Total Protein 6.3 L, Albumin 2.7 L Microbiology Microbiology 10/12/18 Blood Culture - Final, Complete NO GROWTH AFTER 5 DAYS 10/10/18 Blood Culture - Final, Complete NO GROWTH AFTER 5 DAYS 10/11/18 Surgical Biopsy Culture - Final, Complete Staphylococcus Aureus 10/11/18 Gram Stain - Final, Complete 10/11/18 Wound Culture - Final, Complete Staphylococcus Aureus 10/11/18 Anaerobic Culture - Final, Complete NIKI TROTTER MD Oct 17, 2018 10:48
--- NOTE | 2018-10-20 11:24 | DSES ---
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 OTHER DIAGNOSES: 1. Type 2 diabetes. 2. Hypertension. 3. History of CVA. 4. Coronary artery disease. 5. Hyperlipidemia. 6. Obstructive sleep apnea. 7. History of myocardial infarction. 8. History of gastrojejunal ulcer. 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 HISTORY: Mustapha is a 57-year-old male that had his right hip replaced approximately 3 weeks ago. He came into the office 2 weeks postoperatively and things looked good at that point. A few days after, he came back to the office seeing some drainage down his leg. The drainage did stop, but he started to develop some swelling and soreness in that area and then developed a fever. He went to the [facility] emergency room where he had a temperature of 102.5 with an elevated CRP and sed rate. He was transferred to [facility] to be prepared for her surgery by Dr. Villegas. The patient consented for the above elective procedure. OPERATION PERFORMED: Open irrigation and debridement and synovectomy of a right total hip replacement with exchange of the femoral head and polyethylene liner. Insertion of antibiotic beads and vancomycin powder into the wounds with insertion of a flat J-VAC drain superficially. HOSPITAL COURSE: The patient underwent an open irrigation and debridement and synovectomy of a right total hip replacement with exchange of the femoral head and polyethylene liner. Antibiotic beads and vancomycin powder were inserted into the wound in addition to a flat J-VAC drain inserted superficially. Surgery was done under general anesthesia and was uneventful. The patient did develop hypokalemia while inpatient and a potassium supplement was given. He was stable upon discharge. He was transferred to [facility] to continue his IV antibiotics until transitioned to oral antibiotics by Dr. Myles, Infectious Disease, as patient's wound cultures were positive for methicillin-sensitive Staphylococcus aureus. The patient will follow up in our office in 12-14 days for wound check and staple removal. He will also follow up with Dr. Myles, infectious disease, in approximately 2-3 weeks. The patient will follow up sooner if there is any increase in pain, redness, drainage, weakness, numbness or tingling in the extremity, fever greater than 101 degrees, or any other concerns. Please see medical record for additional details. MTDD
== END 2018-10-17 12:50 | disposition other institution (70) | DRG 301 ==
LOC: EDBD 18:44 → M ED 18:44 → M ED INP 20:55 → M MS5PR 23:05
PROVIDERS: ADMIT Orthopaedic Surgery; ATTEND Orthopaedic Surgery
PROC: 0SRR0JZ Replacement of Right Hip Joint, Femoral Surface with Synthetic Substitute, Open Approach (ICD-10-PCS; 2018-10-11)
PROC: 0SPR0JZ Removal of Synthetic Substitute from Right Hip Joint, Femoral Surface, Open Approach (ICD-10-PCS; principal; 2018-10-11 08:00)
PROC: 02HV33Z Insertion of Infusion Device into Superior Vena Cava, Percutaneous Approach (ICD-10-PCS; 2018-10-13)
DX: T84.51XA Infection and inflammatory reaction due to internal right hip prosthesis, initial encounter (principal); I10 Essential (primary) hypertension; E11.9 Type 2 diabetes mellitus without complications; E78.5 Hyperlipidemia, unspecified; B95.61 Methicillin susceptible Staphylococcus aureus infection as the cause of diseases classified elsewhere; Z86.73 Personal history of transient ischemic attack (TIA), and cerebral infarction without residual deficits; Z79.899 Other long term (current) drug therapy; Z79.4 Long term (current) use of insulin; Z88.8 Allergy status to other drugs, medicaments and biological substances; I25.10 Atherosclerotic heart disease of native coronary artery without angina pectoris; Z95.2 Presence of prosthetic heart valve; G47.30 Sleep apnea, unspecified; Z91.013 Allergy to seafood; I25.2 Old myocardial infarction; K59.00 Constipation, unspecified; E87.6 Hypokalemia; Y83.1 Surgical operation with implant of artificial internal device as the cause of abnormal reaction of the patient, or of later complication, without mention of misadventure at the time of the procedure

== ENCOUNTER → 2018-12-15 | Outpatient (REF) | payer BC ==
[~2018-12-15] MED LIST changes: +ACET-683 PO; +ACET25TA12 PO; +BISA10SU PR; +CEFA2INJ4 IV; +FAMO20TA PO; +FENO48TA13 PO; -FENO48TA2 PO; +FLEEENE12 PR; +FLOM0.4C39 PO; +HEPA100SYR IV; +HYDR-3713 PO; +INSUDET SC; +MOM30SS2 PO; +PEG1POW PO; +RIFA30CA PO; +SENN-52 PO; +SLF IV
[2018-12-15 11:57] LABS: BASO # 0.1 10^3/uL (0.0-0.2); BASO % 0.9 % (0.0-1.0); EOS # 0.1 10^3/uL (0.0-0.5); HEMATOCRIT 39.6 % (42.0-52.0); HEMOGLOBIN 12.5 g/dl (13.5-17.5); LYMPH # 1.4 10^3/uL (1.5-5.0); LYMPH % 25.6 % (24.0-44.0); MEAN CORPUSCULAR HEMOGLOBIN 27.6 pg (27.0-33.0); MEAN CORPUSCULAR HGB CONC 31.6 g/dl (32.0-36.5); MEAN CORPUSCULAR VOLUME 87.4 fl (80.0-96.0); MONO # 0.6 10^3/uL (0.0-0.8); MONO % 9.9 % (0.0-5.0); NEUTROPHILS # 3.4 10^3/uL (1.5-8.5); NEUTROPHILS % 61.4 % (36.0-66.0); PLATELET COUNT, AUTOMATED 302 10^3/uL (150-450); RED BLOOD COUNT 4.53 10^6/uL (4.30-6.10); WHITE BLOOD COUNT 5.6 10^3/uL (4.0-10.0)
[2018-12-15 12:23] LABS: ALBUMIN 3.9 GM/DL (3.2-5.2); ALT/SGPT 21 U/L (12-78); BILIRUBIN,TOTAL 0.4 MG/DL (0.2-1.0); BLOOD UREA NITROGEN 16 MG/DL (7-18); C REACTIVE PROTEIN QUANTITATIV < 0.30 MG/DL (0.00-0.30); CALCIUM LEVEL 9.3 MG/DL (8.5-10.1); CARBON DIOXIDE LEVEL 28 MEQ/L (21-32); CHLORIDE LEVEL 102 MEQ/L (98-107); CREATININE FOR GFR 0.74 MG/DL (0.70-1.30); GLOMERULAR FILTRATION RATE > 60.0 (>56); GLUCOSE, FASTING 227 MG/DL (70-100); POTASSIUM SERUM 4.7 MEQ/L (3.5-5.1); SODIUM LEVEL 138 MEQ/L (136-145); TOTAL PROTEIN 7.3 GM/DL (6.4-8.2)
[2018-12-15 12:39] LABS: ERYTHROCYTE SEDIMENTATION RATE 22 mm/hr (0-20)
== END ==
LOC: M SFHCPLAZ 10:43
PROVIDERS: ATTEND Internal Medicine Infectious Disease
DX: A49.01 Methicillin susceptible Staphylococcus aureus infection, unspecified site (principal)

== ENCOUNTER → 2019-01-12 | Outpatient (REF) | payer BC ==
[~2019-01-12] MED LIST changes: -VALS1TAB49 PO; +VALS40TA9 PO
[2019-01-12 12:42] LABS: BASO # 0.1 10^3/uL (0.0-0.2); EOS # 0.1 10^3/uL (0.0-0.5); HEMATOCRIT 40.3 % (42.0-52.0); HEMOGLOBIN 12.8 g/dl (13.5-17.5); LYMPH # 1.6 10^3/uL (1.5-5.0); LYMPH % 27.3 % (24.0-44.0); MEAN CORPUSCULAR HEMOGLOBIN 26.6 pg (27.0-33.0); MEAN CORPUSCULAR HGB CONC 31.8 g/dl (32.0-36.5); MEAN CORPUSCULAR VOLUME 83.6 fl (80.0-96.0); MONO # 0.7 10^3/uL (0.0-0.8); MONO % 11.2 % (0.0-5.0); NEUTROPHILS # 3.4 10^3/uL (1.5-8.5); NEUTROPHILS % 58.2 % (36.0-66.0); PLATELET COUNT, AUTOMATED 271 10^3/uL (150-450); RED BLOOD COUNT 4.82 10^6/uL (4.30-6.10); WHITE BLOOD COUNT 5.9 10^3/uL (4.0-10.0)
[2019-01-12 13:26] LABS: ALBUMIN 3.9 GM/DL (3.2-5.2); ALT/SGPT 24 U/L (12-78); BILIRUBIN,TOTAL 0.5 MG/DL (0.2-1.0); BLOOD UREA NITROGEN 17 MG/DL (7-18); C REACTIVE PROTEIN QUANTITATIV 0.33 MG/DL (0.00-0.30); CARBON DIOXIDE LEVEL 28 MEQ/L (21-32); CHLORIDE LEVEL 104 MEQ/L (98-107); CREATININE FOR GFR 0.85 MG/DL (0.70-1.30); GLOMERULAR FILTRATION RATE > 60.0 (>56); GLUCOSE, FASTING 209 MG/DL (70-100); POTASSIUM SERUM 4.6 MEQ/L (3.5-5.1); SODIUM LEVEL 140 MEQ/L (136-145); TOTAL PROTEIN 7.5 GM/DL (6.4-8.2)
[2019-01-12 13:31] LABS: ERYTHROCYTE SEDIMENTATION RATE 17 mm/hr (0-20)
== END ==
LOC: M SFHCPLAZ 10:14
PROVIDERS: ATTEND Internal Medicine Infectious Disease
DX: A49.01 Methicillin susceptible Staphylococcus aureus infection, unspecified site (principal)

== ENCOUNTER → 2019-06-12 | Outpatient (REF) ==
[~2019-06-12] MED LIST changes: +CYCL-707 PO; -CYCL10TA PO; -FENO48TA13 PO; +FENO48TA7 PO; +REPA140I2 SC; -REPA1INJ SC
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
--- NOTE | 2019-06-14 07:30 | REP ---
Clinical: Technique: Portable supine view of the chest. Findings: Cardiomegaly cannot be excluded. Diffuse bilateral pulmonary parenchymal opacities (right greater than left) noted. Skeletal structures are grossly intact. Electronically Signed by Marquise Zavala MD 06/13/2019 12:20 P
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
== END ==
LOC: M LAB 12:04